=== PATIENT | female | born 1945 | race Caucasian/White ===

== ENCOUNTER 2020-08-08 01:09 | Inpatient (IN) | payer OTHER ==
--- OUTSIDE RECORDS SUMMARY | 2020-08-08 01:12 | XMS REPORT ---
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 Problem Chronic depressive person F34.1 Ac tive Problem Uncontrolled type 2 diabetes E11.65 Active mellitus with hyperglycemia Problem Anxiety F41.9 Active Problem Unsteady gait R26.81 Active Problem Primary insomnia F51.01 Active Problem 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 Active Problem Hyperlipidemia E78.5 Active Problem Allergic rhinitis J30.9 Active Problem Gastroesophageal reflux disease, K21.9 Active esophagitis presence not specified Problem Controlled type 2 diabetes mellitus E11.9 Active without complication, unspecified half-way insulin use status Problem Chronic fatigue R53.82 Active Problem Hallucinations, visual R44.1 Activ e Problem Macular degeneration, unspecified H35.30 Active laterality, unspecified type Problem Auditory hallucinations R44.0 Acti ve Problem Multiple joint pain M25.50 Active Problem Hyperglycemia R73.9 Active Problem HTN (hypertension) I10 Active Problem GERD (gastroesophageal reflux K21.9 Active disease) Problem History of tachycardia Z87.898 Activ e Problem Tremor R25.1 Active Problem Diarrhea, unspecified type R19.7 A ctive Problem Seasonal allergic rhinitis, J30.2 Active unspecified trigger Medications No Known Medications Results No Known Results Summary Purpose eClinicalWorks Submission
--- OUTSIDE RECORDS SUMMARY | 2020-08-08 01:12 | XMS REPORT ---
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 Active Assessment Hyperlipidemia E78.5 Active Assessment Anxiety F41.9 Active Assessment HTN (hypertension) I10 Active Assessment Uncontrolled type 2 diabetes E11.65 Active mellitus with hyperglycemia Problem Depression, unspecified depression F32.9 Active type [...] diabetes mellitus E11.9 Active without complication, unspecified intermediate project manager insulin use status Problem Chronic fatigue R53.82 [...] allergic rhinitis, J30.2 Active unspecified trigger Medications Medication Code Code Instructions Start End Status Dosage System Date Date Metformin HCl [facility] 20901203796 500 MG Orally Active 2 tablet twice a day Aspirin Adult [facility] 78620644222 325 MG Orally Active 1 tablet Once a day NovoFine Plus [facility] 39215796411 32G X 4 MM SC Active as directed once daily Metformin HCl [facility] 92327979361 500 Active TAKE 2 TABLETS BY MOUTH EVERY MORNING AND 2 TABLETS EVERY EVENING Fluticasone [facility] 22616206613 50 MCG/ACT Active USE 2 SPRAYS Propionate Externally IN EACH Once a day NOSTRIL EVERY DAY Zofran [facility] 48062618161 4 MG Orally May Active 1 tablet every 12 hrs 29, prn nausea 2019 Ciclopirox [facility] 07504529437 8 % Externally Active 1 application Once a day at to affecte d bedtime, and nail area clean nail once a week with alcohol x 3 months [facility] 91538233007 - up to 4 Active as dire cted Lancets Super times a day Thin Pantoprazole [facility] 73645055205 40 Active TAKE 1 TABLET Sodium BY MOUTH EVERY DAY Paroxetine HCl [facility] 33127790592 20 Active TAKE 1 TABLET BY MOUTH EVERY NIGHT AT BEDTIME Metformin HCl [facility] 73317830694 500 MG Active TAKE 2 TABLETS BY MOUTH EVERY MORNING AND 2 TABLETS EVERY EVENING Metoprolol [facility] 80404876014 25 Active TAKE 1 TA BLET Tartrate BY MOUTH TWICE DAILY [place] [facility] 97232533472 10-325 MG Active 1 tablet a s Orally every 6 needed hrs Pantoprazole [facility] 17509568499 40 MG Active TAKE 1 TABLET Sodium BY MOUTH EVERY DAY Tresiba [facility] 47052704252 100 UNIT/ML Active 14 units in FlexTouch Subcutaneous pm titrat e up daily 2 units every 3 days until fbg less 100 (max of 20 units daily) True Metrix [facility] 56994964311 - Active TEST FOU R Blood Glucose TIMES MARIE Y Test Lancets Super NDC 0 n/s finger April 07, Active one Thin stick twice 2017 NovoFine Plus [facility] 45104974917 32G X 4 MM SC Active as directed once daily Trazodone HCl [facility] 72478704110 50 MG Orally Inactive 1 tablet at Once a day bedtime as needed Paroxetine HCl [facility] 92668413614 30 MG Orally Active 1 tablet Once a day before bedtime Restasis [facility] 78165499040 0.05 % Active 1 drop into Ophthalmic affected eye Twice a day Results No Known Results Summary Purpose eClinicalWorks Submission
--- OUTSIDE RECORDS SUMMARY | 2020-08-08 01:12 | XMS REPORT | Continuity of Care Document ---
:1945 Author Organization [facility] t Address [address] [place] [address] Care Team Providers Name Role Phone Unavailable Unavailable Unavailable Problems Condition Condition Condition Status Onset Resolution Last Treating Co mments Source Name Details Category Date Date Treatment Clinician Date Allergic Allergic Problem [facility] GERD GERD Problem Active [facility] (gastroeso (gastroeso [facility] - phageal phageal [facility] reflux reflux l disease) disease) Outpat i ent Clinics Hyperlipid Hyperlipid Problem [facility] em[facility] Problem Active [facility] depressive depressive [facility] - person person [facility] Depression Depression Problem Active [facility] , , [facility] - unspecifie unspecifie Me moria d d l depression depression Ou tpati type type ent Clinics HTN HTN Problem Active [facility] (hypertens (hypertens [facility] - ion) ion) [facility] Controlled Controlled Problem Active [facility] type 2 type 2 [facility] - diabetes diabetes [facility] a mellitus mellitus l without without Outpati complicati complicati en t on, on, Clinics unspecifie unspecifie d long d longterm term insulin insulin use status use status Multiple Multiple Problem Active [facility] joint pain joint pain [facility] Diarrhea, Diarrhea, Problem Active [facility] unspecifie unspecifie [facility] - d type d type [facility] ent Clinics Hyperglyce Hyperglyce Problem Active [facility] nania annia [facility]ics Seasonal Seasonal Problem Active [facility] allergic allergic [facility] rhinitis, rhinitis, Jas laura unspecifie unspecifie l d trigger d trigger Outp ati ent Clinics History of History of Problem Active [facility] tachycardi tachycardi [facility] - a a [facility] Pinched Pinched Problem Active [facility] nerve nerve [facility] Sciatica Sciatica Problem Active [facility] associated associated [facility] - with with [facility]oria disorder disorder l of lumbar of lumbar Outp ati spine spine ent Clinics Tremor Tremor Problem Active [facility] Uncontroll Uncontroll Problem Active [facility] ed type 2 ed type 2 [facility] - diabetes diabetes Memori a mellitus mellitus l with with Outpati hyperglyce hyperglyce en t annia annia Clinics Unsteady Unsteady Problem Active [facility] gait gait [facility] Auditory Auditory Problem Active [facility] hallucinat hallucinat [facility] - ions ions [facility] Chronic Chronic Problem Active [facility] fatigue fatigue [facility] Anxiety Anxiety Problem Active [facility] Hallucinat Hallucinat Problem Active [facility] ions, ions, [facility] visual visual [facility] Macular Macular Problem Active [facility] degenerati degenerati [facility] - on, on, Memoria unspecifie unspecifie l d d [facility] laterality laterality en t , , Clinics unspecifie unspecifie d type d type Elevated Elevated Problem Active [facility] lymphocyte lymphocyte [facility] - s s [facility] Primary Primary Problem Active [facility] insomnia insomnia [facility] Allergies, Adverse Reactions, Alerts Allergy Allergy Status Severity Reaction(s) Onset Inactive Treating Comm ents Source Name Type Date Date Clinician PCN Adverse Active liver issues [facility] Reaction [facility] Benadryl Adverse Active heart race [facility] Reaction [facility] Zocor Adverse Active myalgia [facility] Reaction [facility] Lipitor Adverse Active myalgia [facility] Reaction [facility] Januvia Adverse Active joint pain [facility] Reaction [facility] Amoxicil Adverse Active Info Not [facility] luz maria Reaction Available [facility] Augmenti Adverse Active Info Not [facility] n Reaction Available [facility] Medications Ordered Filled Start Stop Current Ordering Indication Dosage Frequency Signature Comments Components Source Medication Medication Date Date Medication? Clinician (SIG) Name Name Refugio Huff Yes Na Zuñiga [address] [facility] Zofran Zofran Yes Na Zuñiga [address] [facility] Lancets Lancets Yes Na Zuñiga one [facility] Super Thin Super Thin 5-08 Ricardo es - 00:00: [facility] Fluticasone Fluticasone Yes Na Zuñiga USE [address] [facility] [facility] Propionate Propionate SPRAYS IN [facility] NOSTRIL l EVERY DAY [facility] NovoFine NovoFine Yes Na Zuñiga as [facility] Plus Plus directed [facility] Osceola Osceola Yes Na Zuñiga [address] [facility] as needed [facility] Metformin Metformin Yes Na Zuñiga TAKE [address] [facility] [facility] HCl HCl TABLETS BY [facility] - MOUTH Memoria EVERY l MORNING Outpati AND 2 ent TABLETS Clinics EVERY EVENING Ciclopirox Ciclopirox Yes Na Zuñiga [address] [facility] applicatio [facility] - n to [facility]oria affected l nail area [facility] True Metrix True Metrix Yes Na Zuñiga TEST FOUR [facility] Blood Blood TIMES [facility] - Glucose Glucose DAILY [facility] Test Test l [facility] Pantoprazol Pantoprazol Yes Na Zuñiga TAKE [address] e Sodium e Sodium TABLET BY L[facility]a kes - MOUTH Memoria EVERY DAY l [facility] Aspirin Aspirin Yes Na Zuñiga [address] Adult Adult [facility] Yes Na Zuñiga as [facility] Lancets Lancets directed [facility] - Super Thin Super Thin Mem oria l [facility] Paroxetine Paroxetine Yes Na Zuñiga TAKE [address] [facility] HCl HCl TABLET BY [facility] - MOUTH Memoria EVERY l NIGHT AT Outpati BEDTIME ent Clinics Metformin Metformin Yes Na Zuñiga [address] HCl HCl [facility] Tresiba Tresiba Yes Na Zuñiga [address] FlexTouch FlexTouch in pm [facility] s - titrate up Memoria 2 units l every 3 Outpati days until ent fbg less Clinics 100 (max of 20 units daily) Paroxetine Paroxetine Yes Na Zuñiga [address] HCl HCl before [facility] - bedtime [facility] ent Clinics Restasis Restasis Yes Na Zuñiga [address] [facility] - affected Memoria eye l Outpati ent Clinics Metformin Metformin Yes Na Zuñiga TAKE [address] [facility] [facility] HCl HCl TABLETS BY [facility] - MOUTH Memoria EVERY l MORNING Outpati AND 2 ent TABLETS Clinics EVERY EVENING Metoprolol Metoprolol Yes Na Zuñiga TAKE [address] [facility] Tartrate Tartrate TABLET BY [facility]a kes - MOUTH [facility] TWICE l DAILY Outpati ent Clinics Pantoprazol Pantoprazol Yes Na Zuñiga TAKE [address] [facility] e Sodium e Sodium TABLET BY Letha kes - MOUTH Memoria EVERY DAY l Outpati ent Clinics Trazodone Trazodone Yes Na Zuñiga [address] HCl HCl at bedtime [facility] - as needed [facility] ent Clinics Procedures This patient has no known procedures. Encounters Start End Encounter Admission Attending Care Care Encounter Source Date/Time Date/Time Type Type Clinicians Facility Department ID 2020-07-17 2020-07-17 [facility] [id number] [facility] 16:08[facility]00 16[facility]08:[address] [facility] Medicine l Medicine Outpati ent Clinics 2020-06-28 2020-06-28 [facility] [id number] [facility] 08[facility]20:00 08:20:[address] [facility] Medicine l Medicine Outpati ent Clinics 2020-05-29 2020-05-29 [facility] [id number] 08[facility]20:00 08:20:[address] [facility] Medicine l Medicine Outpati ent Clinics 2020-05-26 2020-05-26 [facility] [id number] [facility] 08[facility]19:00 08:19:[address] [facility] Medicine l Medicine Outpati ent Clinics 2020-03-29 2020-03-29 [facility] [id number] [facility] 09:20:00 09:20:[address] [facility] Medicine l Medicine Outpati ent Clinics 2020-03-15 2020-03-15 [facility] [id number] [facility] 09:20:00 09:20:[address] [facility] - [facility] Medicine l Medicine Outpati ent Clinics 2019-12-28 2019-12-28 [facility] [id number] [facility] 14[facility]40:00 14:40:[address] [facility] - [facility] Medicine l Medicine Outpati ent Clinics 2019-12-03 2019-12-03 [facility] [id number] 09:02:00 09:02:[address] [facility] - [facility] Medicine l Medicine Outpati ent Clinics 2019-11-05 2019-11-05 [facility] [id number] [facility] 10:40:00 10:40:[address] [facility] - Drive [facility] Medicine l Medicine Outpati ent Clinics 2019-09-22 2019-09-22 [facility] [id number] [facility] 09:45:00 09:45:[address] [facility] - [facility] Medicine l Medicine Outpati ent Clinics 2019-08-06 2019-08-06 [facility] [id number] 13:20:00 13:20:[address] [facility] - [facility] Medicine l Medicine Outpati ent Clinics 2019-07-28 2019-07-28 [facility] [id number] [facility] 09:12:00 09:12:[address] [facility] - Drive [facility] Medicine l Medicine Outpati ent Clinics 2019-07-05 2019-07-05 [facility] [id number] [facility] 09:57:00 09:57:[address] [facility] - Drive [facility] Medicine l Medicine Outpati ent Clinics 2019-05-31 2019-05-31 [facility] [id number] 16:25:00 16:25:[address] [facility] - Drive [facility] Medicine l Medicine Outpati ent Clinics 2019-01-12 2019-01-12 [facility] [id number] [facility] 09[facility]29:00 09:29:[address] [facility] - Drive [facility] Medicine l Medicine Outpati ent Clinics 2019-01-11 2019-01-11 [facility] [id number] [facility] 09[facility]30:00 09:30:[address] [facility] - Drive [facility] Medicine l Medicine Outpati ent Clinics 2018-12-04 2018-12-04 [facility] [id number] [facility] 11:01:00 11:01:[address] [facility] - Drive [facility] Medicine l Medicine Outpati ent Clinics 2018-12-03 2018-12-03 [facility] [id number] [facility] 16:11:00 16:11:[address] [facility] - Drive [facility] Medicine l Medicine Outpati ent Clinics 2018-11-23 2018-11-23 [facility] [id number] 09:06:00 09:06:[address] [facility] - Drive [facility] Medicine l Medicine Outpati ent Clinics 2018-11-10 2018-11-10 [facility] [id number] [facility] 10:15:00 10:15:[address] [facility] - Drive [facility] Medicine l Medicine Outpati ent Clinics 2018-08-25 2018-08-25 [facility] [id number] [facility] 10:26:00 10:26:[address] [facility] - Drive [facility] Medicine l Medicine Outpati ent Clinics 2018-08-04 2018-08-04 [facility] [id number] 10:15:00 10:15:[address] [facility] - Drive [facility] Medicine l Medicine Outpati ent Clinics 2018-06-24 2018-06-24 [facility] [id number] [facility] 10:15:00 10:15:[address] [facility] - Drive [facility] Medicine l Medicine Outpati ent Clinics 2018-05-04 2018-05-04 [facility] [id number] [facility] 10:00:00 10:00:[address] [facility] - Drive [facility] Medicine l Medicine Outpati ent Clinics 2018-04-22 2018-04-22 [facility] [id number] [facility] 17:08:00 17:08:[address] [facility] - Drive [facility] Medicine Outpati ent Clinics 2018-04-07 2018-04-07 [facility] [id number] 15:11:00 15:11:00 [place] [employer] - [employer] [facility] Medicine Outpati ent Clinics 2018-04-06 2018-04-06 [facility] [id number] 09:00:00 09:00:00 t ih[place] s - [employer] [facility] Medicine Outpati ent Clinics 2018-03-23 2018-03-23 [facility] [id number] [facility] 14:47:00 14:47:00 t [place] [employer] [facility] Medicine Outpati ent Clinics 2018-03-23 2018-03-23 [facility] [id number] 11:53:00 11:53:00 t [place] [employer] [facility] Medicine Outpati ent Clinics 2018-03-18 2018-03-18 [facility] [id number] 08:45:00 08:45:00 t [place] [employer] [facility] Medicine Outpati ent Clinics Results This patient has no known results.
--- OUTSIDE RECORDS SUMMARY | 2020-08-08 01:12 | XMS REPORT ---
:1945 Author Organization eClinicalWorks Care Team Providers Name Role Phone Zuñiga, Na Provider Role Unavailable Allergies, Adverse Reactions, Alerts Substance Reaction Event Type PCN liver issues Drug Allergy Zocor myalgia Drug Allergy Lipitor myalgia Drug Allergy Januvia joint pain Drug Allergy Benadryl heart race Drug Allergy Augmentin Info Not Available Drug Allergy Amoxicillin Info Not Available Drug Allergy Problems Problem Type Condition Code Onset Dates Condition Statu s Assessment Gastroesophageal reflux disease, K21.9 Active esophagitis presence not specified Assessment Shaking R25.1 Active Assessment Primary insomnia F51.01 Active Assessment Elevated [...] diabetes mellitus E11.9 Active without complication, unspecified penitentiary insulin use status Problem Chronic fatigue R53.82 [...] Start End Status Dosage System Date Date Juany [facility] 66526375896 4 MG Orally May Active 1 tablet every 12 hrs , prn nausea 2019 Ciclopirox [facility] 71555046286 8 % Externally Active 1 application Once a day at to affecte d bedtime, and nail area clean nail once a week with alcohol x 3 months Lancets Super NDC 0 n/s finger April 07, Active one Thin stick twice 2017 Paroxetine HCl [facility] 00453639073 20 Inactive TAKE 1 TABLET BY MOUTH EVERY NIGHT AT BEDTIME Tresiba [facility] 67582342894 100 UNIT/ML Active 14 units in FlexTouch Subcutaneous pm titrat e up daily 2 units every 3 days until fbg less 100 (max of 20 units daily) Fluticasone [facility] 16572684499 50 MCG/ACT Active USE 2 SPRAYS Propionate Externally IN EACH Once a day NOSTRIL EVERY DAY True Metrix [facility] 93603232153 - Active TEST FOU R Blood Glucose TIMES MARIE Y Test Paroxetine HCl [facility] 06832155950 30 MG Orally Active 1 tablet Once a day before bedtime Restasis [facility] 80756338756 0.05 % Active 1 drop into Ophthalmic affected eye Twice a day Pantoprazole [facility] 40999475845 40 MG Active TAKE 1 TABLET Sodium BY MOUTH EVERY DAY Trazodone HCl [facility] 24213466972 50 MG Orally Inactive 1 tablet at Once a day bedtime as needed Metformin HCl [facility] 39671864454 500 MG Active TAKE 2 TABLETS BY MOUTH EVERY MORNING AND 2 TABLETS EVERY EVENING NovoFine Plus [facility] 15116076580 32G X 4 MM SC Active as directed once daily [facility] 44077847520 - up to 4 Active as dire cted Lancets Super times a day Thin Metformin HCl [facility] 87756432149 500 Active TAKE 2 TABLETS BY MOUTH EVERY MORNING AND 2 TABLETS EVERY EVENING [place] [facility] 47502585606 10-325 MG Active 1 tablet a s Orally every 6 needed hrs Metformin HCl [facility] 13518525807 500 MG Orally Active 2 tablet twice a day Prozac [facility] 59158566701 20 MG Orally May Active 1 capsu le Once a day 2019 Metoprolol [facility] 23112809870 25 Active TAKE 1 TA BLET Tartrate BY MOUTH TWICE DAILY Pantoprazole [facility] 04840605052 40 Active TAKE 1 TABLET Sodium BY MOUTH EVERY DAY NovoFine Plus [facility] 62333170117 32G X 4 MM SC Active as directed once daily Aspirin Adult [facility] 89437718935 325 MG Orally Active 1 tablet Once a day Results No Known Results Summary Purpose eClinicalWorks Submission
--- OUTSIDE RECORDS SUMMARY | 2020-08-08 01:12 | XMS REPORT ---
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 Problem Unsteady gait R26.81 Active Problem Uncontrolled type 2 diabetes E11.65 Active mellitus with hyperglycemia Problem 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 Active Problem Allergic rhinitis J30.9 Active Problem Macular degeneration, unspecified H35.30 Active laterality, unspecified type Problem Controlled type 2 diabetes mellitus E11.9 Active without complication, unspecified nursing home insulin use status Problem Chronic depressive person F34.1 Ac tive Problem Primary insomnia F51.01 Active Problem Hallucinations, visual R44.1 Activ e Problem Anxiety F41.9 Active Problem Auditory hallucinations R44.0 Acti ve Problem Chronic fatigue R53.82 Active Problem GERD (gastroesophageal reflux K21.9 Active disease) Problem Multiple joint pain M25.50 Active Problem Hyperlipidemia E78.5 Active Problem HTN (hypertension) I10 Active Problem History of tachycardia Z87.898 Activ e Problem Seasonal allergic rhinitis, J30.2 Active unspecified trigger Problem Hyperglycemia R73.9 Active Problem Pinched nerve G58.9 Active Problem Depression, unspecified depression F32.9 Active type Problem Diarrhea, unspecified type R19.7 A ctive Problem Tremor R25.1 Active Medications No Known Medications Results No Known Results Summary Purpose eClinicalWorks Submission
[2020-08-08 01:48] LABS: Absolute Lymphocytes (CBC) 1.9 K/uL (0.7-4.9); Basophils % 0.6 % (0-1.3); Hematocrit 38.2 % (36.0-45.0); Lymphocytes % 28.6 % (15.3-44.8)
[2020-08-08 01:51] LABS: Protime INR 0.99
[2020-08-08 02:00] LABS: ALT/SGPT 21 U/L (12-78); AST/SGOT 15 U/L (15-37); Albumin 3.8 g/dL (3.4-5.0); Alkaline Phosphatase 45 U/L (45-117); BUN Blood Urea Nitrogen 20 mg/dL (7-18); Bicarbonate 29 mmol/L (21-32); Bilirubin Direct 0.1 mg/dL (0-0.2); Bilirubin Total 0.3 mg/dL (0.2-1.0); Creatine Phosphokinase 68 U/L (26-192); Glucose Level 244 mg/dL (74-106); Lipase 169 U/L (73-393); Magnesium 2.1 mg/dL (1.8-2.4); Potassium 3.5 mmol/L (3.5-5.1); Protein, Total 7.7 g/dL (6.4-8.2); Sodium Level 137 mmol/L (136-145); Troponin (Emerg Dept Use Only) < 0.02 ng/mL (0.0-0.045)
[2020-08-08 02:42] LABS: Urine Blood NEGATIVE (NEG); Urine Glucose 2+ (NEG); Urine Protein NEGATIVE (NEG); Urine Specific Gravity 1.025 (1.005-1.030); Urine pH 5.5 (5.0-7.0)
[2020-08-08 02:43] LABS: Urine Bacteria <20 /HPF (<20); Urine Culture Reflex Order NOT NEEDED; Urine RBC <5 /HPF (NONE SEEN)
--- NOTE | 2020-08-08 03:16 | EDPHYS ---
Physician Documentation [facility] Name: Cora Moon Age: 74 yrs Sex: Female : 1945 Arrival Date: 08/08/2020 Time: 01:09 Bed 6 Private MD: ED Physician Romie Noland HPI: 08/08 06:37 This 74 yrs old Female presents to ER via EMS with complaints of Altered tw4 Mental Status. 06:37 The patient presents with decreased mental status, disorientation. Onset: The tw4 symptoms/episode began/occurred today. Possible causes: unknown. Associated signs and symptoms: The patient has no apparent associated signs or symptoms. Current symptoms: In the emergency department the patient's symptoms are unchanged from the initial presentation. Patient's baseline: Neuro: alert but confused, Motor: no deficits, Ambulation: walks without assistance, Speech: normal. The patient has not experienced similar symptoms in the past. Historical: - Allergies: 01:12 PENICILLINS; ss - PMHx: 01:12 Diabetes - NIDDM; ss - PSHx: 01:12 None; ss - Immunization history:: Adult Immunizations unknown. - Social history:: Smoking status: unknown. ROS: 06:37 Constitutional: Negative for fever, chills, and weight loss, Eyes: Negative for injury, tw4 pain, redness, and discharge, Cardiovascular: Negative for chest pain, palpitations, and edema, Respiratory: Negative for shortness of breath, cough, wheezing, and pleuritic chest pain, Abdomen/GI: Negative for abdominal pain, nausea, vomiting, diarrhea, and constipation, Back: Negative for injury and pain, MS/Extremity: Negative for injury and deformity, Skin: Negative for injury, rash, and discoloration. 06:37 Neuro: Positive for altered mental status, Negative for dizziness, gait disturbance, headache, hearing loss, loss of consciousness, numbness, seizure activity, speech changes, syncope, near syncope, tingling, tinnitus, tremor, visual changes, weakness, acute changes. Exam: 06:37 Constitutional: This is a well developed, well nourished patient who is awake, alert, tw4 and in no acute distress. Head/Face: Normocephalic, atraumatic. Chest/axilla: Normal chest wall appearance and motion. Nontender with no deformity. No lesions are appreciated. Cardiovascular: Regular rate and rhythm with a normal S1 and S2. No gallops, murmurs, or rubs. Normal PMI, no JVD. No pulse deficits. Respiratory: Lungs have equal breath sounds bilaterally, clear to auscultation and percussion. No rales, rhonchi or wheezes noted. No increased work of breathing, no retractions or nasal flaring. Abdomen/GI: Soft, non-tender, with normal bowel sounds. No distension or tympany. No guarding or rebound. No evidence of tenderness throughout. Back: No spinal tenderness. No costovertebral tenderness. Full range of motion. Skin: Warm, dry with normal turgor. Normal color with no rashes, no lesions, and no evidence of cellulitis. MS/ Extremity: Pulses equal, no cyanosis. Neurovascular intact. Full, normal range of motion. 06:37 Neuro: Orientation: to person, place, Mentation: slow to respond, confused, Memory: is normal, Cranial nerves: CN II- XII are normal as tested, Motor: strength is normal, Sensation: is normal. Vital Signs: 01:15 BP 173 / 87; Pulse 93; Resp 18; Temp 98.2; Pulse Ox 99% on R/A; oe 02:06 BP 154 / 72; Pulse 91; Resp 16; Pulse Ox 99% ; rr5 03:07 BP 150 / 78; Pulse 89; Resp 19; Pulse Ox 98% ; rr5 04:15 BP 146 / 69; Pulse 88; Resp 20; Pulse Ox 99% ; rr5 04:57 BP 141 / 70; Pulse 80; Resp 16; Pulse Ox 98% ; rr5 MDM: 01:11 Patient medically screened. tw4 06:37 Differential Diagnosis: CVA, electrolyte abnormality, pneumonia, UTI, volume depletion. tw4 Data reviewed: vital signs, nurses notes. Data reviewed: lab test result(s), CBC, electrolytes, EKG, radiologic studies, CT scan. Data interpreted: Pulse oximetry: Interpretation: normal. Counseling: I had a detailed discussion with the patient and/or guardian regarding: the historical points, exam findings, and any diagnostic results supporting the discharge/admit diagnosis, lab results, radiology results. Physician consultation: Oniel STEELE regarding admission, to the medical/surgical unit. patient's condition, and will see patient in ED. 08/08 01:25 Order name: Basic Metabolic Panel; Complete Time: 02:44 tw4 08/08 03:07 Interpretation: Normal except: GLUC 244; BUN 20; GFR 83. tw4 08/08 01:25 Order name: CBC with Diff; Complete Time: 02:44 tw4 08/08 01:25 Order name: Ckmb; Complete Time: 02:44 tw4 08/08 01:25 Order name: CPK; Complete Time: 02:44 tw4 08/08 01:25 Order name: Hepatic Function; Complete Time: 02:44 tw4 08/08 03:07 Interpretation: Normal except: GLOB 3.9; A/G 1.0. tw4 08/08 01:25 Order name: Lipase; Complete Time: 02:44 tw4 08/08 01:25 Order name: CT Head Brain wo Cont 4 08/08 01:25 Order name: Magnesium; Complete Time: 02:44 tw4 08/08 01:25 Order name: Protime (+inr); Complete Time: 02:44 tw4 08/08 01:25 Order name: Ptt, Activated; Complete Time: 02:44 tw4 08/08 01:25 Order name: Troponin (emerg Dept Use Only); Complete Time: 02:44 tw4 08/08 01:39 Order name: Glucose, Ancillary Testing; Complete Time: 02:44 [facility] 08/08 03:07 Interpretation: Normal except: GLUC,ANCIL 251. tw4 08/08 01:56 Order name: Urine Microscopic Only; Complete Time: 02:44 08/08 01:57 Order name: Urine Dipstick--Ancillary (enter results); Complete Time: 02:44 08/08 01:25 Order name: EKG; Complete Time: 01:26 tw4 08/08 01:25 Order name: Cardiac monitoring; Complete Time: 01:35 tw4 08/08 01:25 Order name: EKG - Nurse/Tech; Complete Time: 01:35 4 08/08 01:25 Order name: IV Saline Lock; Complete Time: 01:35 4 08/08 01:25 Order name: Labs collected and sent; Complete Time: 01:35 tw4 08/08 01:25 Order name: NPO; Complete Time: 01:35 08/08 01:25 Order name: O2 Per Protocol; Complete Time: 01:38 4 08/08 01:25 Order name: O2 Sat Monitoring; Complete Time: 01:38 4 08/08 01:25 Order name: Urine Dipstick-Ancillary (obtain specimen); Complete Time: 01:57 [facility] 08/08 02:06 Order name: Straight Cath - Urine; Complete Time: 02:06 5 08/08 03:51 Order name: CONS Physician Consult EDMS Administered Medications: No medications were administered Disposition: 08/08/20 03:15 Hospitalization ordered by Sonali Franco for Observation. Preliminary diagnosis is Altered mental status, unspecified. - Bed requested for Telemetry/MedSurg (observation). - Status is Observation. ss - Condition is Stable. - Problem is new. - Symptoms are unchanged. Signatures: Dispatcher [employer] EDMS Viktoriya Lutz RN RN ss Keely Bishop RN RN cg Romie Noland MD MD tw4 Jesse Freitas RN RN rr5 Janette Nieves RN RN mt2 Corrections: (The following items were deleted from the chart) 04:10 03:15 Hospitalization Ordered by Sonali Franco MD for Observation. Preliminary cg diagnosis is Altered mental status, unspecified. Bed requested for Telemetry/MedSurg (observation). Status is Observation. Condition is Stable. Problem is new. Symptoms are unchanged. [facility] 04:56 04:10 08/08/2020 03:15 Hospitalization Ordered by Sonali Franco MD for Observation. ss Preliminary diagnosis is Altered mental status, unspecified. Bed requested for Telemetry/MedSurg (observation). Status is Observation. Condition is Stable. Problem is new. Symptoms are unchanged. cg
--- NOTE | 2020-08-08 03:16 | ER ---
Nurse's Notes [facility] Name: Cora Moon Age: 74 yrs Sex: Female : 1945 Arrival Date: 08/08/2020 Time: 01:09 Bed 6 Private MD: Diagnosis: Altered mental status, unspecified Presentation: 08/08 01:10 Chief complaint: EMS states: AMS that began at 1900 yesterday evening. Pt believes it's 2011 and was talking about things that didn't make sense at home. Coronavirus screen: Client denies travel out of the [place] in the last 14 days. Ebola Screen: Patient denies exposure to infectious person. Patient denies travel to an Ebola-affected area in the 21 days before illness onset. Initial Sepsis Screen: Does the patient meet any 2 criteria? No. Patient's initial sepsis screen is negative. Does the patient have a suspected source of infection? No. Patient's initial sepsis screen is negative. Risk Assessment: Do you want to hurt yourself or someone else? Patient reports no desire to harm self or others. Onset of symptoms was August 07, 2020. 01:10 Method Of Arrival: EMS: [facility] 01:10 Acuity: DERRICK 2 01:12 Care prior to arrival: Glucose check: 248. Triage Assessment: 01:36 General: Appears in no apparent distress. Behavior is calm. Pain: Denies pain. mt2 Historical: - Allergies: 01:12 PENICILLINS; ss - PMHx: 01:12 Diabetes - NIDDM; ss - PSHx: 01:12 None; ss - Immunization history:: Adult Immunizations unknown. - Social history:: Smoking status: unknown. Screenin:36 Abuse screen: Denies threats or abuse. Nutritional screening: No deficits noted. mt2 Tuberculosis screening: No symptoms or risk factors identified. Fall Risk Mental Status- Overestimates/Forgets Limitations (15 pts.). Assessment: 01:20 General: Appears in no apparent distress. comfortable, Behavior is calm, cooperative. rr5 Pain: Unable to use pain scale. Patient appears confused. Neuro: Level of Consciousness is awake, alert, obeys commands, confused, Oriented to person, Reports confused. Cardiovascular: Capillary refill < 3 seconds Patient's skin is warm and dry. Respiratory: Airway is patent Respiratory effort is even, unlabored, Respiratory pattern is regular, symmetrical. GI: No signs and/or symptoms were reported involving the gastrointestinal system. : No signs and/or symptoms were reported regarding the genitourinary system. EENT: No signs and/or symptoms were reported regarding the EENT system. Derm: Skin is intact, is healthy with good turgor, Skin temperature is warm. Musculoskeletal: Circulation, motion, and sensation intact. Capillary refill < 3 seconds. 01:35 Reassessment: Patient appears in no apparent distress at this time. send to CT scan. rr5 03:00 Reassessment: Patient appears in no apparent distress at this time. awaiting for rr5 results. family member at bedside. 03:30 Reassessment: hospitalist at bedside examining the patient. rr5 04:00 Reassessment: Patient appears in no apparent distress at this time. Patient and/or rr5 family updated on plan of care and expected duration. Pain level reassessed. 04:56 Reassessment: Patient appears in no apparent distress at this time. transferred to rr5 medical surgical floor, VS hemodynamically stable. Vital Signs: 01:15 BP 173 / 87; Pulse 93; Resp 18; Temp 98.2; Pulse Ox 99% on R/A; oe 02:06 BP 154 / 72; Pulse 91; Resp 16; Pulse Ox 99% ; rr5 03:07 BP 150 / 78; Pulse 89; Resp 19; Pulse Ox 98% ; rr5 04:15 BP 146 / 69; Pulse 88; Resp 20; Pulse Ox 99% ; rr5 04:57 BP 141 / 70; Pulse 80; Resp 16; Pulse Ox 98% ; rr5 ED Course: 01:09 Patient arrived in ED. ss 01:10 Janette Nieves, BARBARA is Primary Nurse. mt2 01:10 Romie Noland MD is Attending Physician. tw4 01:12 Triage completed. ss 01:12 Arm band placed on right wrist. ss 01:25 Patient has correct armband on for positive identification. Call light in reach. Side mt2 rails up X 1. Side rails up X2. 01:36 EKG done, by photographic equipment technician. reviewed by Romie Noland MD. oe 01:37 Inserted saline lock: 20 gauge in right antecubital area, using aseptic technique. mt2 ,using aseptic technique. STARTED BY LUIS Ponce RN Blood collected. 01:54 CT Head Brain wo Cont In Process Unspecified. EDMS 02:00 Urine collected: inserted aseptically by janette JIMENEZ. rr5 03:15 Sonali Franco MD is Hospitalizing Provider. tw4 04:19 No provider procedures requiring assistance completed. Patient admitted, IV remains in rr5 place. intact, No redness/swelling at site. Administered Medications: No medications were administered Outcome: 03:15 Decision to Hospitalize by Provider. tw4 04:19 Admitted to Med/surg accompanied by nurse, via stretcher, room 228, with chart, Report rr5 called to luana 04:19 Condition: stable 04:19 Instructed on the need for admit. 04:56 Patient left the ED. Signatures: Dispatcher [employer] EDViktoriya Heller, RN RN Jose Sweeney Terrence, MD MD tw4 Luis Freitas RN RN rr5 Janette Nieves RN RN mt2
--- NOTE | 2020-08-08 04:11 | P.HP ---
Certification for Inpatient With expected LOS: >2 Midnights Patient will require the following post-hospital care: None Practitioner: I am a practitioner with admitting privileges, knowledge of patient current condition, hospital course, and medical plan of care. Services: Services provided to patient in accordance with Admission requirements found in Title 42 Section 412.3 of the Code of Federal Regulations <Oniel Murray - Last Filed: 08/08/20 04:05> Patient History Date of Service: 08/08/20 Reason for admission: Altered mental status History of Present Illness: 74-year-old female with past medical history of type 2 diabetes mellitus presents to the emergency room brought by EMS with complaints of altered mental status. Per EMS-family noted patient to be confused and not acting herself and approximately 1900 yesterday evening. In the emergency room. I spoke with the son who is in the room with the patient. Patient is unable to answer questions. Son states that the patient had been doing just fine and from yesterday at 7:00 p.m. through today patient is noted to be confused, not answering questions appropriately and not making sense when she answers questions. She has no neurologic deficits. Strength is 5/5 on all 4 extremities. Patient has no other medical history other than diabetes. In the ER her blood glucose is slightly elevated to 244 on admission. Patient is alert and in no distress. CT of the head was negative for acute pathology. Tsh and ammonia pending. Son states that patient has no history of smoking, alcohol abuse or illegal drug use. Patient will be admitted and further evaluated. Home medications list reviewed: No - Past Medical/Surgical History -: Type 2 diabetes mellitus -: Unknown Psychosocial/ Personal History: Lives at home alone. - Family History Family History: Reviewed- Non-Contributory - Social History Smoking Status: Never smoker Alcohol use: No CD- Drugs: No Caffeine use: No Place of Residence: Home <Oniel Murray - Last Filed: 08/08/20 04:05> Date of Service: 08/08/20 <Sonali Franco - Last Filed: 08/10/20 13:37> Allergies Penicillins Allergy (Verified 08/08/20 07:35) Unknown Review of Systems is unable to be obtained <Oniel Murray - Last Filed: 08/08/20 04:05> Physical Examination - Vital Signs Temperature: 98.2 F Blood Pressure: 150/78 Pulse: 89 Respirations: 19 Pulse Ox (%): 98 (RA) - Physical Exam General: Alert, In no apparent distress, Cooperative HEENT: Atraumatic, Normocephalic, PERRLA Neck: Supple, No Thyromegaly, Other (Trachea midline) Respiratory: Clear to auscultation bilaterally, Normal air movement Cardiovascular: No edema, Normal pulses, Regular rate/rhythm Capillary refill: <2 Seconds Gastrointestinal: Normal bowel sounds, Soft and benign Musculoskeletal: No clubbing, No swelling, No contractures, No erythema Integumentary: No rashes, No breakdown, No significant lesion Neurological: Normal gait, Normal strength at 5/5 x4 extr, Normal tone - Studies Laboratory Data (last 24 hrs) 08/08/20 01:30: PT 11.7, INR 0.99, APTT 28.3 08/08/20 01:30: WBC 6.8, Hgb 12.7, Hct 38.2, Plt Count 347 08/08/20 01:30: Sodium 137, Potassium 3.5, BUN 20 H, Creatinine 0.69, Glucose 244 H, Magnesium 2.1, Total Bilirubin 0.3, AST 15, ALT 21, Alkaline Phosphatase 45, Lipase 169 <Oniel Murray - Last Filed: 08/08/20 04:05> Assessment and Plan - Plan Impression: Altered mental status: Type 2 diabetes mellitus: Plan: Altered mental status: Etiology unclear. CT of the head was negative for acute pathology. No intracranial bleed. Will order MRI of the brain. Consult Neurology-. Place on telemetry. Family member bedside. TSH and amm onia levels pending Type 2 diabetes mellitus: Will start Accu-Cheks a.c. HS. Will start mild sliding scale insulin. Patient's slightly elevated blood glucose at 244 on arri sandra to ED. Discharge Plan: Home Plan to discharge in: Greater than 2 days - Advance Directives Does patient have a Living Will: No Does patient have a Durable POA for Healthcare: No - Code Status/Comfort Care Code Status Assessed: Yes Time Spent Managing Pts Care (In Minutes): 55 <Oniel Murray - Last Filed: 08/08/20 04:05> - Problems (Diagnosis) (1) Altered mental status Current Visit: Yes Status: Acute (2) Drug intoxication Current Visit: Yes Status: Acute (3) Stroke Current Visit: Yes Status: Acute <Marino Francojessica Krystian - Last Filed: 08/10/20 13:37> Date of Service: 08/08/20 PATIENT SEEN AND EXAMINED. AGREE WITH ABOVE PLAN OF CARE. Subjective Date of Service: 08/08/20 PATIENT IS CONFUSED AND UNABLE TO ANSWER ANY OF MY QUESTIONS. SHE DOES NOD HER HEAD. SHE IS HAVING A HARD TIME FOLLOWING COMMANDS. SPOKE TO HER SON WHO STATES THAT SHE MAY HAVE ACCIDENTALLY TAKEN THE WRONG MEDICATION OR TAKEN AN EXTRA DOSE OF HER HOME MEDICATIONS. Review of Systems 10-point ROS is otherwise unremarkable Physical Examination - Vital Signs REVIEWED - Physical Exam General: Alert, In no apparent distress, Oriented x3 Respiratory: Clear to auscultation bilaterally, Normal air movement Cardiovascular: Regular rate/rhythm, Normal S1 S2, No murmurs Gastrointestinal: Normal bowel sounds, Soft and benign, Non-distended, No tenderness Musculoskeletal: No clubbing, No swelling, No tenderness Neurological: Normal tone, Cranial nerves 3-12 intact, Abnormal speech, Abnormal strength, Abnormal affect Assessment & Plan - Problems (Diagnosis) (1) Altered mental status Current Visit: Yes Status: Acute (2) Drug intoxication Current Visit: Yes Status: Acute (3) Stroke Current Visit: Yes Status: Acute - Plan 1. Physical therapy evaluation 2. Speech therapy evaluation 3. Anti-platelet therapy and statin therapy 4. Lipid profile in the morning 5. MRI of the brain/echocardiogram/carotid Doppler 6. Physically patient is doing well and may benefit more from outpatient physical therapy and inpatient rehab 7. Neurology consultation 8. Permissive hypertension and gradual blood pressure control 9. Neuro checks every 4 hr 10. GI and DVT prophylaxis <Sonali Franco - Last Filed: 08/10/20 13:37>
--- NOTE | 2020-08-08 05:20 | EKG ---
Test Date: 2020-08-08 Test Time: 01:25:13 Tangled Yarn Spool Straightener: LIDA MEASUREMENT RESULTS: Intervals: Rate: 87 IN: 116 QRSD: 82 QT: 388 QTc: 466 [place]: P: 61 IN: 116 QRS: 49 T: 18 INTERPRETIVE STATEMENTS: Normal sinus rhythm Nonspecific T wave abnormality Abnormal ECG Compared to ECG 01/06/2017 11:53:33 T-wave abnormality now present ST (T wave) deviation no longer present Possible ischemia no longer present Electronically Signed On 08-08-20 05:20:21 CDT by Lincoln De Guzman
[2020-08-08] MEDS: NA CHLORIDE 0.9% 1,000 ML IV SCH ×2 (05:42→16:53)
[2020-08-08] MEDS: INSULIN -REGULAR HUMAN 50 UNIT/0.5 ML ML SQ SCH ×4 (07:30→21:00)
[2020-08-08 07:50] VITALS: BMI 19.9
[2020-08-08] MEDS ORDERED: POTASSIUM CL SA 10 MEQ TAB PO ONE (09:00)
[2020-08-08] MEDS: ENOXAPARIN 40 MG/0.4 ML SQ SCH (09:32)
--- NOTE | 2020-08-08 11:17 | RAD REPORT ---
EXAM DESCRIPTION: CT Head Without Intravenous Contrast CLINICAL HISTORY: The patient is 74 years old and is Female; CONFUSED TECHNIQUE: Axial computed tomography images of the head/brain without intravenous contrast. Sagitt al and coronal reformatted images were created and reviewed. This CT exam was performed using one o r more of the following dose reduction techniques: automated exposure control, adjustment of the mA and/or kV according to patient size, and/or use of iterative reconstruction technique. COMPARISON: No relevant prior studies available. FINDINGS: BRAIN: No intracranial hemorrhage, mass effect, or midline shift is seen. There are no e xtra-axial fluid collections. There is diffuse cerebral atrophy present, consistent with this patie nt's age. There is patchy hypoattenuation of the deep white matter which is non-specific, but most likely owing to chronic small vessel ischemic change in a patient of this age group. VENTRICLES: Unremarkable. No ventriculomegaly. BONES/JOINTS: No acute fracture. SOFT TISSUES: Unremarkable. SINUSES: Unremarkable as visualized. No acute sinusitis. MASTOID AIR CELLS: Unremarkable as visualized. No mastoid effusion. ORBITS: Unremarkable as visualized. IMPRESSION: Age-related atrophy and chronic white matter ischemic changes, with no evidence of an ac qawalangin intracranial abnormality. Electronically signed by: Lin Nuñez MD 08/08/2020 2:01 AM CDT Due to temporary technical issues with the PACS/Fluency reporting system, reports are being signed by the in house radiologist without review as a courtesy to ensure prompt reporting. The interpreting r adiologist is fully responsible for the content of the report.
[2020-08-08] MEDS ORDERED: PNEUMOCOCCAL VACCINE 0.5 ML IMVAC ONE (14:00)
[2020-08-08] MEDS ORDERED: LORazepam 2 MG/ML VIAL IV SCH (15:00)
--- NOTE | 2020-08-08 15:59 | RAD REPORT ---
EXAM DESCRIPTION: MRI - Brain Wo Cont - 08/08/2020 3:39 pm CLINICAL HISTORY: Altered mental status COMPARISON: Head Brain Wo Cont dated 08/08/2020 TECHNIQUE: Sagittal T1-weighted images were obtained along with axial PD, heavily T2-weighted and T2 -FLAIR images. Axial DWI and ADC mapping sequences were also obtained along with coronal heavily T2-w eighted images. FINDINGS: No intracranial hemorrhage, mass or acute infarction. There is no edema or shift of midlin e structures. No extra-axial fluid collections. Borges-matter/white matter junction is preserved. Signa l voids are seen as a normal finding in the major intracranial vessels. Mild atrophy and mild chronic ischemic changes are noted. Ventricles are in proportion to volume loss . Mastoid air cells and paranasal sinuses are clear. No globe or orbital content abnormality. No sella or supra sella abnormality. IMPRESSION: No infarction or acute intracranial finding. Mild atrophy and chronic ischemic change.
--- NOTE | 2020-08-08 22:37 | CON ---
Reason For Consultation: Consultation called because of altered mental status. History Of Present Illness: Ms. Moon is a 74-year-old patient with history of type 2 diabetes collins samiaus, lives alone at home, and no other significant past medical history, but was determined to be m ore confused, disoriented by family, and was brought into [facility] on 08/08/2020. At the time of my evaluation, the patient was in the room. She is alert, but disoriented to the exact date, day of the week. She did know that she was in the hospital and had difficulty identifying her right from left and following instructions to cross the midline such as use a right index finger to touch the left earlobe. She did not have any asymmetries of the face, the arm, or the leg in terms of move ments or sensations. Her head CT scan and brain MRI showed no acute ischemic or hemorrhagic changes. Her blood work showed a completely normal complete blood count with differential. Coagulation pane l was normal. Blood sugars were elevated slightly to a max of 244. Her liver function studies were normal. Ammonia less than 10. Creatinine normal. Urinalysis showed 3+ ketones and 2+ glucose, othe rwise unremarkable. Past Medical History: As indicated. Family History: Noncontributory. Allergies: PENICILLIN. Social History: No alcohol, tobacco, or IV drug use. Review of Systems: Unable to get a reliable review of systems. Physical Examination: Vital Signs: Blood pressure 132/69, pulse from 99 to 107, respiratory rate 16 to 20, temperature 98, oxygen saturation 94% on room air. Weight 101 pounds, height 5 feet, BMI 19.9. General: Ms. Moon again is resting in bed comfortably. She is in no acute distress. HEENT: She is normocephalic, atraumatic. Sclerae anicteric. Oropharynx is pink and moist. Neck: Supple. Chest: Clear. Heart: Regular. Extremities: No edema, cyanosis, or clubbing. Neurological: She is alert and oriented to person, place, and she does know she is confused, but not oriented to day of the week, exact date and year. She does follow simple commands, but requires rep eated instructions. Her cranial nerve examination showed no focal deficits. On motor examination, n o focal weakness in the upper and lower extremities. Sensation intact in the upper and lower extremi ties. Reflexes symmetric and intact. Coordination intact. She will be ambulated with physical damage appraiser apy, which was done earlier and she did have some stiffness and rigidity in the bilateral lower extre mities. She was able to voluntarily relax foot and leg. She did ambulate without an assistive devic e at least 20 feet with minimum assistance to contact guard assistance required. Assessment: Ms. Moon is a 74-year-old patient with encephalopathy of unclear etiology. She has n o evidence of stroke clinically or by CT scan and brain MRI. She has no evidence of a central nervou s system infection. She does not have nuchal rigidity, but does report some pain in back or neck act ually when trying to move or head or chin to chest, but she can move [id number] and lift her arms u p and back without any significant difficulty. Plan: 1.She should have a routine electroencephalogram. 2.Suggest lumbar puncture under fluoroscopy to rule out cerebrospinal fluid abnormalities including latent infections, such as for VDRL, also Tom levels and acid-fast bacillus along with protein, gluco se, cell count differential, and cytology. Also CSF electrophoresis and look for Lyme disease as wel l. 3.Aggressive management of diabetes mellitus and DVT prophylaxis with Lovenox. 4.The patient will be followed once studies are done. VIC Voice ID: [id number] Report ID: [id number]
[2020-08-09] MEDS: NA CHLORIDE 0.9% 1,000 ML IV SCH ×2 (03:54→17:14)
[2020-08-09 06:46] LABS: Absolute Lymphocytes (CBC) 1.6 K/uL (0.7-4.9); Basophils % 1.1 % (0-1.3); Hematocrit 37.7 % (36.0-45.0); Lymphocytes % 30.8 % (15.3-44.8); MPV 7.7 fL (7.6-11.3); RBC Red Blood Cell Count 4.24 M/uL (3.86-4.86)
[2020-08-09 06:48] LABS: BUN Blood Urea Nitrogen 7 mg/dL (7-18); Bicarbonate 28 mmol/L (21-32); Glucose Level 143 mg/dL (74-106); Potassium 3.9 mmol/L (3.5-5.1); Sodium Level 136 mmol/L (136-145)
[2020-08-09] MEDS: INSULIN -REGULAR HUMAN 50 UNIT/0.5 ML ML SQ SCH ×4 (07:30→20:36)
[2020-08-09] MEDS ORDERED: POTASSIUM CL SA 10 MEQ TAB PO ONE (09:00)
[2020-08-09] MEDS: ENOXAPARIN 40 MG/0.4 ML SQ SCH (09:12)
[2020-08-09] MEDS: METOPROLOL TAR 25 MG TAB PO SCH ×2 (09:13→20:32)
[2020-08-09] MEDS: METFORMIN HCL 500 MG TAB PO SCH ×2 (09:13→17:14)
[2020-08-09] MEDS: FLUOXETINE 10 MG CAP PO SCH (09:14)
[2020-08-09] MEDS ORDERED: LOPERAMIDE HCL 2 MG CAPSULE PO ONE (12:11)
[2020-08-09] MEDS ORDERED: ZOLPIDEM TARTRATE 5 MG TABLET PO SCH (21:00)
[2020-08-09 23:51] VITALS: O2SAT 96
[2020-08-10 05:01] LABS: BUN Blood Urea Nitrogen 8 mg/dL (7-18); Bicarbonate 31 mmol/L (21-32); Glucose Level 116 mg/dL (74-106); Potassium 4.2 mmol/L (3.5-5.1); Sodium Level 141 mmol/L (136-145)
[2020-08-10] MEDS: NA CHLORIDE 0.9% 1,000 ML IV SCH (06:12)
[2020-08-10] MEDS: INSULIN -REGULAR HUMAN 50 UNIT/0.5 ML ML SQ SCH ×2 (07:30→11:54)
[2020-08-10] MEDS: ENOXAPARIN 40 MG/0.4 ML SQ SCH (08:26)
[2020-08-10] MEDS: FLUOXETINE 10 MG CAP PO SCH (08:26)
[2020-08-10] MEDS: METFORMIN HCL 500 MG TAB PO SCH (08:26)
[2020-08-10] MEDS: METOPROLOL TAR 25 MG TAB PO SCH (08:26)
[2020-08-10 12:20] VITALS: BP 140/69; TEMP 97.2
--- NOTE | 2020-08-10 13:34 | P.PN ---
Subjective Date of Service: 08/08/20 PATIENT IS CONFUSED AND UNABLE TO ANSWER ANY OF MY QUESTIONS. SHE DOES NOD HER HEAD. SHE IS HAVING A HARD TIME FOLLOWING COMMANDS. SPOKE TO HER SON WHO STATES THAT SHE MAY HAVE ACCIDENTALLY TAKEN THE WRONG MEDICATION OR TAKEN AN EXTRA DOSE OF HER HOME MEDICATIONS. Review of Systems 10-point ROS is otherwise unremarkable Physical Examination - Vital Signs Temperature: 97.2 F Blood Pressure: 140/69 Pulse: 63 Respirations: 18 Pulse Ox (%): 97 - Physical Exam General: Alert, In no apparent distress, Oriented x3 Respiratory: Clear to auscultation bilaterally, Normal air movement Cardiovascular: Regular rate/rhythm, Normal S1 S2, No murmurs Gastrointestinal: Normal bowel sounds, Soft and benign, Non-distended, No tenderness Musculoskeletal: No clubbing, No swelling, No tenderness Neurological: Normal tone, Cranial nerves 3-12 intact, Abnormal speech, Abnormal strength, Abnormal affect - Studies Medications List Reviewed: Yes Assessment & Plan - Problems (Diagnosis) (1) Altered mental status Current Visit: Yes Status: Acute (2) Drug intoxication Current Visit: Yes Status: Acute (3) Stroke Current Visit: Yes Status: Acute - Plan 1. Physical therapy evaluation 2. Speech therapy evaluation 3. Anti-platelet therapy and statin therapy 4. Lipid profile in the morning 5. MRI of the brain/echocardiogram/carotid Doppler 6. Physically patient is doing well and may benefit more from outpatient physical therapy and inpatient rehab 7. Neurology consultation 8. Permissive hypertension and gradual blood pressure control 9. Neuro checks every 4 hr 10. GI and DVT prophylaxis Discharge Plan: Home Plan to discharge in: Greater than 2 days - Advance Directives Does patient have a Living Will: No Does patient have a Durable POA for Healthcare: No - Code Status/Comfort Care Code Status Assessed: Yes Code Status: Full Code Critical Care: No Time Spent Managing PTS Care (In Minutes): 35
--- NOTE | 2020-08-10 13:42 | P.PN ---
Subjective Date of Service: 08/09/20 PATIENT IS DOING A LITTLE BIT BETTER TODAY. SHE WORKED A LITTLE BIT PHYSICAL THERAPY. SHE IS STILL A LITTLE FORGETFUL. SHE STATES SHE IS DOING MUCH BETTER. HER SON SPOKE TO HER ON THE PHONE AND ALSO FELT SHE WAS BETTER. ANTICIPATE DISCHARGE HOME IN THE MORNING IF SHE CONTINUES TO IMPROVE. THIS MAY HAVE BEEN A MEDICATION ERROR SHE MADE AND WE HAVE SPOKEN TO HER AND HER SON ABOUT THIS. Review of Systems 10-point ROS is otherwise unremarkable Physical Examination - Vital Signs Temperature: 97.2 F Blood Pressure: 140/69 Pulse: 63 Respirations: 18 Pulse Ox (%): 97 - Physical Exam General: Alert, In no apparent distress, Oriented x3 Respiratory: Clear to auscultation bilaterally, Normal air movement Cardiovascular: Regular rate/rhythm, Normal S1 S2, No murmurs Gastrointestinal: Normal bowel sounds, Soft and benign, Non-distended, No tenderness Musculoskeletal: No clubbing, No swelling, No tenderness Neurological: Normal strength at 5/5 x4 extr, Normal tone, Sensation intact Lymphatics: No axilla or inguinal lymphadenopathy - Studies Medications List Reviewed: Yes Assessment & Plan - Problems (Diagnosis) (1) Altered mental status Current Visit: Yes Status: Acute (2) Drug intoxication Current Visit: Yes Status: Acute (3) Stroke Current Visit: Yes Status: Acute - Plan PLAN: 1. CONTINUE WITH IV HYDRATION 2. CONTINUE WITH PHYSICAL THERAPY 3. MRI OF THE BRAIN WAS NEGATIVE. NEUROLOGICALLY IMPROVED. ANTICIPATE DISCHARGE HOME IN THE MORNING. Discharge Plan: Home Plan to discharge in: 24 Hours - Advance Directives Does patient have a Living Will: No Does patient have a Durable POA for Healthcare: No - Code Status/Comfort Care Code Status: Full Code Critical Care: No Time Spent Managing PTS Care (In Minutes): 30
--- NOTE | 2020-08-10 13:48 | P.DS ---
Discharge Date: 08/10/20 Disposition: ROUTINE DISCHARGE Discharge Condition: GOOD Reason for Admission: Altered mental status Consultations: NEUROLOGY - Problems (1) Altered mental status Current Visit: Yes Status: Acute (2) Drug intoxication Current Visit: Yes Status: Acute (3) Stroke Current Visit: Yes Status: Acute Brief History of Present Illness: Patient is a 74-year-old female with past medical history of type 2 diabetes mellitus presents to the emergency room brought by EMS with complaints of altered mental status. Per EMS-family noted patient to be confused and not acting herself and approximately 1900 yesterday evening. In the emergency room. I spoke with the son who is in the room with the patient. Patient is unable to answer questions. Son states that the patient had been doing just fine and from yesterday at 7:00 p.m. through today patient is noted to be confused, not answering questions appropriately and not making sense when she answers questions. She has no neurologic deficits. Strength is 5/5 on all 4 extremities. Patient has no other medical history other than diabetes. In the ER her blood glucose is slightly elevated to 244 on admission. Patient is alert and in no distress. CT of the head was negative for acute pathology. Tsh and ammonia pending. Son states that patient has no history of smoking, alcohol abuse or illegal drug use. Patient will be admitted and further evaluated. Hospital Course: Patient did well during hospital stay. Her mentation improved and strength improved as well. Spoke with son and felt like she may have taken extra Ambien. Along with her [place] that may have made her altered. Her MRI of the brain was negative stroke workup was completely unremarkable. Neurology saw the patient as well. They recommend outpatient follow-up at this time. Patient is clinically stable for discharge. Vital Signs/Physical Exam: Temp Pulse Resp BP Pulse Ox 97.2 F 63 18 140/69 97 08/10/20 13:42 08/10/20 13:42 08/10/20 13:42 08/10/20 13:42 08/10/20 13:42 General: Alert, In no apparent distress, Oriented x3 Respiratory: Clear to auscultation bilaterally, Normal air movement Cardiovascular: Regular rate/rhythm, Normal S1 S2, No murmurs Gastrointestinal: Normal bowel sounds, Soft and benign, Non-distended, No tenderness Musculoskeletal: No clubbing, No swelling Laboratory Data at Discharge: WBC 5.2 K/uL (4.3-10.9) D 08/09/20 06:13 Hgb 12.5 g/dL (12.0-15.0) 08/09/20 06:13 Hct 37.7 % (36.0-45.0) 08/09/20 06:13 Plt Count 317 K/uL (152-406) 08/09/20 06:13 PT 11.7 SECONDS (9.5-12.5) 08/08/20 01:30 INR 0.99 08/08/20 01:30 APTT 28.3 SECONDS (24.3-36.9) 08/08/20 01:30 Sodium 141 mmol/L (136-145) 08/10/20 03:52 Potassium 4.2 mmol/L (3.5-5.1) 08/10/20 03:52 BUN 8 mg/dL (7-18) 08/10/20 03:52 Creatinine 0.54 mg/dL (0.55-1.3) L 08/10/20 03:52 Glucose 116 mg/dL (74-106) H 08/10/20 03:52 Magnesium 2.0 mg/dL (1.8-2.4) 08/09/20 06:13 Total Bilirubin 0.3 mg/dL (0.2-1.0) 08/08/20 01:30 AST 15 U/L (15-37) 08/08/20 01:30 ALT 21 U/L (12-78) 08/08/20 01:30 Alkaline Phosphatase 45 U/L (45-117) 08/08/20 01:30 Lipase 169 U/L (73-393) 08/08/20 01:30 Home Medications: Cyclosporine [Restasis] 1 drop EACH EYE TID 08/08/20 Diclofenac Sodium 1 appl TP TID 08/08/20 Fluoxetine HCl [Prozac] 30 mg PO DAILY 08/08/20 Hydrocodone/Acetaminophen [[place] 7.5-325 Tablet] 1 each PO TID 08/08/20 Insulin Degludec [Tresiba Flextouch U-100] 0 unit SQ SEECOM 08/08/20 Metformin HCl [Glucophage*] 2 tab PO BID 08/08/20 Metoprolol Tartrate 25 mg PO BID 08/08/20 Zolpidem Tartrate [Ambien] 5 mg PO BEDTIME 08/08/20 Patient Discharge Instructions: OK TO DC IV AND DC HOME. FOLLOW-UP WITH PRIMARY CARE PROVIDER IN 1-2 WEEKS. MONITOR MEDICATIONS CAREFULLY; MAKE SURE THERE ARE ADEQUATELY . FOLLOW-UP WITH NEUROLOGY IN 1-2 WEEKS. RETURN TO THE ER IF SYMPTOMS WORSEN. CALL or TEXT DR. PORTILLO AT [phone] IF ANY QUESTIONS REGARDING HOSPITAL STAY. PLEASE CALL THE FLOOR AT [phone] IF ANY MEDICATION OR NURSING QUESTIONS. Diet: ADA Activity: Fall precautions Time spent managing pt's care (in minutes): 35
== END 2020-08-10 13:55 | disposition home or self-care (01) | DRG 917 ==
LOC: ER 01:09 → ERHOLD 03:53 → 2ND 04:22
PROVIDERS: ADMIT Hospitalist; ATTEND Hospitalist
DX: T50.901A Poisoning by unspecified drugs, medicaments and biological substances, accidental (unintentional), initial encounter (principal); G92 Toxic encephalopathy; M54.9 Dorsalgia, unspecified; E11.65 Type 2 diabetes mellitus with hyperglycemia; Z60.2 Problems related to living alone; Z88.0 Allergy status to penicillin; Z20.828 Contact with and (suspected) exposure to other viral communicable diseases
CPT/HCPCS: 36415; 70450; 70551; 80048; 80076; 81003; 81015; 82140; 82550; 82553; 82947; 83690; 83735; 84443; 84484; 85025; 85610; 85730; 87045; 87046; 92523; 92610; 93005; 97112; 97116; 97161; 97530; 99285; J1650; J7030; U0003

== ENCOUNTER 2022-08-20 10:50 | Observation (INO) | payer OTHER ==
--- OUTSIDE RECORDS SUMMARY | 2022-08-20 10:54 | XMS REPORT | Continuity of Care Document ---
:1945 Author Organization [facility] t Address [address] [place] [address] Care Team Providers Name Role Phone Clarisse Zuñiga Attending Clinician Unavailable Problems This patient has no known problems. Allergies, Adverse Reactions, Alerts Allergy Allergy Status Severity Reaction(s) Onset Inactive Treating Comm ents Source Name Type Date Date Clinician PCN Adverse Active liver issues Com mon Reaction [facility] Benadryl Adverse Active heart race Com mon Reaction [facility] Zocor Adverse Active myalgia Common Reaction [facility] Lipitor Adverse Active myalgia Common Reaction [facility] Januvia Adverse Active joint pain Comm on Reaction [facility] Amoxicil Adverse Active Info Not Commo n luz maria Reaction Available [facility] Augmenti Adverse Active Info Not Commo n n Reaction Available [facility] Medications Ordered Filled Start Stop Current Ordering Indication Dosage Frequency Signature Comments Components Source Medication Medication Date Date Medication? Clinician (SIG) Name Name Prozac Prozac 2020-0 Yes Na Zuñiga 1 capsule C ommon - [facility] 00:00: - [facility] Zofran Zofran 2020-0 Yes Na Zuñiga 1 tablet Co mmon 05-29 [facility] 00:00: - [facility] Lancets Lancets 2018-0 Yes Na Zuñiga one Comm on Super Thin Super Thin -08 Spi rit 00:00: - [facility] Fluticasone Fluticasone Yes Na Zuñiga USE 2 Common Propionate Propionate SPRAYS IN [facility] EACH - [facility]I NOSTRIL [facility] EVERY DAY [facility] NovoFine NovoFine Yes Na Zuñiga as Comm on Plus Plus directed [facility] Torrance Torrance Yes Na Zuñiga 1 tablet Common as needed [facility] Metformin Metformin Yes Na Zuñiga TAKE 2 Common HCl HCl TABLETS BY [facility] MOUTH - [facility] EVERY EVENING Ciclopirox Ciclopirox Yes Na Zuñiga 1 Common applicatio [facility] n to - [facility] affected [facility] area [facility] True Metrix True Metrix Yes Na Zuñiga TEST FOUR Common Blood Blood TIMES [facility] Glucose Glucose DAILY - [facility] Test Test [facility] Pantoprazol Pantoprazol Yes Na Zuñiga TAKE 1 Common e Sodium e Sodium TABLET BY Sp garett MOUTH - [facility]I EVERY DAY [facility] Aspirin Aspirin Yes Na Zuñiga 1 tablet Co mmon Adult Adult [facility] Yes Na Zuñiga as Co mmon Lancets Lancets directed Spiri t Super Thin Super Thin - C HI [facility] Paroxetine Paroxetine Yes Na Zuñiga TAKE 1 Common HCl HCl TABLET BY Spirit MOUTH - [facility]I EVERY St NIGHT AT [facility] Metformin Metformin Yes Na Zuñiga 2 tablet Common HCl HCl [facility] Tresiba [facility] Yes Na Zuñiga 15 units Co mmon FlexTouch FlexTouch in pm Spir it titrate up - [facility] [address] [facility] days until Medical fbg less Center 100 (max of 20 units daily) Paroxetine Paroxetine Yes Na Zuñiga 1 tablet Common HCl HCl before [facility] bedtime - CHI [facility] Restasis Restasis Yes Na Zuñiga 1 drop Co mmon into [facility] affected - [facility] eye [facility] Metformin Metformin Yes Na Zuñiga TAKE 2 Common HCl HCl TABLETS BY [facility] MOUTH - [facility] EVERY EVENING Metoprolol Metoprolol Yes Na Zuñiga TAKE 1 Common Tartrate Tartrate TABLET BY Sp garett MOUTH - [facility]I TWICE St DAILY [facility] Pantoprazol Pantoprazol Yes Na Zuñiga TAKE 1 Common e Sodium e Sodium TABLET BY Sp garett MOUTH - [facility]I EVERY DAY [facility] NovoFine NovoFine Yes Na Zuñiga USE ONCE Common Plus Plus DAILY [facility] Procedures This patient has no known procedures. Encounters Start End Encounter Admission Attending Care Care Encounter Source Date/Time Date/Time Type Type Clinicians Facility Department ID 2022-06-14 Outpatient Zuñiga, Na STLMLC STLMLC [id number] Common 08:09:00 [facility] 2021-12-26 Outpatient Zuñiga, Na STLMLC STLMLC [id number] 2 Common 14:36:36 [facility] 2021-12-26 Outpatient Zuñiga, Na STLMLC STLMLC [id number] 2 Common 14:23:12 [id number] [facility] 2021-12-26 Outpatient Zuñiga, Na STLMLC STLMLC [id number] 2 Common 14:15:12 [id number] [facility] 2021-12-26 Outpatient Zuñiga, Na STLMLC STLMLC [id number] 2 Common 14:01:49 [id number] [facility] 2021-12-26 Outpatient Zuñiga, Na STLMLC STLMLC [id number] 2 Common 12:28:35 [id number] [facility] 2021-12-26 Outpatient Zuñiga, Na STLMLC STLMLC [id number] 2 Common 12:03:17 [id number] [facility] 2021-12-26 Outpatient Zuñiga, Na STLMLC STLMLC [id number] 2 Common 12:02:44 [id number] [facility] 2021-12-26 Outpatient Zuñiga, Na STLMLC STLMLC [id number] 2 Common 11:56:03 [id number] [facility] 2021-12-26 Outpatient Zuñiga, Na STLMLC STLMLC [id number] 2 Common 11:55:38 [id number] [facility] 2021-12-26 Outpatient Zuñiga, Na STLMLC STLMLC [id number] 2 Common 11:54:00 [id number] [facility] 2021-12-26 Outpatient Zuñiga, Na STLMLC STLMLC [id number] 2 Common 11:44:59 [id number] [facility] 2021-12-26 Outpatient Zuñiga, Na STLMLC STLMLC [id number] 2 Common 11:33:06 [id number] [facility] 2021-12-26 Outpatient Zuñiga, Na STLMLC STLMLC [id number] 2 Common 11:28:40 [id number] [facility] 2021-12-26 Outpatient Zuñiga, Na STLMLC STLMLC [id number] 2 Common 11:28:21 [id number] [facility] 2021-12-26 Outpatient Zuñiga, Na STLMLC STLMLC [id number] 2 Common 11:19:46 [id number] [facility] 2021-12-26 Outpatient Zuñiga, Na STLMLC STLMLC [id number] 2 Common 11:19:36 [id number] [facility] 2021-12-26 Outpatient Zuñiga, Na STLMLC STLMLC [id number] 2 Common 11:19:24 [id number] [facility] 2021-12-26 Outpatient Zuñiga, Na STLMLC STLMLC [id number] 2 Common 11:18:10 [id number] [facility] 2021-12-26 Outpatient Zuñiga, Na STLMLC STLMLC [id number] 2 Common 11:07:41 [id number] [facility] 2022-07-29 2022-07-29 ambulatory STLMLC STLMLC [id number] Common 00:00:00 00:00:00 [facility] 2022-07-20 2022-07-20 ambulatory STLMLC STLMLC [id number] Common 00:00:00 00:00:00 [facility] 2022-07-04 2022-07-04 ambulatory STLMLC STLMLC [id number] Common 00:00:00 00:00:00 [facility] 2022-06-25 2022-06-25 ambulatory STLMLC STLMLC [id number] Common 00:00:00 00:00:00 [facility] 2022-06-25 2022-06-25 ambulatory STLMLC STLMLC [id number] Common 00:00:00 00:00:00 [facility] 2022-06-24 2022-06-24 ambulatory STLMLC STLMLC [id number] Common 00:00:00 00:00:00 [facility] 2022-06-18 2022-06-18 ambulatory STLMLC STLMLC [id number] Common 00:00:00 00:00:00 [facility] 2022-05-27 2022-05-27 ambulatory STLMLC STLMLC [id number] Common 00:00:00 00:00:00 [facility] 2022-03-11 2022-03-11 ambulatory STLMLC STLMLC [id number] Common 00:00:00 00:00:00 [facility] 2021-12-10 2021-12-10 ambulatory STLMLC STLMLC [id number] Common 00:00:00 00:00:00 [facility] 2021-12-05 2021-12-05 ambulatory STLMLC STLMLC [id number] Common 00:00:00 00:00:00 [facility] 2021-11-19 2021-11-19 ambulatory STLMLC STLMLC [id number] Common 00:00:00 00:00:00 [facility] 2021-11-13 2021-11-13 ambulatory STLMLC STLMLC [id number] Common 00:00:00 00:00:00 [facility] 2021-10-19 2021-10-19 ambulatory STLMLC STLMLC [id number] Common 00:00:00 00:00:00 [facility] 2021-10-19 2021-10-19 ambulatory STLMLC STLMLC [id number] Common 00:00:00 00:00:00 [facility] 2021-10-19 2021-10-19 ambulatory STLMLC STLMLC [id number] Common 00:00:00 00:00:00 [facility] 2021-10-09 2021-10-09 ambulatory STLMLC STLMLC [id number] Common 00:00:00 00:00:00 [facility] 2021-09-04 2021-09-04 Outpatient STLMLC STL[facility]C [id number] Common 00:00:00 00:00:00 [facility] 2021-07-19 2021-07-19 Outpatient STLMLC STLMLC [id number] Common 00:00:00 00:00:00 [facility] 2021-07-12 2021-07-12 Outpatient [facility]MLC STL[facility]C [id number] Common 00:00:00 00:00:00 [facility] 2021-05-22 2021-05-22 Outpatient [facility]C ST[facility]C [id number] Common 00:00:00 00:00:00 [facility] 2021-04-18 2021-04-18 Outpatient STLMLC STL[facility]C [id number] Common 00:00:00 00:00:00 [facility] 2021-04-03 2021-04-03 Outpatient STLMLC STLMLC [id number] Common 00:00:00 00:00:00 [facility] 2021-01-08 2021-01-08 Outpatient STLMLC STLMLC [id number] Common 00:00:00 00:00:00 [facility] 2020-11-17 2020-11-17 Outpatient [facility]C ST[facility]C [id number] Common 00:00:00 00:00:00 [facility] 2020-10-12 2020-10-12 Outpatient [facility]MLC STL[facility]C [id number] Common 00:00:00 00:00:00 [facility] 2020-10-10 2020-10-10 Outpatient STLMLC STLMLC [id number] Common 00:00:00 00:00:00 [facility] 2020-09-18 2020-09-18 Outpatient STLMLC STL[facility]C [id number] Common 00:00:00 00:00:00 [facility] 2020-08-28 2020-08-28 Outpatient STLMLC STLMLC [id number] Common 00:00:00 00:00:00 [facility] 2020-08-11 2020-08-11 [id number] Common 11:20:00 11:20:[address] [facility] 2020-07-17 2020-07-17 [facility] [id number] Common 16:08:00 16:08:[address] [facility] 2020-06-28 2020-06-28 [facility] [id number] Common 08:20:00 08:20:[address] [facility] 2020-05-29 2020-05-29 [facility] [id number] Common 08:20:00 08:20:[address] [facility] 2020-05-26 2020-05-26 [facility] [id number] Common 08:19:00 08:19:[address] [facility] 2020-03-29 2020-03-29 [facility] [id number] Common 09:20:00 09:20:[address] [facility] 2020-03-15 2020-03-15 [facility] [id number] Common 09:20:00 09:20:[address] [facility] 2019-12-28 2019-12-28 [facility] [id number] Common 14:40:00 14:40:[address] [facility] 2019-12-03 2019-12-03 [facility] [id number] Common 09:02:00 09:02:[address] [facility] 2019-11-05 2019-11-05 [facility] [id number] Common 10:40:00 10:40:[address] [facility] 2019-09-22 2019-09-22 [facility] [id number] Common 09:45:00 09:45:[address] [facility] 2019-08-06 2019-08-06 [facility] [id number] Common 13:20:00 13:20:[address] [facility] 2019-07-28 2019-07-28 [facility] [id number] Common 09:12:00 09:12:[address] [facility] 2019-07-05 2019-07-05 [facility] [id number] Common 09:57:00 09:57:[address] [facility] 2019-05-31 2019-05-31 [facility] [id number] Common 16:25:00 16:25:[address] [facility] 2019-01-12 2019-01-12 [facility] [id number] Common 09:29:00 09:29:[address] [facility] 2019-01-11 2019-01-11 [facility] [id number] Common 09:30:00 09:30:[address] [facility] 2018-12-04 2018-12-04 [facility] [id number] Common 11:01:00 11:01:[address] [facility] 2018-12-03 2018-12-03 [facility] [id number] Common 16:11:00 16:11:[address] [facility] 2018-11-23 2018-11-23 [facility] [id number] Common 09:06:00 09:06:[address] [facility] 2018-11-10 2018-11-10 [facility] [id number] Common 10:15:00 10:15:[address] [facility] 2018-08-25 2018-08-25 [facility] [id number] Common 10:26:00 10:26:[address] [facility] 2018-08-04 2018-08-04 [facility] [id number] Common 10:15:00 10:15:[address] [facility] 2018-06-24 2018-06-24 [facility] [id number] Common 10:15:00 10:15:[address] [facility] 2018-05-04 2018-05-04 [facility] [id number] Common 10:00:00 10:00:[address] [facility] 2018-04-22 2018-04-22 [facility] [id number] Common 17:08:00 17:08:[address] [facility] 2018-04-07 2018-04-07 [facility] [id number] Common 15:11:00 15:11:[address] [facility] 2018-04-06 2018-04-06 [facility] [id number] Common 09:00:00 09:00:[address] [facility] 2018-03-23 2018-03-23 [facility] [id number] Common 14:47:00 14:47:[address] [facility] 2018-03-23 2018-03-23 [facility] [id number] Common 11:53:00 11:53:[address] [facility] 2018-03-18 2018-03-18 [facility] [id number] Common 08:45:00 08:45:[address] [facility] Results This patient has no known results.
[2022-08-20 12:20] LABS: Hematocrit 34.8 % (36.0-45.0); Lymphocytes % 9.9 % (15.3-44.8); MPV 8.1 fL (7.6-11.3); RBC Red Blood Cell Count 3.87 M/uL (3.86-4.86)
--- NOTE | 2022-08-20 12:22 | RAD REPORT ---
EXAM DESCRIPTION: CT - [id number] - 08/20/2022 12:00 pm CLINICAL HISTORY: fall COMPARISON: <Comparisons> TECHNIQUE: Axial 5 mm thick images of the head were obtained. Axial 2 mm thick images of the cervic al spine were obtained with sagittal and coronal reconstruction images generated and reviewed. All CT scans are performed using dose optimization technique as appropriate and may include automated exposure control or mA/KV adjustment according to patient size. FINDINGS: No intracranial hemorrhage, mass, edema or acute intracranial finding. No suspicion for ac squaxin infarction. No extra-axial fluid collections. Mastoid air cells and paranasal sinuses are clear. No globe or orbit abnormality seen. Atrophy and chronic ischemic changes are minimal. Ventricles are in proportion to any volume loss. Cervical bodies are normal in height. There is very slight retrolisthesis of C6 on C7. The C6-7 disc space is narrowed with posterior endplate spurring seen. C4-5 disc space narrowing and endplate spurr ing changes are also present. Mild bony foraminal encroachment changes are present without significan t narrowing. No fracture or acute bony abnormality. Central canal detail is inherently limited. No paraspinal mass or hematoma. IMPRESSION: Negative CT head examination for acute or significant finding. Negative CT cervical spine examination for acute or significant finding.
--- NOTE | 2022-08-20 12:40 | RAD REPORT ---
EXAM DESCRIPTION: RAD - Chest Single View - 08/20/2022 12:09 pm CLINICAL HISTORY: RIB PAIN - RIGHT COMPARISON: Rib films same date TECHNIQUE: AP portable chest image was obtained 08/20/2022 12:09 pm . FINDINGS: Lungs are clear. Heart and vasculature are normal. No measurable pleural effusion and no p neumothorax. Multiple rib fractures are present on the right detailed on separate dedicated rib film exam. No acute aortic findings suspected. IMPRESSION: Multiple rib fractures further detailed on separate rib examination. No pneumothorax or pulmonary contusion.
[2022-08-20] MEDS ORDERED: HYDROMORPHONE HCL 1 MG/ML INJ ONE (12:42)
--- NOTE | 2022-08-20 12:44 | RAD REPORT ---
EXAM DESCRIPTION: Ribs Right - 08/20/2022 12:10 pm CLINICAL HISTORY: BLUNT CHEST TRAUMA COMPARISON: Chest Single View dated 08/20/2022 FINDINGS: The patient has 11 sets of paired ribs is a normal anatomic variant. Posterolateral right- sided rib fractures are present involving the 6th-10th ribs no significant displacement at the fractu re sites. No pathologic changes. Of these fractures are linear air deranged very typical for trauma e tiology. No aggressive rib lesion. No underlying pneumothorax, effusion, infiltrate or pulmonary contusion. IMPRESSION: Posterolateral right 6th-10th rib fractures with no significant displacement. No pneumothorax, pulmonary contusion or hemothorax.
[2022-08-20 13:14] LABS: Albumin 3.6 g/dL (3.4-5.0); Bilirubin Total 0.5 mg/dL (0.2-1.0); Ferritin 15.1 ng/mL (8-388); Potassium 4.3 mmol/L (3.5-5.1); Protein, Total 7.2 g/dL (6.4-8.2); Thyroid Stimulating Hormone 1.5 uIU/mL (0.360-3.740)
--- NOTE | 2022-08-20 13:37 | EDPHYS ---
Physician Documentation [facility] Name: Cora Moon Age: 76 yrs Sex: Female : 1945 Arrival Date: 08/20/2022 Time: 10:52 Bed 27 Private MD: Clarisse Zuñiga ED Physician Lesa Collier HPI: 08/20 11:36 This 76 yrs old Female presents to ER via Wheelchair with complaints of Fall Injury. snw 11:36 Details of fall: The patient fell from an upright position, while standing. Onset: The snw symptoms/episode began/occurred suddenly, this morning. Associated injuries: The patient sustained upper back injury, abrasion, decreased range of motion, pain, pain with movement. Severity of symptoms: At their worst the symptoms were mild, in the emergency department the symptoms are unchanged. It is unknown whether or not the patient has had similar symptoms in the past. The patient has not recently seen a physician, the patient's primary care provider is Dr. Dr. Zuñiga. Historical: - Allergies: 11:14 PENICILLINS; jh5 - PMHx: 11:14 Diabetes - NIDDM; [facility] 11:14 Hypertensive disorder; 5 - Immunization history:: Adult Immunizations up to date. - Social history:: Smoking status: Patient denies any tobacco usage or history of. - Immunization history: Last tetanus immunization: unknown. ROS: 11:32 Constitutional: Negative for fever, chills, and weight loss, Eyes: Negative for injury, snw pain, redness, and discharge, ENT: Negative for injury, pain, and discharge, Neck: Negative for injury, pain, and swelling, Cardiovascular: Negative for chest pain, palpitations, and edema, Respiratory: Negative for shortness of breath, cough, wheezing, and pleuritic chest pain, Abdomen/GI: Negative for abdominal pain, nausea, vomiting, diarrhea, and constipation, : Negative for injury, bleeding, discharge, and swelling, MS/Extremity: Negative for injury and deformity, Skin: Negative for injury, rash, and discoloration, Neuro: Negative for headache, weakness, numbness, tingling, and seizure, Psych: Negative for depression, anxiety, suicide ideation, homicidal ideation, and hallucinations. 11:32 Back: Positive for injury or acute deformity, pain with movement, of the right subscapular area and right mid back. Exam: 11:30 Head/Face: Normocephalic, atraumatic. Eyes: Pupils equal round and reactive to light, snw extra-ocular motions intact. Lids and lashes normal. Conjunctiva and sclera are non-icteric and not injected. Cornea within normal limits. Periorbital areas with no swelling, redness, or edema. ENT: Nares patent. No nasal discharge, no septal abnormalities noted. Tympanic membranes are normal and external auditory canals are clear. Oropharynx with no redness, swelling, or masses, exudates, or evidence of obstruction, uvula midline. Mucous membranes moist. Neck: Trachea midline, no thyromegaly or masses palpated, and no cervical lymphadenopathy. Supple, full range of motion without nuchal rigidity, or vertebral point tenderness. No Meningismus. Cardiovascular: Regular rate and rhythm with a normal S1 and S2. No gallops, murmurs, or rubs. Normal PMI, no JVD. No pulse deficits. Respiratory: Lungs have equal breath sounds bilaterally, clear to auscultation and percussion. No rales, rhonchi or wheezes noted. No increased work of breathing, no retractions or nasal flaring. Abdomen/GI: Soft, non-tender, with normal bowel sounds. No distension or tympany. No guarding or rebound. No evidence of tenderness throughout. MS/ Extremity: Pulses equal, no cyanosis. Neurovascular intact. Full, normal range of motion. Neuro: Awake and alert, GCS 15, oriented to person, place, time, and situation. Cranial nerves II-XII grossly intact. Motor strength 5/5 in all extremities. Sensory grossly intact. Cerebellar exam normal. Normal gait. 11:30 Constitutional: The patient appears alert, awake, frail, pale, tremorous 11:30 Chest/axilla: Inspection: abrasion, that is moderate, of the right lateral posterior chest Palpation: tenderness, that is moderate, of the right lateral posterior chest, Axilla: are normal. 11:30 Skin: injury, abrasion(s), moderate sized abrasion noted, of the right mid back. 11:30 Psych: Recent memory is impaired. Vital Signs: 11:25 BP 135 / 76; Pulse 80; Resp 16; Temp 97.6; Pulse Ox 99% ; Weight 48.99 kg; Height 5 ft. jh5 4 in. (162.56 cm); Pain 6/10; 12:20 BP 149 / 69; Pulse 81; Resp 15; Pulse Ox 100% ; jl7 13:04 BP 146 / 76; Pulse 82; Resp 15; Pulse Ox 93% on R/A; jl7 14:00 BP 153 / 82; Pulse 86; Resp 15; Pulse Ox 93% on R/A; jl7 14:45 BP 147 / 82; Pulse 85; Resp 19; Pulse Ox 93% ; jl7 15:30 BP 141 / 71; Pulse 81; Resp 17; Pulse Ox 94% ; jl7 20:00 BP 107 / 45; Pulse 83; Resp 16 S; Pulse Ox 92% on R/A; Pain 0/10; aa9 11:25 Body Mass Index 18.54 (48.99 kg, 162.56 cm) jh5 Ilana Coma Score: 12:20 Eye Response: spontaneous(4). Verbal Response: oriented(5). Motor Response: obeys jl7 commands(6). Total: 15. 13:04 Eye Response: spontaneous(4). Verbal Response: oriented(5). Motor Response: obeys jl7 commands(6). Total: 15. 14:00 Eye Response: spontaneous(4). Verbal Response: oriented(5). Motor Response: obeys jl7 commands(6). Total: 15. 14:45 Eye Response: spontaneous(4). Verbal Response: oriented(5). Motor Response: obeys jl7 commands(6). Total: 15. 15:30 Eye Response: spontaneous(4). Verbal Response: oriented(5). Motor Response: obeys jl7 commands(6). Total: 15. Trauma Score (Adult): 12:20 Eye Response: spontaneous(1); Verbal Response: oriented(1); Motor Response: obeys jl7 commands(2); Systolic BP: > 89 mm Hg(4); Respiratory Rate: 10 to 29 per min(4); Ilana Score: 15; Trauma Score: 12 MDM: 11:10 Patient medically screened. snw 13:00 Data reviewed: vital signs, nurses notes. Data interpreted: Pulse oximetry: on room air snw is 93 %. Interpretation: acceptable. Counseling: I had a detailed discussion with the patient and/or guardian regarding: the historical points, exam findings, and any diagnostic results supporting the discharge/admit diagnosis, the presence of at least one elevated blood pressure reading (>120/80) during this emergency department visit, lab results, radiology results, the need for further work-up and treatment in the hospital. Physician consultation: Hermilo Moss was called at 13:14, was contacted at 13:15, regarding consult. 13:00 Physician consultation: Jun Hernandez MD was called at 13:00, was contacted at 13:00, snw regarding admission, to the medical/surgical unit. would like consultation with Dr. Nelson. 08/20 11:35 Order name: CBC with Diff; Complete Time: 12:25 snw 08/20 11:35 Order name: TS; Complete Time: 14:12 snw 08/20 11:35 Order name: TSH; Complete Time: 13:15 snw 08/20 11:35 Order name: Ferritin; Complete Time: 13:15 snw 08/20 11:35 Order name: CMP; Complete Time: 13:15 snw 08/20 13:44 Order name: Basic Metabolic Panel EDAZ 08/20 13:44 Order name: Basic Metabolic Panel; Complete Time: 12:22 EDMS 08/20 13:44 Order name: CBC with Automated Diff EDAZ 08/20 13:44 Order name: CBC with Automated Diff; Complete Time: 12:22 EDMS 08/20 13:52 Order name: SARS-COV-2 Antigen Rapid; Complete Time: 14:24 bd 08/20 16:29 Order name: Glucose, Ancillary Testing; Complete Time: 16:30 EDMS 08/20 22:30 Order name: Glucose, Ancillary Testing; Complete Time: 12:22 EDMS 08/21 01:25 Order name: Glucose, Ancillary Testing; Complete Time: 12:22 EDMS 08/21 08:27 Order name: Glucose, Ancillary Testing; Complete Time: 12:22 EDMS 08/20 11:35 Order name: CT Head C Spine; Complete Time: 12:25 snw 08/20 11:35 Order name: Chest Single View XRAY; Complete Time: 12:56 snw 08/20 11:35 Order name: Ribs Right XRAY; Complete Time: 12:56 snw 08/20 11:35 Order name: SL; Complete Time: 12:01 snw 08/20 12:14 Order name: Labs - recollect needed; Complete Time: 12:28 ss 08/20 13:44 Order name: CONS Physician Consult EDMS 08/20 13:44 Order name: Regular EDMS 08/20 13:44 Order name: EKG Electrocardiogram EDMS 08/20 13:44 Order name: EKG Electrocardiogram EDMS 08/20 13:44 Order name: EKG Electrocardiogram EDMS 08/20 13:44 Order name: EKG Electrocardiogram EDMS 08/21 12:00 Order name: Glucose, Ancillary Testing; Complete Time: 12:22 EDMS 08/21 16:33 Order name: Glucose, Ancillary Testing; Complete Time: 12:22 EDMS Administered Medications: 12:33 Drug: Dilaudid (HYDROmorphone) 1 mg Route: IM; Site: left deltoid; 6 13:00 Follow up: Response: No adverse reaction; Pain is decreased jl7 Disposition Summary: 08/20/22 13:37 Hospitalization Ordered Hospitalization Status: Observation snw Provider: Jun Hernandez snw Condition: Stable snw Problem: new snw Symptoms: are unchanged snw Bed/Room Type: Standard snw Location: Telemetry/MedSurg (observation)(08/21/22 17:08) Room Assignment: [facility](08/21/22 17:08) Diagnosis - Fall on same level from slipping, tripping and stumbling with subsequent striking snw against object - Multiple fractures of ribs, right side snw Forms: - Medication Reconciliation Form snw - SBAR form snw Addendum: 08/24/2022 19:32 STAFF ATTESTATION: The patient's history, exam findings, diagnostics and a summary of s d2 any interventions or procedures was reviewed in detail with the ED CHAD. I confirm the diagnosis as documented by the CHAD and I agree with the care plan articulated in the disposition section with regards to our discussion of the patient's case. Lesa Collier MD. Signatures: Dispatcher [employer] [facility] Rima Gonzalez RN Charito Gaviria, ELIZABETH-C BILLBOARD ERECTOR-Kenw Viktoriya Lutz RN RN ss Leal, Jahala, RN RN jl7 Mechelle Cope RN RN 5 Karely Vanessa RN RN jh6 Lesa Collier MD MD sd2 Corrections: (The following items were deleted from the chart) 08/20 13:36 13:00 Physician consultation: Hermilo Moss was called at 13:14, was contacted at [facility] 13:15, regarding admission, to the medical/surgical unit. consult, would like consultation with Dr. Nelson, [facility] 17: 13:37 Telemetry/MedSurg (observation) [place] [id number] 17: 13:37 [place] [id number] 08/21 17:08 08/20 17:01 [facility] ER HOLD jl7 dw 08/21 17:08 08/20 [facility]
--- NOTE | 2022-08-20 13:37 | ER ---
Nurse's Notes [facility] Name: Cora Moon Age: 76 yrs Sex: Female : 1945 Arrival Date: 08/20/2022 Time: 10:52 Bed 27 Private MD: Clarisse Zuñiga Diagnosis: Fall on same level from slipping, tripping and stumbling with subsequent striking against object;Multiple fractures of ribs, right side Presentation: 08/20 11:12 Chief complaint: Patient states: yesterday pt stood up from up chair, turned and fell jh5 back into tv stand. Pt did not hit head at all, did not lose consciousness, has no vomited. Coronavirus screen: Vaccine status: Patient reports receiving the 2nd dose of the covid vaccine. Client denies travel out of the [place] in the last 14 days. Ebola Screen: Patient negative for fever greater than or equal to 101.5 degrees Fahrenheit, and additional compatible Ebola Virus Disease symptoms Patient denies exposure to infectious person. Patient denies travel to an Ebola-affected area in the 21 days before illness onset. Initial Sepsis Screen: Does the patient meet any 2 criteria? No. Patient's initial sepsis screen is negative. Does the patient have a suspected source of infection? No. Patient's initial sepsis screen is negative. Risk Assessment: Do you want to hurt yourself or someone else? Patient reports no desire to harm self or others. Onset of symptoms was August 20, 2022. 11:12 Method Of Arrival: Wheelchair jh5 11:12 Acuity: DERRICK 2 jh5 12:00 Care prior to arrival: None. Mechanism of Injury: Fall from standing position. Trauma jl7 event details: Injury occurred in the [facility], Injury occurred: at home. Injury occurred: August 20, 2022 Injury occurred at: 07:30. Triage Assessment: 11:14 General: Appears in no apparent distress. slender, well groomed, well developed, jh5 Behavior is calm, cooperative, appropriate for age. Trauma Activation: Not Applicable Physician: ED Physician; Name: ; Notified At: ; Arrived At: Physician: General Surgeon; Name: ; Notified At: ; Arrived At: Physician: Radiology; Name: ; Notified At: ; Arrived At: Physician: Respiratory; Name: ; Notified At: ; Arrived At: Physician: Lab; Name: ; Notified At: ; Arrived At: Historical: - Allergies: 11:14 PENICILLINS; 5 - PMHx: 11:14 Diabetes - NIDDM; [facility] 11:14 Hypertensive disorder; 5 - Immunization history:: Adult Immunizations up to date. - Social history:: Smoking status: Patient denies any tobacco usage or history of. - Immunization history: Last tetanus immunization: unknown. Screenin:15 Abuse screen: Denies threats or abuse. Nutritional screening: No deficits noted. [facility] Tuberculosis screening: No symptoms or risk factors identified. Fall Risk Fall in past 12 months (25 points). IV access (20 points). Primary Survey: 12:20 NO uncontrolled hemorrhage observed. A: The client is awake and alert. The airway is jl7 patent. The client is alert. Breathing/Chest: Spontaneous respiratory effort, equal unlabored respirations, breath sounds clear bilaterally, regular pattern, symmetrical chest rise and fall. Circulation: No external hemorrhage present. Regular and strong central pulse, skin warm/dry/normal color. Skin color: pink, Skin temperature: warm. Disability Client is alert. Exposure/Environment: All clothing and personal items were removed. Forensic evidence collection is not deemed to be indicated at this time. Items placed in patient belonging bag. There is no evidence of uncontrolled external bleeding. No obvious injuries are noted at this time. A warming method has been applied: A warm blanket has been provided to the patient. 13:00 Reassessment Breathing: Spontaneous respiratory effort, equal unlabored respirations, jl7 breath sounds clear bilaterally, regular pattern with symmetrical chest rise and fall. Assessment: 12:16 General: pt placed in room 8 at this time from [facility]. . [facility] 12:20 General: Appears in no apparent distress. uncomfortable, Behavior is calm, cooperative, jl7 appropriate for age. Pain: Complains of pain in right subscapular area and right lateral posterior chest. Neuro: Level of Consciousness is awake, alert, obeys commands, Oriented to person, place. Cardiovascular: Patient's skin is warm and dry. Respiratory: Airway is patent Respiratory effort is even, unlabored, Respiratory pattern is regular, symmetrical. Derm: Skin is pink, warm \T\ dry. Musculoskeletal: Reports pain in right subscapular area and right lateral posterior chest and back and right mid back. 19:25 Pain: Denies pain. Respiratory: Airway is patent Respiratory effort is even, unlabored. aa9 20:05 General: Appears in no apparent distress. uncomfortable, Behavior is cooperative, aa9 appropriate for age. Vital Signs: 11:25 BP 135 / 76; Pulse 80; Resp 16; Temp 97.6; Pulse Ox 99% ; Weight 48.99 kg; Height 5 ft. jh5 4 in. (162.56 cm); Pain 6/10; 12:20 BP 149 / 69; Pulse 81; Resp 15; Pulse Ox 100% ; jl7 13:04 BP 146 / 76; Pulse 82; Resp 15; Pulse Ox 93% on R/A; jl7 14:00 BP 153 / 82; Pulse 86; Resp 15; Pulse Ox 93% on R/A; jl7 14:45 BP 147 / 82; Pulse 85; Resp 19; Pulse Ox 93% ; jl7 15:30 BP 141 / 71; Pulse 81; Resp 17; Pulse Ox 94% ; jl7 20:00 BP 107 / 45; Pulse 83; Resp 16 S; Pulse Ox 92% on R/A; Pain 0/10; aa9 11:25 Body Mass Index 18.54 (48.99 kg, 162.56 cm) jh5 Ilana Coma Score: 12:20 Eye Response: spontaneous(4). Verbal Response: oriented(5). Motor Response: obeys jl7 commands(6). Total: 15. 13:04 Eye Response: spontaneous(4). Verbal Response: oriented(5). Motor Response: obeys jl7 commands(6). Total: 15. 14:00 Eye Response: spontaneous(4). Verbal Response: oriented(5). Motor Response: obeys jl7 commands(6). Total: 15. 14:45 Eye Response: spontaneous(4). Verbal Response: oriented(5). Motor Response: obeys jl7 commands(6). Total: 15. 15:30 Eye Response: spontaneous(4). Verbal Response: oriented(5). Motor Response: obeys jl7 commands(6). Total: 15. Trauma Score (Adult): 12:20 Eye Response: spontaneous(1); Verbal Response: oriented(1); Motor Response: obeys jl7 commands(2); Systolic BP: > 89 mm Hg(4); Respiratory Rate: 10 to 29 per min(4); Spalding Score: 15; Trauma Score: 12 ED Course: 10:52 Patient arrived in ED. rg4 10:52 Clarisse Zuñiga MD is Private Physician. rg4 11:06 Charito Cerda FNP-C is PHCP. snw 11:06 Lesa Collier MD is Attending Physician. snw 11:08 Charito Cerda FNP-C is PHCP. snw 11:14 Triage completed. jh5 11:14 Arm band placed on right wrist. jh5 12:01 Ferritin Sent. jh5 12:01 CMP Sent. jh5 12:01 TSH Sent. jh5 12:01 TS Sent. jh5 12:01 CBC with Diff Sent. jh5 12:02 CT Head C Spine In Process Unspecified. EDMS 12:12 Chest Single View XRAY In Process Unspecified. EDMS 12:12 Ribs Right XRAY In Process Unspecified. EDMS 12:15 Karlos Dean RN is Primary Nurse. jl7 12:15 Patient moved back from CT. Patient moved back from radiology. jh6 12:20 Patient has correct armband on for positive identification. Placed in gown. Bed in low jl7 position. Call light in reach. Side rails up X2. 12:20 Patient maintains SpO2 saturation greater than 95% on room air. Thermoregulation: warm jl7 blanket given to patient. 12:20 Lab(s) recollected, by me, sent to lab. jl7 13:06 Karlos Dean RN is Primary Nurse. jl7 13:36 Jun Hernandez MD is Hospitalizing Provider. snw 16:00 No provider procedures requiring assistance completed. Patient admitted, IV remains in jl7 place. intact, No redness/swelling at site. 21:49 Primary Nurse role handed off by Karlos Dean RN wm Administered Medications: 12:33 Drug: Dilaudid (HYDROmorphone) 1 mg Route: IM; Site: left deltoid; jh6 13:00 Follow up: Response: No adverse reaction; Pain is decreased jl7 Medication: 18:30 VIS not applicable for this client. jl7 Intake: 15:00 PO: 0ml; IV: 0ml; Tubes: 0ml (); Total: 0ml. jl7 Output: 15:00 Urine: 0ml; Gastric: 0ml; Stool: 0; EBL: 0ml; Drainage: 0ml; Other: 0; Total: 0ml. [facility] Outcome: 13:37 Decision to Hospitalize by Provider. snw 16:00 Admitted to ER Hold. Please see [facility] for further documentation. 7 16:00 Condition: stable 16:00 Discharge instructions given to patient, family, Instructed on the need for admit, Demonstrated understanding of instructions. 16:00 Patient's length of stay was not longer than 2 hours. [facility] 08/21 18:34 Patient left the ED. aa5 Signatures: Dispatcher [employer] EDMS Charito Cerda, WRAPPER SHEETER-C WRAPPER SHEETER-Csnw Felipa Pérez, RN RN aa5 Sandhya Bishop4 Karlos Dean RN RN jl7 Lidia Anguiano Jessica RN RN jh5 Karely Vanessa RN RN jh6 Lindsay Fitzpatrick, RN RN aa9 Corrections: (The following items were deleted from the chart) 09 12:31 11:12 Chief complaint: Patient states: stood up from up chair, turned and fell back [facility] into tv stand. Pt did not hit head at all, did not lose consciousness, has no vomited. [facility] 18:28 12:20 Neuro: Level of Consciousness is awake, alert, obeys commands, Oriented to [facility] person, place, time, situation, [facility] 20:51 19:25 BP 141 / 73; Pulse 80bpm; Resp 16bpm; Spontaneous; Pulse Ox 93% RA; Pain 0/10; [id number]
[2022-08-20] MEDS ORDERED: GLUCAGON 1 MG/VIAL IM PRN (13:39)
[2022-08-20] MEDS ORDERED: DEXTROSE 10%-WATER 500 ML IV BAG IV PRN (13:56)
[2022-08-20 14:22] LABS: SARS-CoV-2 Antigen Rapid Res Negative (Negative)
[2022-08-20] MEDS: INSULIN -REGULAR HUMAN 50 UNIT/0.5 ML ML SQ SCH ×2 (16:21→21:00)
[2022-08-20] MEDS: HYDROCODONE/APAP 5/325 MG TAB PO PRN ×2 (16:49→23:16)
[2022-08-20] MEDS ORDERED: HYDROCODONE/APAP 5/325 MG TAB ONE ×2 (16:56→23:29)
--- NOTE | 2022-08-20 18:50 | P.CNS ---
Date of Consult: 08/20/22 Requesting Physician: Jun Hernandez Chief Complaint: Fall History of Present Illness: 76-year-old man with a history of hypertension and diabetes was brought to the emergency department due to fall at home. Reportedly losing her balance and falling after she got up from a couch. Her son called ambulance and patient was brought to the emergency department. Imaging done in the emergency department demonstrated posterolateral right 6th-10th rib fractures with no significant displacement. No pneumothorax or hemothorax. Patient admitted to surgery service. Hospitalist service is consulted to assist with management of her medical problems. Allergies Penicillins Allergy (Verified 08/08/20 07:35) Unknown Home Medications: Cyclosporine [Restasis] 1 drop EACH EYE TID 08/08/20 Diclofenac Sodium 1 appl TP TID 08/08/20 Fluoxetine HCl [Prozac] 30 mg PO DAILY 08/08/20 Hydrocodone/Acetaminophen [[place] 7.5-325 Tablet] 1 each PO TID 08/08/20 Insulin Degludec [Tresiba Flextouch U-100] 0 unit SQ SEECOM 08/08/20 Metformin HCl [Glucophage*] 2 tab PO BID 08/08/20 Metoprolol Tartrate 25 mg PO BID 08/08/20 Zolpidem Tartrate [Ambien] 5 mg PO BEDTIME 08/08/20 - Past Medical/Surgical History Diabetic: Yes -: Type 2 diabetes mellitus -: HTN -: herniated disc -: right foot surgery Psychosocial/ Personal History: Lives at home alone. - Social History Smoking Status: Unknown if ever smoked Alcohol use: No CD- Drugs: Yes Caffeine use: No Review of Systems Other: Patient denied any shortness of breath or fever or diarrhea or nausea or vomiting. Except as documented, all other systems reviewed and negative. Physical Examination Temp Pulse Resp BP Pulse Ox 97.7 F 80 17 141/73 H 98 08/20/22 16:00 08/20/22 16:00 08/20/22 16:49 08/20/22 16:00 08/20/22 16:49 General: Alert, In no apparent distress, Oriented x2 HEENT: Atraumatic, PERRLA, Mucous membr. moist/pink, EOMI, Sclerae nonicteric Neck: Supple, JVD not distended Respiratory: Clear to auscultation bilaterally, Normal air movement Cardiovascular: No edema, Regular rate/rhythm, Normal S1 S2 Capillary refill: <2 Seconds Gastrointestinal: Normal bowel sounds, Soft and benign, Non-distended, No tenderness Musculoskeletal: No swelling, No tenderness Integumentary: No rashes, No erythema Neurological: Normal strength at 5/5 x4 extr, Cranial nerves 3-12 intact Lymphatics: No axilla or inguinal lymphadenopathy Laboratory Data (last 24 hrs) 08/20/22 12:24: Sodium 132 L, Potassium 4.3, BUN 19 H, Creatinine 0.71, Glucose 191 H, Total Bilirubin 0.5, AST 19, ALT 23, Alkaline Phosphatase 57 08/20/22 11:40: WBC 10.00, Hgb 11.7 L, Hct 34.8 L, Plt Count 261 - Problems (1) Fall Current Visit: Yes Status: Acute (2) Multiple rib fractures Current Visit: Yes Status: Acute (3) Diabetes mellitus type 2 in nonobese Current Visit: Yes Status: Acute (4) Hypertension Current Visit: Yes Status: Acute Conclusions/Impression: Pain management with [place] and IV morphine. Insulin sliding scale for glucose management. Monitor respiratory status and vitals. Oxygen therapy as needed. Incentive spirometry. Continue home antihypertensives. PT consult. ADA diet
[2022-08-20] MEDS ORDERED: INSULIN -REGULAR HUMAN 50 UNIT/0.5 ML ML ONE (22:47)
[2022-08-21 02:24] LABS: Absolute Lymphocytes (CBC) 1.2 K/uL (0.7-4.9); Lymphocytes % 20.9 % (15.3-44.8); MCV 90.2 fL (80-100); MPV 7.3 fL (7.6-11.3); RBC Red Blood Cell Count 3.77 M/uL (3.86-4.86)
[2022-08-21] MEDS: MORPHINE 2 MG/ML SYR IV PRN ×3 (06:14→17:34)
[2022-08-21] MEDS ORDERED: MORPHINE 2 MG/ML SYR ONE ×3 (06:15→17:36)
--- NOTE | 2022-08-21 06:32 | EKG ---
Test Date: 2022-08-20 Test Time: 17:17:50 Program Analyst: HEATHER MEASUREMENT RESULTS: Intervals: Rate: 80 NC: 116 QRSD: 80 QT: 382 QTc: 440 [place]: P: 55 NC: 116 QRS: 52 T: 251 INTERPRETIVE STATEMENTS: Normal sinus rhythm ST & T wave abnormality, consider anterior ischemia Abnormal ECG Compared to ECG 08/08/2020 01:25:13 ST (T wave) deviation now present Possible ischemia now present T-wave abnormality no longer present Electronically Signed On 08-21-22 06:31:12 CDT by Lincoln De Guzman
[2022-08-21] MEDS: INSULIN -REGULAR HUMAN 50 UNIT/0.5 ML ML SQ SCH ×4 (07:30→21:00)
[2022-08-21] MEDS: HYDROCODONE/APAP 5/325 MG TAB PO PRN ×2 (09:33→20:05)
[2022-08-21] MEDS ORDERED: HYDROCODONE/APAP 5/325 MG TAB ONE (09:34)
[2022-08-21] MEDS ORDERED: INSULIN -REGULAR HUMAN 50 UNIT/0.5 ML ML ONE ×2 (12:06→16:39)
--- NOTE | 2022-08-21 13:45 | P.HP ---
Date of Service: 08/21/22 PC: This 76-year-old female presented to the emergency room for evaluation after sustaining a fall at home. HPC: The patient was at home, sitting on the couch. Got up to move. Lost her footing and went down. Not sure if she struck anything but noted she had pain on the right side of her chest. Describes it as severe. Hurts every time she takes to take a deep breath. She did not have loss of consciousness PMHx: Hypertension Social Hx: Allergic to penicillin, lives at home by herself. Has a son lives in [facility]. Some other relatives close by. Sys R: No cough, wheeze or shortness of breath. Denies any chest pain or palpitations. Did not really feel weak, does not think it was loss of balance, but just that she fell. O/E: Awake alert vital signs are stable HEENT: PERRL, vital signs are stable Chest: Marked amount of tenderness on the right side of the chest. Chest percussion equal both sides. Abd: Soft nontender Grethel: No other acute injuries noted peripherally Data: CT scan shows considerable rib fractures probably 5 through 10 right side Impression: Fall at home, right-sided rib fractures, no evidence of pneumothorax or intra-abdominal injury. Plan: This patient, will be admitted to the hospital for observation and respiratory toilet. We will also asked the social problems specialist to visit with the patient, as she will most likely require some halfway or rehab as she is an independent liver. She is agreeable to this.
--- NOTE | 2022-08-21 13:47 | P.PN ---
Date of Service: 08/21/22 S: Patient states that her ribs are sore, but receiving pain medicine for that. Has not noticed any other injuries to her arms legs hips etc. Right side is just very sore. Oh: Awake alert vital signs are stable, 600 cc inspiratory effort on incentive spirometry. A: Surgically stable P: Patient is surgically stable, does not require any thoracostomy catheters etc. director learning services to see regarding placement. I will discuss with my hospitalist colleague.
--- NOTE | 2022-08-21 15:55 | P.PN ---
Subjective Date of Service: 08/21/22 Chief Complaint: Fall Patient complaining of uncontrolled pain. Also noted to have tremors in both arms and legs. Physical Examination - Vital Signs Temperature: 97.8 F Blood Pressure: 138/72 Pulse: 93 Respirations: 20 Pulse Ox (%): 98 Assessment And Plan - Current Problems (Diagnosis) (1) Fall Current Visit: Yes Status: Acute (2) Multiple rib fractures Current Visit: Yes Status: Acute (3) Diabetes mellitus type 2 in nonobese Current Visit: Yes Status: Acute (4) Hypertension Current Visit: Yes Status: Acute - Plan Physical examination General: In no apparent distress, Oriented x2 HEENT: Atraumatic, Mucous membr. moist/pink, Sclerae nonicteric Neck: Supple Respiratory: Clear to auscultation bilaterally, Normal air movement Cardiovascular: No edema, Regular rate/rhythm, Normal S1 S2 Gastrointestinal: Normal bowel sounds, Soft and benign, Non-distended, No tenderness Musculoskeletal: No swelling, No tenderness Integumentary: No rashes, No erythema Neurological: Normal strength at 5/5 x4 extr, Cranial nerves 3-12 intact, memory impairment Plan: Continue supportive measures. Incentive spirometer Pain management with IV morphine and [place]. PT to evaluate. Insulin sliding scale for glucose management. Reconcile and continue other home medications. Patient may need placement.
[2022-08-21] MEDS: FLUOXETINE 10 MG CAP PO SCH (17:24)
[2022-08-21] MEDS: FLUOXETINE 20 MG CAP PO SCH (17:24)
[2022-08-21 18:04] VITALS: BMI 18.5
[2022-08-22] MEDS: HYDRALAZINE HCL 20 MG/ML VIAL IV PRN (04:12)
[2022-08-22] MEDS: INSULIN -REGULAR HUMAN 50 UNIT/0.5 ML ML SQ SCH ×4 (08:58→21:58)
[2022-08-22] MEDS ORDERED: FLUOXETINE 20 MG CAP PO SCH (09:00)
[2022-08-22] MEDS ORDERED: FLUOXETINE 10 MG CAP PO SCH (09:00)
[2022-08-22] MEDS: FLUOXETINE 10 MG CAP PO SCH (09:02)
[2022-08-22] MEDS: FLUOXETINE 20 MG CAP PO SCH (09:02)
[2022-08-22] MEDS: MORPHINE 2 MG/ML SYR IV PRN ×2 (09:07→22:02)
--- NOTE | 2022-08-22 16:12 | P.PN ---
Subjective Date of Service: 08/22/22 Chief Complaint: Fall Patient is complaining of persistent pain and tremors. I met her family-son and her brother who stated the tremor is old but getting worse. Physical Examination - Vital Signs Temperature: 97.7 F Blood Pressure: 152/72 Pulse: 121 Respirations: 16 Pulse Ox (%): 94 Assessment And Plan - Current Problems (Diagnosis) (1) Fall Current Visit: Yes Status: Acute (2) Multiple rib fractures Current Visit: Yes Status: Acute (3) Diabetes mellitus type 2 in nonobese Current Visit: Yes Status: Acute (4) Hypertension Current Visit: Yes Status: Acute - Plan Physical examination General: In no apparent distress, Oriented x2 HEENT: Atraumatic, Mucous membr. moist/pink, Sclerae nonicteric Respiratory: Clear to auscultation bilaterally, Normal air movement Cardiovascular: No edema, Regular rate/rhythm, Normal S1 S2 Gastrointestinal: Normal bowel sounds, Soft and benign, Non-distended, No tenderness Integumentary: No rashes, No erythema Neurological: Normal strength at 5/5 x4 extr, memory impairment, tremors both upper and lower limbs. Plan: Continue supportive measures. Incentive spirometer Pain management with IV morphine and [place]. Seen by Occupational Therapy and PT. she did not participate much in physical therapy due to pain. Insulin sliding scale for glucose management. Continue other home medications. Patient may need placement. Disposition: Skilled rehab and transition to long-term care.
[2022-08-22] MEDS: METFORMIN HCL 500 MG TAB PO SCH (16:50)
[2022-08-22] MEDS: HYDROCODONE/APAP 5/325 MG TAB PO PRN (16:51)
[2022-08-22] MEDS ORDERED: PANTOPRAZOLE 40MG TABLET PO SCH (17:00)
[2022-08-22] MEDS: HOME MED 1 EA UNK (Cyclosporine [Restasis] Droperette) OPTH SCH (21:00)
[2022-08-22] MEDS: ARIPiprazole 5 MG TAB PO SCH (21:56)
[2022-08-22] MEDS: METOPROLOL TAR 25 MG TAB PO SCH (21:56)
[2022-08-23 06:01] LABS: Absolute Lymphocytes (CBC) 1.2 K/uL (0.7-4.9); Hematocrit 36.5 % (36.0-45.0); Lymphocytes % 13.9 % (15.3-44.8); MCV 89.8 fL (80-100); MPV 7.6 fL (7.6-11.3); RBC Red Blood Cell Count 4.06 M/uL (3.86-4.86)
[2022-08-23] MEDS: HYDRALAZINE HCL 20 MG/ML VIAL IV PRN (06:12)
[2022-08-23 06:15] LABS: Potassium 3.9 mmol/L (3.5-5.1)
[2022-08-23] MEDS: METFORMIN HCL 500 MG TAB PO SCH ×2 (08:44→16:15)
[2022-08-23] MEDS: INSULIN -REGULAR HUMAN 50 UNIT/0.5 ML ML SQ SCH ×4 (08:44→20:55)
[2022-08-23] MEDS: FLUOXETINE 20 MG CAP PO SCH (08:46)
[2022-08-23] MEDS: METOPROLOL TAR 25 MG TAB PO SCH ×2 (08:47→20:14)
[2022-08-23] MEDS: HOME MED 1 EA UNK (Cyclosporine [Restasis] Droperette) OPTH SCH ×3 (08:47→20:55)
[2022-08-23] MEDS: FLUOXETINE 10 MG CAP PO SCH (08:47)
[2022-08-23] MEDS: HYDROCODONE/APAP 5/325 MG TAB PO PRN ×2 (08:51→20:14)
[2022-08-23] MEDS ORDERED: TRAZODONE 50 MG TABLET PO SCH (09:00)
[2022-08-23] MEDS ORDERED: SOD CHLORIDE 0.65% NASAL SPRAY NAS PRN (09:17)
--- NOTE | 2022-08-23 13:59 | P.PN ---
Subjective Date of Service: 08/23/22 Chief Complaint: Fall Patient states she feels better today. She stated her right flank pain is better. Physical Examination - Vital Signs Temperature: 98.5 F Blood Pressure: 109/59 Pulse: 78 Respirations: 14 Pulse Ox (%): 98 Assessment And Plan - Current Problems (Diagnosis) (1) Fall Current Visit: Yes Status: Acute (2) Multiple rib fractures Current Visit: Yes Status: Acute (3) Diabetes mellitus type 2 in nonobese Current Visit: Yes Status: Acute (4) Hypertension Current Visit: Yes Status: Acute (5) Alzheimer's dementia Current Visit: Yes Status: Acute - Plan Physical examination General: In no apparent distress, Oriented x2 HEENT: Atraumatic, Mucous membr. moist/pink, Sclerae nonicteric Respiratory: Clear to auscultation bilaterally, Normal air movement Cardiovascular: No edema, Regular rate/rhythm, Normal S1 S2 Gastrointestinal: Normal bowel sounds, Soft and benign, Non-distended, No tenderness Integumentary: No rashes, No erythema Neurological: Normal strength at 5/5 x4 extr, memory impairment, tremors both upper and lower limbs. Plan: Incentive spirometer Pain management with IV morphine and [place]. Patient seen by neurology-Dr. Barcenas and diagnosed with dementia. We will start patient on Aricept per neurology recommendation Insulin sliding scale for glucose management. Continue other home medications. Continue PT Disposition: Skilled rehab and transition to long-term care.
--- NOTE | 2022-08-23 16:44 | P.DS ---
Admission Date: 08/20/22 Discharge Date: 08/23/22 Disposition: TRANSFER TO ASSISTED Discharge Condition: FAIR Reason for Admission: Fall - Problems (1) Fall Current Visit: Yes Status: Acute (2) Multiple rib fractures Current Visit: Yes Status: Acute (3) Diabetes mellitus type 2 in nonobese Current Visit: Yes Status: Acute (4) Hypertension Current Visit: Yes Status: Acute (5) Alzheimer's dementia Current Visit: Yes Status: Acute Brief History of Present Illness: 76-year-old man with a history of hypertension and diabetes was brought to the emergency department due to fall at home. She reportedly lost her balance and fell after she got up from a couch. Her son called ambulance and patient was brought to the emergency department. Imaging done in the emergency department demonstrated posterolateral right 6th-10th rib fractures with no significant displacement. No pneumothorax or hemothorax. Patient admitted to surgery service. Hospitalist service was consulted to assist with management of her medical problems. Hospital Course: Patient admitted to the medical floor and treated supportively with IV morphine and oral [place] for pain, incentive spirometry and monitoring. She had no difficulty breathing and did not require oxygen. Patient noted to have tremors and memory impairment. She was seen by neurology-Dr. Barcenas who diagnosed her with dementia with memory impairment and recommended to start her on low-dose Aricept. Patient started on Aricept 5 mg daily. She was seen by physical therapy and Occupational Therapy and she was needing assistance with ambulation. Patient has been accepted to skilled rehab to continue therapy. Vitals are stable and she is clinically stable for discharge. Vital Signs/Physical Exam: Temp Pulse Resp BP Pulse Ox 98.9 F 84 16 121/64 97 08/23/22 16:00 08/23/22 16:00 08/23/22 16:00 08/23/22 16:00 08/23/22 16:00 General: In no apparent distress, Oriented x2, Confused HEENT: Mucous membr. moist/pink Neck: JVD not distended Respiratory: Clear to auscultation bilaterally, Normal air movement Cardiovascular: No edema, Regular rate/rhythm, Normal S1 S2 Gastrointestinal: Normal bowel sounds, Soft and benign, Non-distended Musculoskeletal: No swelling Integumentary: No cyanosis Neurological: Other (Tremors in both upper and lower limbs, no focal weakness.) Laboratory Data at Discharge: WBC 8.60 K/uL (4.3-10.9) 08/23/22 05:28 Hgb 12.3 g/dL (12.0-15.0) 08/23/22 05:28 Hct 36.5 % (36.0-45.0) 08/23/22 05:28 Plt Count 236 K/uL (152-406) 08/23/22 05:28 Sodium 132 mmol/L (136-145) L 08/23/22 05:28 Potassium 3.9 mmol/L (3.5-5.1) 08/23/22 05:28 BUN 13 mg/dL (7-18) 08/23/22 05:28 Creatinine 0.53 mg/dL (0.55-1.3) L 08/23/22 05:28 Glucose 239 mg/dL (74-106) H 08/23/22 05:28 Total Bilirubin 0.5 mg/dL (0.2-1.0) 08/20/22 12:24 AST 19 U/L (15-37) 08/20/22 12:24 ALT 23 U/L (12-78) 08/20/22 12:24 Alkaline Phosphatase 57 U/L (45-117) 08/20/22 12:24 Home Medications: Cyclosporine [Restasis] 1 drop EACH EYE TID 08/08/20 Fluoxetine HCl [Prozac] 40 mg PO DAILY 08/08/20 Metformin HCl [Glucophage*] 2 tab PO BID 08/08/20 Metoprolol Tartrate 25 mg PO BID 08/08/20 ARIPiprazole [Aripiprazole] 5 mg PO DAILY 08/21/22 Pantoprazole [Protonix Tab*] 40 mg PO 1X 08/21/22 Trazodone [Desyrel*] 25 mg PO DAILY 08/21/22 Donepezil [Aricept] 5 mg PO BEDTIME #30 tab 08/23/22 Hydrocodone 5/APAP 325 [Aurora 5/325*] 1 tab PO Q6H PRN #20 tab 08/23/22 Insulin -Regular Human [Novolin -R*] See Protocol SQ ACHS ml 08/23/22 Insulin Degludec [Tresiba Flextouch U-100] 5 unit SQ DAILY #10 ml 08/23/22 New Medications: Donepezil [Aricept] 5 mg PO BEDTIME #30 tab Hydrocodone 5/APAP 325 [Aurora 5/325*] 1 tab PO Q6H PRN #20 tab PRN Reason: Pain Scale 5-7 (Moderate) Insulin Degludec [Tresiba Flextouch U-100] 5 unit SQ DAILY #10 ml Diet: ADA Activity: Fall precautions Followup: Clarisse Zuñiga, [Primary Care Provider] - (within 2 weeks.)
[2022-08-23] MEDS: ARIPiprazole 5 MG TAB PO SCH (20:14)
[2022-08-23 20:59] VITALS: O2SAT 97
[2022-08-23 22:14] VITALS: BP 137/64; TEMP 98.7
--- NOTE | 2022-08-23 22:39 | CON ---
Reason For Consultation: Consultation called because of dementia. History Of Present Illness: Ms. Moon is a 76-year-old patient whom I have seen in clinic last abo ar 2 years ago for moderate cognitive impairment. Her Aly cognitive assessment test total was 1 04/29 back in August 2020. She also has comorbid hypertension and diabetes. Her daughter was in the room. The daughter said she got up, and this was on 08/20/2022, and she was home alone and walked o n carpet and apparently tripped, fell on the nearby furniture, hitting the right chest and suffering severe pain. She was home alone, but eventually was able to be brought into the hospital because of the severe pain. Imaging identified 5 fractured ribs on the right. Head CT scan did not show any ac [place] ischemic or hemorrhagic changes. Her cervical spine did not show any fractures, but as noted david st x-ray revealed posterolateral right 6th to 10th rib fractures without significant displacement. T here was no pneumothorax, contusion, or hemothorax. Laboratory studies essentially showed unremarkab le complete blood count with differential. Basic metabolic panel showed elevated glucose around 292 and sodium slightly low at 132. Liver function studies were unremarkable. COVID-19 testing was nega tive. The patient is followed by the Surgery Service and there is healing by secondary intention and no surgical intervention is to be done. The patient's daughter said that memory loss has progressed somewhat since the last 2 years, when she was last seen in clinic. She was not taking medications for cognitive deficits, but just supplement s including coconut oil 1000 mg twice daily, vitamin B12, and vitamin D3. She continued her medicati ons for blood pressure and diabetes mellitus. Since hospitalization, she has received [place] for pain and her daughter notes that she can tell when that is wearing off because she requires more [place] an d she gets it every 6 hours. The patient still lives alone, but has more problems with verbal recall, difficulty finding words, co mpleting of thoughts and keeping up with medications, plans, directions and her daughter assists with those activities. Past Medical History: As noted. Family History: Diabetes in the patient's mother and multiple children. Social History: Smokes and used alcohol in the past. Allergies: PENICILLIN. Review of Systems: Aside from mentioned, she denies any recent fevers, chills, nausea, vomiting, myalgias, arthralgias, rash, headache, weight change, or psychiatric issues. Physical Examination: Vital Signs: Blood pressure 107/45, pulse 83, respiratory rate 16, temperature 97.6, oxygen saturati on 99%-100% on room air. Current pain level around 6. General: Ms. Moon is resting comfortably in bed although she has pain in the right chest from rib fractures. HEENT: She is otherwise normocephalic and atraumatic. Sclerae anicteric. Oropharynx is moist. Chest: Clear. Abdomen: Soft. Extremities: No clubbing, cyanosis, or edema. Neurological: She is alert and oriented to person and situation. She follows simple commands with m ild difficulty. However, given her use of [place], it is not appropriate at this point to do a full ne urocognitive evaluation to determine her state of cognitive functioning. However, once she is away f rom narcotic medications, evaluation including the MoCA test will be done. She did have a 15/30 when the test was done 2 years ago. She did miss 5 for delayed verbal recall, 2 for language, 1 for orie ntation, 3 for attention, 4 for visual spatial executive functioning. In terms of her motor examinat ion, she has no focal deficits. In the extremities, she does have pain limiting her range of motion in the right upper extremity. Sensory exam intact and coordination is intact. She was assisted to t he bathroom and her gait shows good stance. Assessment: Ms. Moon is a 76-year-old patient with moderate dementia for at least 2 years ago and progressive. Last Mini-Mental State Examination was 15/30 two years ago. She currently has 5 fract ured ribs on the right after a fall and is on [place]. She has no evidence of a systemic infection and no evidence of intracerebral hemorrhage or subarachnoid hemorrhage, and she is not on medications fo r cognitive function dysfunction. At this point, once the patient is able to be discharged, she shou ld be in a facility where there is 24-hour supervision for safety awareness and to help manage the pa tient's ability to transfer and take care of herself and recover with therapy and that should be done in a facility with a memory care unit. She may continue with aggressive management of diabetes ravinder itus and hypertension. Once the patient is off narcotic medications, may re-evaluate cognitive functioning and may institute either Namenda or Aricept or galantamine or the Exelon patch depending on which is more appropriate at the time, the patient is re-evaluated. She may be discharged perhaps to shelter once available. VIC Voice ID: [id number] Report ID: [id number]
== END 2022-08-23 23:14 ==
LOC: ER 10:50 → ERHOLD 13:38 → 4TH 08-21 18:26
PROVIDERS: ADMIT Surgery; ATTEND Internal Medicine
DX: S22.41XA Multiple fractures of ribs, right side, initial encounter for closed fracture (principal); W01.10XA Fall on same level from slipping, tripping and stumbling with subsequent striking against unspecified object, initial encounter; Y93.9 Activity, unspecified; Y92.019 Unspecified place in single-family (private) house as the place of occurrence of the external cause; E11.9 Type 2 diabetes mellitus without complications; I10 Essential (primary) hypertension; G30.9 Alzheimer's disease, unspecified; F02.80 Dementia in other diseases classified elsewhere, unspecified severity, without behavioral disturbance, psychotic disturbance, mood disturbance, and anxiety; Z88.0 Allergy status to penicillin; Z20.822 Contact with and (suspected) exposure to COVID-19
CPT/HCPCS: 93005; 85025 ×3; 80048 ×2; 36415 ×2; 86900; 86850; 86901; 82947 ×15; 84443; 82728; 80053; 70450; 72125; 71045; 71100; 97535 ×2; 97110 ×4; 97112; 97165; 97530; 94010 ×3; 96372; 99285; 87811; U0003; J0360 ×2; J1815 ×8; J2270 ×5; J1170; G0378 ×6

== ENCOUNTER → 2023-12-31 | Emergency (ER) | payer OTHER ==
[~2023-12-31] MED LIST: DIAZEPAM 10 MG/2 ML INJ SYRINGE ONE; LIDOCAINE 1% 20 ML MDV ONE; MORPHINE 2 MG/ML SYR ONE; TDAP (DIPHTH,PERTUSS(ACELL),TET VAC) 0.5 ML VIAL IMVAC ONE
--- NOTE | 2023-12-31 02:09 | ER ---
Nurse's Notes [facility] Name: Cora Moon Age: 78 yrs Sex: Female : 1945 Arrival Date: 12/31/2023 Time: 00:04 Bed 15 Private MD: Diagnosis: Due to fall in a senior living, left lateral eyebrow laceration, closed head injury, left facial contusion Presentation: 12/31 00:12 Chief complaint: EMS states: Called to [facility] due to patient being cm10 found on the ground. Unknown how long pt was on ground. Pt has laceration to back of head. EMS reports giving patient oral glucose due to blood sugar being 65. Coronavirus screen: Vaccine status: Patient reports receiving the 2nd dose of the covid vaccine. Client denies travel out of the [place] in the last 14 days. Ebola Screen: Patient denies travel to an Ebola-affected area in the 21 days before illness onset. No symptoms or risks identified at this time. Initial Sepsis Screen: Does the patient meet any 2 criteria? No. Patient's initial sepsis screen is negative. Does the patient have a suspected source of infection? No. Patient's initial sepsis screen is negative. Risk Assessment: Do you want to hurt yourself or someone else? Patient reports no desire to harm self or others. Onset of symptoms was December 31, 2023. 00:12 Method Of Arrival: EMS: [facility] cm10 00:12 Acuity: DERRICK 3 cm10 Triage Assessment: 00:27 General: Appears in no apparent distress. uncomfortable, well groomed, emaciated, jw7 Behavior is calm, cooperative, anxious. Pain: Denies pain. Historical: - Allergies: 00:15 PENICILLINS; cm10 - Home Meds: 00:15 Novolin R Sub-Q [Active]; Paxil 40 mg Oral tablet 1 tab daily [Active]; buspirone 5 mg cm10 Oral tablet 1 tab 3 times per day [Active]; ascorbic acid (vitamin C) 500 mg tablet 2 times per day [Active]; zinc sulfate 50 mg zinc (220 mg) Oral capsule 1 cap daily [Active]; Restasis 0.05 % ophthalmic (eye) Dropperette 1 drop 2 times per day [Active]; Lantus U-100 Insulin 100 unit/mL Sub-Q solution 25 units daily [Active]; Lantus U-100 Insulin 100 unit/mL Sub-Q solution 10 units every evening [Active]; aripiprazole 10 mg oral tablet 1 tab every day at bedtime [Active]; metformin 1,000 mg Oral tablet 1 tab 2 times per day [Active]; famotidine 20 mg Oral tablet daily [Active]; donepezil 5 mg oral tablet every day at bedtime [Active]; metoprolol tartrate 25 mg Oral tablet 2 times per day [Active]; - PMHx: 00:15 Anxiety; Dementia; Diabetes - NIDDM; DYSPHAGIA; Hypertensive disorder; MUSCLE WEAKNESS; cm10 - Immunization history:: Adult Immunizations up to date. - Social history:: Smoking status: Patient denies any tobacco usage or history of. - Family history:: not pertinent. Screenin:25 [facility] ED Fall Risk Assessment (Adult) History of falling in the last 3 months, jw7 including since admission Yes- fall prone (multiple falls) (3 pts) Confusion or Disorientation Yes (5 pts) Intoxicated or Sedated No (0 pts) Impaired Gait Yes (1 pt) Mobility Assist Device Used Yes (1 pt) Altered Elimination Yes (1 pt) Score/Fall Risk Level 3 or more points = High Risk Oriented to surroundings, Maintained a safe environment, Educated pt \T\ family on fall prevention, incl call for assistance when getting out of bed, Assessed \T\ reinforced patient's understanding of fall precautions, Provided non-skid footwear, Hourly rounding (assess needs \T\ fall precautionary measures) done. Abuse screen: Denies threats or abuse. Denies injuries from another. Nutritional screening: Difficulty chewing/swallowing? Yes. Tuberculosis screening: No symptoms or risk factors identified. Assessment: 02:00 Reassessment: Patient and/or family updated on plan of care and expected duration. Pain vc1 level reassessed. Patient states feeling better. Patient states symptoms have improved. 03:00 Reassessment: Patient appears in no apparent distress at this time. No changes from vc1 previously documented assessment. Patient and/or family updated on plan of care and expected duration. Pain level reassessed. 03:30 General: Called to get an ETA on transportation of patient back to [facility]. Nurse is vc1 new and did not realize they needed to call an ambulance to come sheepskin pickler their resident.. 04:00 Reassessment: No changes from previously documented assessment. Patient and/or family vc1 updated on plan of care and expected duration. Pain level reassessed. Vital Signs: 00:12 BP 113 / 63; Pulse 70; Resp 16 S; Temp 98.1(TE); Pulse Ox 95% on R/A; Weight 45.27 kg; jw7 Pain 0/10; 01:00 BP 115 / 62; Pulse 70; Resp 16; Pulse Ox 96% ; vc1 02:00 BP 120 / 68; Pulse 68; Resp 48; Pulse Ox 96% ; vc1 03:00 BP 142 / 67; Pulse 72; Resp 17; Pulse Ox 96% ; vc1 03:30 BP 148 / 59; Pulse 74; Resp 17; Pulse Ox 95% ; vc1 00:12 Pain Scale: Adult jw7 ED Course: 00:07 Patient arrived in ED. cm10 00:08 Cayla Martínez RN is Primary Nurse. jw7 00:09 Miguel Li MD is Attending Physician. sp4 00:15 Triage completed. cm10 00:24 Arm band placed on Patient placed in an exam room, on a stretcher, on pulse oximetry. cm10 00:25 Patient has correct armband on for positive identification. Bed in low position. Call [facility] light in reach. Side rails up X2. 00:33 Chest Single View XRAY In Process Unspecified. EDMS 00:33 Pelvis XRAY In Process Unspecified. EDMS 01:06 CT Head C Spine In Process Unspecified. EDMS 04:03 No provider procedures requiring assistance completed. vc1 04:03 Patient did not have IV access during this emergency room visit. vc1 Administered Medications: 00:43 Not Given (Physician Discretion): hydrocodone-acetaminophen5 mg-325 mg 1 tabs PO once sp4 01:12 Drug: morphine IM 2 mg IM once Route: IM; Site: right vastus lateralis; jw7 04:05 Follow up: Response: No adverse reaction; Marked relief of symptoms; Pain is decreased vc1 01:13 Drug: Diazepam IM 5 mg IM once Route: IM; Site: left vastus lateralis; jw7 04:05 Follow up: Response: No adverse reaction; Marked relief of symptoms; Anxiety decreased vc1 01:13 Not Given (Product Out of Stock): tetanus-diphtheria toxoidadult 0.5 ml IM once; jw7 Provide Vaccine Information Statement (VIS). 01:13 Drug: Boostrix Tdap IM 0.5 ml IM once; as a single dose Route: IM; Site: right deltoid; jw7 04:05 Follow up: Response: No adverse reaction vc1 02:10 Drug: Lidocaine Infiltration (1 %) 20 ml 20 ml Infiltration once; to bedside Volume: 20 jw7 ml; Route: Infiltration; Medication: 04:04 VIS not applicable for this client. vc1 Outcome: 02:08 Discharge ordered by MD. lopez 04:03 Discharged to senior living. Report called to [facility] Transfer form completed. Picked vc1 up by [facility] ambulance 04:03 Condition: good 04:03 Discharge instructions given to senior living, Instructed on discharge instructions, follow up and referral plans. 04:05 Patient left the ED. vc1 Signatures: Dispatcher [employer] EDMS Ria Hay RN RN vc1 Cayla Martínez RN RN jw7 Miguel Li MD MD sp4 Annie Sherwood RN RN cm10
--- NOTE | 2023-12-31 02:09 | EDPHYS ---
Physician Documentation [facility] Name: Cora Moon Age: 78 yrs Sex: Female : 1945 Arrival Date: 12/31/2023 Time: 00:04 Bed 15 Private MD: ED Physician Miguel Li HPI: 12/31 00:09 This 78 yrs old Female presents to ER via Unassigned with complaints of fall .sp4 01:43 78-year-old female presents from correction with acute fall from the bed. Patient was sp4 found on the floor facedown. Patient has left lateral eyebrow laceration. . Historical: - Allergies: 00:15 PENICILLINS; cm10 - Home Meds: 00:15 Novolin R Sub-Q [Active]; Paxil 40 mg Oral tablet 1 tab daily [Active]; buspirone 5 mg cm10 Oral tablet 1 tab 3 times per day [Active]; ascorbic acid (vitamin C) 500 mg tablet 2 times per day [Active]; zinc sulfate 50 mg zinc (220 mg) Oral capsule 1 cap daily [Active]; Restasis 0.05 % ophthalmic (eye) Dropperette 1 drop 2 times per day [Active]; Lantus U-100 Insulin 100 unit/mL Sub-Q solution 25 units daily [Active]; Lantus U-100 Insulin 100 unit/mL Sub-Q solution 10 units every evening [Active]; aripiprazole 10 mg oral tablet 1 tab every day at bedtime [Active]; metformin 1,000 mg Oral tablet 1 tab 2 times per day [Active]; famotidine 20 mg Oral tablet daily [Active]; donepezil 5 mg oral tablet every day at bedtime [Active]; metoprolol tartrate 25 mg Oral tablet 2 times per day [Active]; - PMHx: 00:15 Anxiety; Dementia; Diabetes - NIDDM; DYSPHAGIA; Hypertensive disorder; MUSCLE WEAKNESS; cm10 - Immunization history:: Adult Immunizations up to date. - Social history:: Smoking status: Patient denies any tobacco usage or history of. - Family history:: not pertinent. ROS: 01:46 Constitutional: Negative for fever, chills, and weight loss, sp4 01:46 All other systems are negative, 01:46 Constitutional: Negative for fever, chills, and weight loss, positive full positive sp4 left eyebrow laceration Exam: 01:46 Constitutional: This is a well developed, well nourished patient who is awake, alert, sp4 and in no acute distress. Patient is frail elderly female, moderate to severe physical deconditioning, cachexia, resting tremor, nonambulatory, moderate to severe dementia, able to follow basic commands. Able to communicate her name, alert and oriented to self and others Head/Face: Normocephalic, left lateral eyebrow 1 cm laceration Eyes: Pupils equal round and reactive to light, extra-ocular motions intact. Lids and lashes normal. Conjunctiva and sclera are not injected. Cornea within normal limits. Periorbital areas with no swelling, redness, or edema. ENT: Nares patent. No nasal discharge, no septal abnormalities noted. Tympanic membranes are normal and external auditory canals are clear. Oropharynx with no redness, swelling, or masses, exudates, or evidence of obstruction, uvula midline. Mucous membranes moist. Neck: Trachea midline, no thyromegaly or masses palpated, and no cervical lymphadenopathy. Supple, full range of motion without nuchal rigidity, or vertebral point tenderness. Chest/axilla: Normal chest wall appearance and motion. Nontender with no deformity. No lesions are appreciated. Cardiovascular: Regular rate and rhythm with a normal S1 and S2. No gallops, murmurs, or rubs. Normal PMI, no JVD. No pulse deficits. Respiratory: Lungs have equal breath sounds bilaterally, clear to auscultation and percussion. No rales, rhonchi or wheezes noted. No increased work of breathing, no retractions or nasal flaring. Abdomen/GI: Soft, non-tender, with normal bowel sounds. No distension or tympany. No guarding or rebound. No evidence of tenderness throughout. Back: No spinal tenderness. No costovertebral tenderness. Female : Normal external genitalia. Bladder incontinence Skin: Warm, dry with normal turgor. Normal color with no rashes, no lesions, and no evidence of cellulitis. MS/ Extremity: Pulses equal, no cyanosis. Neurovascular intact. Moderate bilateral muscular atrophy from immobility. No deformities Neuro: Awake and alert, GCS 15, oriented to person, able to follow basic commands, exam difficult secondary to prolonged immobility, nonambulatory patient, multiple contractures from immobility, no new neurologic deficits reported Vital Signs: 00:12 BP 113 / 63; Pulse 70; Resp 16 S; Temp 98.1(TE); Pulse Ox 95% on R/A; Weight 45.27 kg; jw7 Pain 0/10; 01:00 BP 115 / 62; Pulse 70; Resp 16; Pulse Ox 96% ; vc1 02:00 BP 120 / 68; Pulse 68; Resp 48; Pulse Ox 96% ; vc1 03:00 BP 142 / 67; Pulse 72; Resp 17; Pulse Ox 96% ; vc1 03:30 BP 148 / 59; Pulse 74; Resp 17; Pulse Ox 95% ; vc1 00:12 Pain Scale: Adult jw7 Laceration: 02:06 Wound Repair of 1cm ( 0.4in ) subcutaneous laceration to outer aspect of left eyebrow sp4 and left eye. Irregularly shaped.. Distal neuro/vascular/tendon intact. Anesthesia: Wound infiltrated with 3 mls of 1% lidocaine. Wound prep: Moderate cleansing by me, Copious irrigation. Skin closed with 5 4-0 Vicryl using interrupted sutures and sterile technique. Dressed with left to air . Patient tolerated well. MDM: 00:14 Patient medically screened. sp4 01:41 ED course: Head C Spine Mpr Wo Con CLINICAL HISTORY: 78 years Female head injury sp4 COMPARISON: None TECHNIQUE: Images were obtained in axial, sagittal, and coronal planes. This exam was performed according to our departmental dose-optimization program which includes use of Automated Exposure Control, adjustment of the mA and/or kV according to patient size and/or use of iterative reconstruction technique. FINDINGS: CT brain: Ventricular system is mildly enlarged. Moderate prominence of the cortical sulci. Moderate periventricular decreased attenuation consistent with more remote microvascular ischemic change. No abnormal areas of increased attenuation seen. No extra-axial fluid collections noted. No evidence for skull fracture. Sclerotic changes mastoid air cells bilaterally. Unremarkable paranasal sinuses. CT cervical spine: Height of the vertebral bodies is intact. All satisfactory alignment and articular facets. Mild anterior osteophyte formation multiple levels. Intervertebral disc space narrowing C4-5 and C6-7 levels. Intact odontoid and predental space. Prevertebral soft tissues appear normal. Marginal spur formation with neural foraminal narrowing C4-5 on the left, C5-6 on the right, and C6-7 bilaterally. Intact occipital condyles. Intact C1. Posterior elements intact on all levels. No abnormality in lung apices bilaterally. No focal disc protrusion. IMPRESSION: 1. No acute intracranial abnormality. No evidence for hemorrhage, mass lesion, or large acute infarction. Age-appropriate changes. 2. No acute fracture or subluxation involving the cervical spine. Moderate multilevel osteoarthritic change. . ED course: CLINICAL HISTORY: fall COMPARISON: None. TECHNIQUE: XR PELVIS 1-2 VIEWS 12/31/2023 12:14 AM DEVELOPMENT SPEC FINDINGS: There is suggestion of an impacted right femoral neck fracture. There is moderate narrowing of both hip joints. Soft tissues are unremarkable. IMPRESSION: Suggestion of right femoral neck fracture. Limited study. ED course: CLINICAL HISTORY: fall, injury COMPARISON: 08/30/2023. TECHNIQUE: XR CHEST 1 VIEW 12/31/2023 12:14 AM DEVELOPMENT SPEC FINDINGS: Cardiac silhouette is normal in size. Lungs are clear without consolidation, atelectasis, mass or edema. There is no pleural effusion. There is no pneumothorax. There are multiple old posterior right rib fractures. IMPRESSION: Clear lungs.. 20:28 Differential Diagnosis altered mental status, sepsis, flu, Fall at home, closed head sp4 injury, concussion, left eyebrow laceration. Data reviewed: vital signs, nurses notes, old medical records, radiologic studies, CT scan, plain films. Consideration of Admission/Observation Escalation of care including admission/observation considered. ED course: Patient has old right femoral neck fracture. As compared to 08/30/2023 right femoral neck fracture was first noted. This fracture was never fixed. Patient is nonambulatory and the right femoral neck fracture is old. . 20:33 ED course: Comparison CT - : Mildly impacted subcapital right femoral neck fracture. sp4 Diffuse bony osteopenia. Degenerative changes lumbar spine at L4/L5. Electronically signed by: Tonny Schwarz MD 08/30/2023 . 20:33 ED course: Since right femoral neck fracture is old patient is stable for release back sp4 to the correction. She remains nonambulatory.. . 12/31 00:09 Order name: CT Head C Spine sp4 12/31 00:14 Order name: Chest Single View XRAY sp4 12/31 00:14 Order name: Pelvis XRAY sp4 12/31 00:10 Order name: Dressing - Wound; Complete Time: 01: sp4 12/31 00:10 Order name: Gloves, Sterile; Complete Time: sp4 12/31 00:10 Order name: Setup Suture Tray; Complete Time: : sp4 Administered Medications: 00:43 Not Given (Physician Discretion): hydrocodone-acetaminophen5 mg-325 mg 1 tabs PO once sp4 01:12 Drug: morphine IM 2 mg IM once Route: IM; Site: right vastus lateralis; jw7 04:05 Follow up: Response: No adverse reaction; Marked relief of symptoms; Pain is decreased vc1 01:13 Drug: Diazepam IM 5 mg IM once Route: IM; Site: left vastus lateralis; jw7 04:05 Follow up: Response: No adverse reaction; Marked relief of symptoms; Anxiety decreased vc1 01:13 Not Given (Product Out of Stock): tetanus-diphtheria toxoidadult 0.5 ml IM once; jw7 Provide Vaccine Information Statement (VIS). 01:13 Drug: Boostrix Tdap IM 0.5 ml IM once; as a single dose Route: IM; Site: right deltoid; jw7 04:05 Follow up: Response: No adverse reaction vc1 02:10 Drug: Lidocaine Infiltration (1 %) 20 ml 20 ml Infiltration once; to bedside Volume: 20 jw7 ml; Route: Infiltration; Disposition Summary: 12/31/23 02:08 Discharge Ordered Problem: new sp4 Symptoms: have improved sp4 Condition: Stable sp4 Diagnosis - Due to fall in a correction, left lateral eyebrow laceration, closed head injury, sp4 left facial contusion Followup: sp4 - With: Private Physician - When: 7 - 10 days - Reason: Recheck today's complaints Discharge Instructions: - Discharge Summary Sheet sp4 - Facial Laceration, Tzcy-we-Hnci sp4 Forms: - Patient Portal Instructions sp4 Signatures: Dispatcher [employer] Cayla Gonzales RN RN jw7 Miguel Li MD MD sp4 Annie Sherwood RN RN cm10 Ria Hay RN vc1
[2023-12-31 12:33] VITALS: BP 148/59; TEMP 98.1; O2SAT 95
--- NOTE | 2023-12-31 13:06 | RAD REPORT ---
EXAM DESCRIPTION: CT - Head C Spine Mpr Wo Con - 12/31/2023 7:20 am CLINICAL HISTORY: 78 years Female head injury COMPARISON: None TECHNIQUE: Images were obtained in axial, sagittal, and coronal planes. This exam was performed according to our departmental dose-optimization program which includes use of Automated Exposure Control, adjustment of the mA and/or kV according to patient size and/or use of iterative reconstruction technique. FINDINGS: CT brain: Ventricular system is mildly enlarged. Moderate prominence of the cortical sulci . Moderate periventricular decreased attenuation consistent with more remote microvascular ischemic c hange. No abnormal areas of increased attenuation seen. No extra-axial fluid collections noted. No ev idence for skull fracture. Sclerotic changes mastoid air cells bilaterally. Unremarkable paranasal si nuses. CT cervical spine: Height of the vertebral bodies is intact. All satisfactory alignment and articular facets. Mild anterior osteophyte formation multiple levels. Intervertebral disc space narrowing C4-5 and C6-7 levels. Intact odontoid and predental space. Prevertebral soft tissues appear normal. Carisa nal spur formation with neural foraminal narrowing C4-5 on the left, C5-6 on the right, and C6-7 bila [address]ally. Intact occipital condyles. Intact C1. Posterior elements intact on all levels. No abnormalit y in lung apices bilaterally. No focal disc protrusion. IMPRESSION: 1. No acute intracranial abnormality. No evidence for hemorrhage, mass lesion, or larg e acute infarction. Age-appropriate changes. 2. No acute fracture or subluxation involving the cervical spine. Moderate multilevel osteoarthriti c change. Electronically signed by: Kimberly Rogers MD 12/31/2023 01:17 AM [employer] PLACING SUPERVISOR Due to temporary technical issues with the PACS/Fluency reporting system, reports are being signed by the in house radiologist without review as a courtesy to ensure prompt reporting. The interpreting r adiologist is fully responsible for the content of the report.
--- NOTE | 2023-12-31 13:46 | RAD REPORT ---
EXAM DESCRIPTION: RAD - Chest Single View - 12/31/2023 12:31 am CLINICAL HISTORY: Fall, injury COMPARISON: 08/30/2023. TECHNIQUE: XR CHEST 1 VIEW 12/31/2023 12:14 AM PHYSICIST SOLID STATE FINDINGS: Cardiac silhouette is normal in size. Lungs are clear without consolidation, atelectasis, mass or edema. There is no pleural effusion. There is no pneumothorax. There are multiple old posteri or right rib fractures. IMPRESSION: Clear lungs. Electronically signed by: Apolinar Anton MD 12/31/2023 12:45 AM PHYSICIST SOLID STATE Due to temporary technical issues with the PACS/Fluency reporting system, reports are being signed by the in house radiologist without review as a courtesy to ensure prompt reporting. The interpreting r adiologist is fully responsible for the content of the report.
--- NOTE | 2023-12-31 13:49 | RAD REPORT ---
EXAM DESCRIPTION: RAD - Pelvis - 12/31/2023 12:31 am CLINICAL HISTORY: Fall COMPARISON: None. TECHNIQUE: XR PELVIS 1-2 VIEWS 12/31/2023 12:14 AM SERVICE REPRESENTATIVE FINDINGS: There is suggestion of an impacted right femoral neck fracture. There is moderate narrowin g of both hip joints. Soft tissues are unremarkable. IMPRESSION: Suggestion of right femoral neck fracture. Limited study. Electronically signed by: Apolinar Anton MD 12/31/2023 12:47 AM SERVICE REPRESENTATIVE Due to temporary technical issues with the PACS/Fluency reporting system, reports are being signed by the in house radiologist without review as a courtesy to ensure prompt reporting. The interpreting r adiologist is fully responsible for the content of the report.
== END ==
LOC: ER 00:04
PROC: 0HQ1XZZ Repair Face Skin, External Approach (ICD-10-PCS; principal; 2023-12-31)
DX: S01.112A Laceration without foreign body of left eyelid and periocular area, initial encounter (principal); W06.XXXA Fall from bed, initial encounter; Y92.122 Bedroom in nursing home as the place of occurrence of the external cause; E11.9 Type 2 diabetes mellitus without complications; I10 Essential (primary) hypertension; F03.90 Unspecified dementia, unspecified severity, without behavioral disturbance, psychotic disturbance, mood disturbance, and anxiety; Z79.4 Long term (current) use of insulin; Z88.0 Allergy status to penicillin
CPT/HCPCS: 70450; 71045; 72125; 72170; J2001; J2270; J3360

== ENCOUNTER 2024-03-30 09:36 | Inpatient (IN) | payer OTHER ==
[2024-03-30] MEDS ORDERED: NA CHLORIDE 0.9% 1,000 ML ONE ×2 (09:57→16:04)
[2024-03-30 10:17] LABS: Absolute Basophils 0.1 K/uL (0-0.5); Absolute Eosinophils 0.1 K/uL (0-0.5); Absolute Lymphocytes (CBC) 1.3 K/uL (0.7-4.9); Absolute Monocytes 0.5 K/uL (0.1-1.3); Absolute Neutrophil 4.4 K/uL (1.8-8.0); Basophils % 0.9 % (0-1.3); Hematocrit 33.8 % (36.0-45.0); Hemoglobin 10.8 g/dL (12.0-15.0); Lymphocytes % 20.6 % (15.3-44.8); MCH 28.6 pg (27.0-35.0); MCV 89.4 fL (80-100); MPV 8.1 fL (7.6-11.3); Monocytes % 7.4 % (3.3-12.3); Neutrophils % 70.1 % (41.7-73.7); Platelets 290 thou/uL (152-406); RBC Red Blood Cell Count 3.78 M/uL (3.86-4.86); Red Cell Distribution Width 16.5 % (12.1-15.2)
[2024-03-30 10:23] LABS: PT Prothrombin Time 11.7 SECONDS (9.5-12.5); Protime INR 1.07
--- NOTE | 2024-03-30 10:26 | RAD REPORT ---
EXAM DESCRIPTION: CT - Head C Spine Cap Wo Con - 03/30/2024 9:56 am CLINICAL HISTORY: Head and neck injury with chest and abdominal pain status post fall TECHNIQUE: Computed axial tomography of head, neck, chest, abdomen and pelvis obtained. IV and oral contrast not requested. Coronal and sagittal reconstruction performed. All CT scans are performed using dose optimization technique as appropriate and may include automated exposure control or mA/KV adjustment according to patient size. COMPARISON: CT head and cervical spine December 2023 Pelvis 2022 FINDINGS: An intracranial bleed is not seen. The ventricles are normal in caliber. An extra-axial fluid collection is not noted. Fluid within the sinuses/mastoids is not seen. A cervical fracture is not seen. No dislocation is noted. The evaluation of mediastinum, castillo, vessels, solid organs and bowel are limited secondary to the lac k of contrast administration. A mediastinal hematoma is not noted. A pleural effusion is not seen. A lung contusion is not present. Old rib fractures The liver,spleen, pancreas, adrenals,kidneys and bladder do not demonstrate an acute traumatic injury Chronic subcapital fracture right femur IMPRESSION: No acute intracranial abnormality is seen. A cervical fracture is not visualized. If the patient continues to have symptoms to suggest intracran ial/spinal cord pathology MRI be recommended No acute traumatic abnormality involving the chest, abdomen or pelvis Chronic subcapital fracture right femur
[2024-03-30] MEDS ORDERED: INSULIN REGULAR (HUMAN) 100 UNIT/ML ONE ×2 (10:30→15:07)
--- NOTE | 2024-03-30 10:30 | RAD REPORT ---
EXAM DESCRIPTION: [facility] Single View03/30/2024 10:04 am CLINICAL HISTORY: Chest pain COMPARISON: December 2023 FINDINGS: The lungs appear clear of acute infiltrate. The heart is normal size IMPRESSION: No acute abnormalities displayed
[2024-03-30 10:36] LABS: Specific Gravity 1.028 (1.005-1.030); Sqamous Epithelial None Seen /HPF (None Seen); Urine Bacteria 20-50 /HPF (<20); Urine Bilirubin NEGATIVE (Negative); Urine Blood Negative (Negative); Urine Clarity Extremely Turbid (Clear); Urine Color Light-Yellow (Yellow); Urine Culture Reflex Order REFLEXED; Urine Glucose 4+ (Over) (Negative); Urine Ketones TRACE (Negative); Urine Microscopic Reflex YN ORDER UMIC; Urine Mucus Slight /HPF (None Seen); Urine Nitrite 2+ (Negative); Urine Protein NEGATIVE (Negative); Urine RBC <5 /HPF (None Seen); Urine Urobilinogen Normal (Normal); Urine WBC >50 /HPF (<5); Urine WBC Clump Rare /HPF (None Seen); Urine Yeast (Budding) Trace /HPF (None Seen); Urine pH 5.5 (5.0-7.0)
[2024-03-30 10:48] LABS: ALT/SGPT 15 U/L (13-56); Albumin 2.7 g/dL (3.4-5.0); Albumin/Globulin Ratio 0.6 (1.1-1.8); Alkaline Phosphatase 53 U/L (45-117); Anion Gap 7.6 mEq/L (5.0-15.0); BUN Blood Urea Nitrogen 29 mg/dL (7-18); Bicarbonate 30 mEq/L (21-32); Bilirubin Total 0.3 mg/dL (0.2-1.0); Globulin 4.4 g/dL (2.3-3.5); Glomerular Filtration Rate 71 ml/min (=/>90); Lipase 43 U/L (13-75); NT PRO-BNP 232 pg/mL (<450); Protein, Total 7.1 g/dL (6.4-8.2); Sodium Level 133 mEq/L (136-145); Troponin High Sensitivity 4.2 pg/mL (<58.9); Valproic Acid (Depakene) Level 26.1 mcg/mL (50.0-100.0)
[2024-03-30 10:49] LABS: AST/SGOT 19 U/L (15-37); Bilirubin Direct < 0.1 mg/dL (0-0.2); Bilirubin Indirect, Calculated ND mg/dL (0.2-0.8); Potassium 4.6 mEq/L (3.5-5.1)
[2024-03-30 10:50] LABS: Glucose Level 427 mg/dL (74-106)
[2024-03-30] MEDS ORDERED: INSULIN GLARGINE 100 UNIT/ML SQ ONE (11:07)
[2024-03-30] MEDS ORDERED: NA CHLORIDE 0.9% 50 ML ONE (12:50)
[2024-03-30] MEDS ORDERED: CEFTRIAXONE 1000 MG/VIAL ONE (12:50)
--- NOTE | 2024-03-30 12:58 | EDPHYS ---
Physician Documentation [facility] Name: Cora Moon Age: 78 yrs Sex: Female : 1945 Arrival Date: 03/30/2024 Time: 09:36 Bed 18 Private MD: ED Physician Tamir Ferris HPI: 03/30 12:46 This 78 yrs old Female presents to ER via EMS with complaints of High Blood edda Sugar. 12:46 The patient or guardian reports hyperglycemia. Onset: The symptoms/episode edda began/occurred 3 day(s) ago. 12:47 Associated signs and symptoms: Pertinent positives: urinary incontinence. Details of edda fall: The patient fell from an upright position, while standing. Associated injuries: The patient sustained injury to the chest, contusion. The patient presents with confusion, trouble concentrating, hx of dementia. Possible causes: CVA or TIA, head injury, seizure. Associated signs and symptoms: The patient has no apparent associated signs or symptoms. Current symptoms: In the emergency department the patient's symptoms are unchanged from the initial presentation. Patient's baseline: Neuro: alert but confused, Motor: no deficits, Ambulation: unable to walk, Speech: the patient can speak but doesn't make sense. Severity of symptoms: At their worst the symptoms were mild, in the emergency department the symptoms are unchanged. The patient has experienced similar episodes in the past, a few times. Historical: - Allergies: 09:44 PENICILLINS; rs5 - PMHx: 09:44 Anxiety; DYSPHAGIA; Diabetes - NIDDM; Dementia; Hypertensive disorder; MUSCLE WEAKNESS; rs5 - PSHx: 09:44 None; rs5 - Immunization history:: Adult Immunizations up to date. - Infectious Disease History:: Denies. - Social history:: Smoking status: unknown. - Family history:: not pertinent. ROS: 12:47 Constitutional: Negative for fever, chills, and weight loss, Eyes: Negative for injury, edda pain, redness, and discharge, ENT: Negative for injury, pain, and discharge, Neck: Negative for injury, pain, and swelling, Cardiovascular: Negative for chest pain, palpitations, and edema, Respiratory: Negative for shortness of breath, cough, wheezing, and pleuritic chest pain, Abdomen/GI: Negative for abdominal pain, nausea, vomiting, diarrhea, and constipation, : Negative for injury, bleeding, discharge, and swelling, MS/Extremity: Negative for injury and deformity, Skin: Negative for injury, rash, and discoloration, Psych: Negative for depression, anxiety, suicide ideation, homicidal ideation, and hallucinations, Allergy/Immunology: Negative for hives, rash, and allergies, Endocrine: Negative for neck swelling, polydipsia, polyuria, polyphagia, and marked weight changes, Hematologic/Lymphatic: Negative for swollen nodes, abnormal bleeding, and unusual bruising, 12:47 Back: Positive for pain at rest, of the left mid back, 12:47 Neuro: Positive for altered mental status, weakness, advanced dementia, Exam: 12:47 Constitutional: This is a well developed, well nourished patient who is awake, alert, edda and in no acute distress. Head/Face: Normocephalic, atraumatic. Eyes: Pupils equal round and reactive to light, extra-ocular motions intact. Lids and lashes normal. Conjunctiva and sclera are non-icteric and not injected. Cornea within normal limits. Periorbital areas with no swelling, redness, or edema. ENT: Nares patent. No nasal discharge, no septal abnormalities noted. Tympanic membranes are normal and external auditory canals are clear. Oropharynx with no redness, swelling, or masses, exudates, or evidence of obstruction, uvula midline. Mucous membranes moist. Neck: Trachea midline, no thyromegaly or masses palpated, and no cervical lymphadenopathy. Supple, full range of motion without nuchal rigidity, or vertebral point tenderness. No Meningismus. Chest/axilla: Normal chest wall appearance and motion. Nontender with no deformity. No lesions are appreciated. Cardiovascular: Regular rate and rhythm with a normal S1 and S2. No gallops, murmurs, or rubs. Normal PMI, no JVD. No pulse deficits. Respiratory: Lungs have equal breath sounds bilaterally, clear to auscultation and percussion. No rales, rhonchi or wheezes noted. No increased work of breathing, no retractions or nasal flaring. Abdomen/GI: Soft, non-tender, with normal bowel sounds. No distension or tympany. No guarding or rebound. No evidence of tenderness throughout. Female : Normal external genitalia. Skin: Warm, dry with normal turgor. Normal color with no rashes, no lesions, and no evidence of cellulitis. MS/ Extremity: Pulses equal, no cyanosis. Neurovascular intact. Full, normal range of motion. Psych: Awake, alert, with orientation to person, place and time. Behavior, mood, and affect are within normal limits. 12:47 Back: pain, that is very mild, ROM is normal, normal spinal alignment noted, CVA tenderness, is absent, muscle spasm, is not present, 12:47 Neuro: Orientation: Not oriented to person, place, time, situation, Mentation: confused, Memory: unable to test, Cranial nerves: is grossly normal based on the patient's age, Cerebellar function: is grossly normal based on the patient's age, Motor: moves all fours, Sensation: unable to test, Gait: not tested. seizure activity, is not displayed by the patient, 12:57 ECG was reviewed by the Attending Physician. edda Vital Signs: 09:45 BP 111 / 60; Pulse 73; Resp 18; Temp 97.8(O); Pulse Ox 99% on R/A; rs5 11:05 BP 117 / 65; Pulse 74; Resp 18; Pulse Ox 98% on R/A; rs5 13:05 BP 115 / 66; Pulse 76; Resp 17; Pulse Ox 99% on R/A; rs5 Canon Coma Score: 12:47 Eye Response: spontaneous(4). Motor Response: localizes pain(5). Verbal Response: edda confused(4). Total: 13. MDM: 09:41 Patient medically screened. edda 09:41 Patient medically screened. edda 12:52 Differential diagnosis: DKA, hyperglycemia. Differential diagnosis: abrasion, closed edda head injury, contusion, fracture, multiple trauma, sprain, strain, CVA, intracranial bleed, seizure, sepsis, TIA, UTI, volume depletion. Data reviewed: vital signs, nurses notes, EMS record, lab test result(s), EKG, radiologic studies, CT scan, plain films. Consideration of Admission/Observation Patient was admitted/placed on observation. Escalation of care including admission/observation considered. I considered the following discharge prescriptions or medication management in the emergency department Medications were administered in the Emergency Department. See MAR. Independent interpretation of the following test(s) in the Emergency Department EKG: See my EKG interpretation above. Test considered but Not performed: Ultrasound no abd usg. Care significantly affected by the following chronic conditions: Diabetes, Hypertension, anxiety. dysphagia, type 2, advanced dementia. 03/30 09:43 Order name: Basic Metabolic Panel; Complete Time: 12:42 [facility] 03/30 09:43 Order name: CBC with Diff; Complete Time: 10:22 edda 03/30 09:43 Order name: LFT's; Complete Time: 12:42 [facility] 03/30 09:43 Order name: Magnesium; Complete Time: 12:42 edda 03/30 09:43 Order name: NT PRO-BNP; Complete Time: 12:42 03/30 09:43 Order name: PT-INR; Complete Time: 12:42 edda 03/30 09:43 Order name: Troponin HS; Complete Time: 12:42 [facility] 03/30 09:43 Order name: Lipase; Complete Time: 12:42 [facility] 03/30 09:43 Order name: Urinalysis w/ reflexes; Complete Time: 12:42 [facility] 03/30 09:43 Order name: Valproic Acid (depakote); Complete Time: 12:42 [facility] 03/30 10:39 Order name: Urine Culture EDFL 03/30 11:30 Order name: Glucose, Ancillary Testing; Complete Time: 12:42 EDMS 03/30 14:08 Order name: Basic Metabolic Panel EDMS 03/30 14:08 Order name: Basic Metabolic Panel EDMS 03/30 14:08 Order name: Basic Metabolic Panel EDMS 03/30 14:08 Order name: CBC with Automated Diff EDMS 03/30 14:08 Order name: CBC with Automated Diff EDMS 03/30 14:08 Order name: CBC with Automated Diff EDMS 03/30 15:15 Order name: Glucose, Ancillary Testing EDFL 03/30 09:43 Order name: XRAY Chest (1 view); Complete Time: 12:42 edda 03/30 09:43 Order name: CT Traumagram (Head C Spine CAP wo con); Complete Time: 12:42 [facility] 03/30 09:43 Order name: EKG; Complete Time: 09:43 [facility] 03/30 09:43 Order name: Cardiac monitoring; Complete Time: 10:10 [facility] 03/30 09:43 Order name: EKG - Nurse/Tech; Complete Time: 10:10 [facility] 03/30 09:43 Order name: IV Saline Lock; Complete Time: 10:10 03/30 09:43 Order name: Labs collected and sent; Complete Time: 10: [facility] 03/30 09:43 Order name: O2 Per Protocol; Complete Time: [facility] 03/30 09:43 Order name: O2 Sat Monitoring; Complete Time: 10: [facility] EC:57 Rate is 76 beats/min. Rhythm is regular. QRS Veblen is Normal. CO interval is normal. QRS edda interval is normal. QT interval is normal. No Q waves. T waves are Normal. No ST changes noted. Clinical impression: NSR w/ Non-specific ST/T Changes and No evidence of ischemia. Interpreted by me. Reviewed by me. Administered Medications: 10:07 Drug: NS 0.9% IV 1000 ml IV at 1 bolus Per protocol; 1000 mL bolus Route: IV; Rate: 1 rs5 bolus; Site: right antecubital; 10:30 Follow up: Response: No adverse reaction rs5 11:05 Follow up: Response: No adverse reaction; IV Status: Completed infusion rs5 10:25 Drug: Insulin Regular Human IVP 8 units IVP once Route: IVP; Site: right forearm; rs5 10:52 Follow up: Response: No adverse reaction rs5 10:25 Drug: Insulin Glargine Sub-Q 25 units Sub-Q once Route: Sub-Q; Site: abdomen; rs5 10:51 Follow up: Response: No adverse reaction rs5 12:55 Drug: Rocephin IV 1 grams IV at per protocol once; Given slow IV push per pharmacy ap3 instructions Route: IV; Rate: per protocol; Site: right forearm; 13:05 Follow up: Response: No adverse reaction rs5 Disposition Summary: 03/30/24 12:57 Hospitalization Ordered Notes: Hospitalization Status: Observation edda Provider: Hermilo Moss cha Condition: Stable edda Problem: new edda Symptoms: have improved edda Bed/Room Type: Standard edda Location: Telemetry/MedSurg (observation)(03/30/24 15:40) bd Room Assignment: 203(03/30/24 16:25) as6 Diagnosis - Type 2 diabetes mellitus with hyperglycemia edda - Weakness edda - Dementia in other diseases classified elsewhere without behavioral disturbance edda - History of falling edda - Fall on same level, unspecified edda - UTI/ Urinary tract infection, site not specified edda Forms: - Medication Reconciliation Form edda - SBAR form edda - Leadership Thank You Letter [facility] Signatures: Dispatcher [employer] EDMS LamontFrancheska Tamir Romo MD MD cha Prokisch, Amanda RN RN ap3 Abran Perez, BARBARA RN as6 Chris Coelho, RN RN rs5 Corrections: (The following items were deleted from the chart) 09:43 09:43 BASIC METABOLIC PANEL+C.LAB.BRZ ordered. EDMS EDMS 09:43 09:43 CBC+H.LAB.BRZ ordered. EDMS EDMS 09:43 09:43 HEPATIC FUNCTION+C.LAB.BRZ ordered. EDMS EDMS 09:43 09:43 MAGNESIUM+C.LAB.BRZ ordered. EDMS EDMS 09:43 09:43 PROBNP+C.LAB.BRZ ordered. EDMS EDMS 09:43 09:43 PROTIME (+INR)+COAG.LAB.BRZ ordered. EDMS EDMS 09:43 09:43 Troponin High Sensitivity+C.LAB.BRZ ordered. EDMS EDMS 09:43 09:43 LIPASE+C.LAB.BRZ ordered. EDMS EDMS 09:43 09:43 Urinalysis+U.LAB.BRZ ordered. EDMS EDMS 09:43 09:43 VALPROIC ACID (DEPAKOTE)+C.LAB.BRZ ordered. EDMS EDMS 09:43 09:43 Head C Spine Cap Wo Con+CT.RAD.BRZ ordered. EDMS EDMS 13:51 12:57 Telemetry/MedSurg (observation) [facility] bd 13:51 12:57 [facility] bd 15:40 13:51 [facility] ER HOLD bd bd 15:40 13:51 ERHOLD- bd bd 16:25 15:40 231 bd as6
--- NOTE | 2024-03-30 12:58 | ER ---
Nurse's Notes [facility] Name: Cora Moon Age: 78 yrs Sex: Female : 1945 Arrival Date: 03/30/2024 Time: 09:36 Bed 18 Private MD: Diagnosis: Type 2 diabetes mellitus with hyperglycemia;Weakness;Dementia in other diseases classified elsewhere without behavioral disturbance;History of falling;Fall on same level, unspecified;UTI/ Urinary tract infection, site not specified Presentation: 03/30 09:41 Chief complaint: EMS states: "Fell at longterm on her left side, blood sugars read rs5 "high"". Coronavirus screen: At this time, the client does not indicate any symptoms associated with coronavirus-19. Ebola Screen: No symptoms or risks identified at this time. Initial Sepsis Screen: Does the patient meet any 2 criteria? No. Patient's initial sepsis screen is negative. Does the patient have a suspected source of infection? No. Patient's initial sepsis screen is negative. Risk Assessment: Do you want to hurt yourself or someone else? Patient reports no desire to harm self or others. Onset of symptoms was March 30, 2024. 09:41 Method Of Arrival: EMS: [facility] rs5 09:41 Acuity: DERRICK 3 rs5 Triage Assessment: 09:44 General: Appears in no apparent distress. uncomfortable, Behavior is calm, cooperative. rs5 Pain: Complains of pain in left side. Historical: - Allergies: 09:44 PENICILLINS; rs5 - PMHx: 09:44 Anxiety; DYSPHAGIA; Diabetes - NIDDM; Dementia; Hypertensive disorder; MUSCLE WEAKNESS; rs5 - PSHx: 09:44 None; rs5 - Immunization history:: Adult Immunizations up to date. - Infectious Disease History:: Denies. - Social history:: Smoking status: unknown. - Family history:: not pertinent. Screenin:44 [facility] ED Fall Risk Assessment (Adult) History of falling in the last 3 months, rs5 including since admission Yes- single mechanical fall (1 pt) Confusion or Disorientation Yes (5 pts) Intoxicated or Sedated No (0 pts) Impaired Gait Yes (1 pt) Mobility Assist Device Used Yes (1 pt) Altered Elimination No (0 pt) Score/Fall Risk Level 0 - 2 = Low Risk Oriented to surroundings, Maintained a safe environment, Educated pt \\T\\ family on fall prevention, incl call for assistance when getting out of bed, Hourly rounding (assess needs \\T\\ fall precautionary measures) done. Abuse screen: Denies threats or abuse. Nutritional screening: No deficits noted. Tuberculosis screening: No symptoms or risk factors identified. Assessment: 09:45 General: Appears in no apparent distress. uncomfortable, Behavior is calm, cooperative. rs5 Pain: Complains of pain in left mid back Noted to be no facial grimacing noted. pt states "my lower back hurts only a little". pt oriented to person and place, unable to use pain scale. 09:45 Neuro: Level of Consciousness is awake, alert, obeys commands, Oriented to person, rs5 place. Cardiovascular: Patient's skin is warm and dry. Rhythm is regular. Respiratory: Airway is patent Respiratory effort is even, unlabored, Respiratory pattern is regular, symmetrical. GI: Abdomen is round non-distended, Abd is soft and non tender X 4 quads. : No signs and/or symptoms were reported regarding the genitourinary system. EENT: No signs and/or symptoms were reported regarding the EENT system. Derm: Skin is intact, Skin is pink, warm \\T\\ dry. redness noted to left mid back. Musculoskeletal: Range of motion: intact in all extremities. 10:55 Reassessment: No changes from previously documented assessment. rs5 12:05 Reassessment: Patient and/or family updated on plan of care and expected duration. Pain rs5 level reassessed. Patient is alert, oriented x 3, equal unlabored respirations, skin warm/dry/pink. Patient denies pain at this time. 13:10 Reassessment: No changes from previously documented assessment. rs5 Vital Signs: 09:45 BP 111 / 60; Pulse 73; Resp 18; Temp 97.8(O); Pulse Ox 99% on R/A; rs5 11:05 BP 117 / 65; Pulse 74; Resp 18; Pulse Ox 98% on R/A; rs5 13:05 BP 115 / 66; Pulse 76; Resp 17; Pulse Ox 99% on R/A; rs5 Ilana Coma Score: 12:47 Eye Response: spontaneous(4). Motor Response: localizes pain(5). Verbal Response: edda confused(4). Total: 13. ED Course: 09:41 Patient arrived in ED. edda 09:41 Chris Coelho, BARBARA is Primary Nurse. rs5 09:41 Tamir Ferris MD is Attending Physician. edda 09:44 Triage completed. rs5 09:44 Patient has correct armband on for positive identification. Placed in gown. Bed in low rs5 position. Call light in reach. Side rails up X2. 09:58 CT Traumagram (Head C Spine CAP wo con) In Process Unspecified. EDMS 10:06 XRAY Chest (1 view) In Process Unspecified. EDMS 10:10 Troponin HS Sent. bp 10:10 PT-INR Sent. bp 10:10 NT PRO-BNP Sent. bp 10:10 Magnesium Sent. bp 10:10 LFT's Sent. bp 10:10 CBC with Diff Sent. bp 10:10 Basic Metabolic Panel Sent. bp 10:10 Maintain EMS IV. Dressing intact. Good blood return noted. Site clean \\T\\ dry. Gauge \\T\\ bp site: R FA 18. 10:15 No provider procedures requiring assistance completed. rs5 12:56 Hermilo Moss is Hospitalizing Provider. edda 13:30 Patient admitted, IV remains in place. rs5 Administered Medications: 10:07 Drug: NS 0.9% IV 1000 ml IV at 1 bolus Per protocol; 1000 mL bolus Route: IV; Rate: 1 rs5 bolus; Site: right antecubital; 10:30 Follow up: Response: No adverse reaction rs5 11:05 Follow up: Response: No adverse reaction; IV Status: Completed infusion rs5 10:25 Drug: Insulin Regular Human IVP 8 units IVP once Route: IVP; Site: right forearm; rs5 10:52 Follow up: Response: No adverse reaction rs5 10:25 Drug: Insulin Glargine Sub-Q 25 units Sub-Q once Route: Sub-Q; Site: abdomen; rs5 10:51 Follow up: Response: No adverse reaction rs5 12:55 Drug: Rocephin IV 1 grams IV at per protocol once; Given slow IV push per pharmacy ap3 instructions Route: IV; Rate: per protocol; Site: right forearm; 13:05 Follow up: Response: No adverse reaction rs5 Medication: 12:05 VIS not applicable for this client. rs5 Outcome: 12:57 Decision to Hospitalize by Provider. edda 13:30 Admitted to ER Hold. Please see [facility] for further documentation. rs5 13:30 Condition: stable 13:30 Discharge instructions given to patient, family, Instructed on the need for admit, Demonstrated understanding of instructions, 16:38 Patient left the ED. rs5 Signatures: Dispatcher [employer] EDTamir Orellana MD MD cha Peltier, Brian, RN RN bp Carlotta Miranda RN RN ap3 Chris Coelho RN RN rs5 Corrections: (The following items were deleted from the chart) 10:11 10:10 Maintain EMS IV. Dressing intact. Good blood return noted. Site clean \\T\\ dry. bp Gauge \\T\\ site: L FA 18. bp 11:23 11:22 Insulin Regular Human IVP 8 units IVP in right forearm rs5 rs5 11:23 11:22 Insulin Glargine Sub-Q 25 units Sub-Q in abdomen rs5 rs5
[2024-03-30] MEDS ORDERED: ONDANSETRON 4 MG (ODT) TAB PO PRN (14:15)
[2024-03-30] MEDS: MORPHINE 2 MG/ML SYR IV ONE ×2 (14:21→15:15)
--- NOTE | 2024-03-30 14:37 | P.HP ---
Certification for Inpatient Patient admitted to: Inpatient With expected LOS: >2 Midnights Practitioner: I am a practitioner with admitting privileges, knowledge of patient current condition, hospital course, and medical plan of care. Services: Services provided to patient in accordance with Admission requirements found in Title 42 Section 412.3 of the Code of Federal Regulations Patient History Date of Service: 03/30/24 Reason for admission: UTI, hyperglycemia History of Present Illness: Patient is a 78-year-old female with a medical history of Parkinson's, diabetes mellitus type 2 ofe-ovrupap-ohrcmmvwy, hypertension, depression, dementia, anxiety who presented to the ED from alf with complaints of high blood sugar, fall from wheelchair, urinary incontinence. Patient had sustained an injury to the left chest during fall. Patient does not walk she is wheelchair/bedbound. CT head spine chest abdomen pelvis obtained in ED with No acute intracranial abnormality, No acute traumatic abnormality involving the chest, abdomen or pelvis; chronic subcapital fracture of right femur; A cervical fracture is not visualized. Initial ED labs significant for hyperglycemia, she was given 8 units insulin IVP and insulin glargine subcu 25 units. Urinalysis suggestive of UTI, given Rocephin in ED. urine sent for culture. Plan to admit for acute cystitis, hyperglycemia status post fall for further monitoring and management. Allergies No Known Drug Allergies Allergy (Verified 03/30/24 15:23) Home medications list reviewed: Yes Home Medications: Cyclosporine [Restasis] 1 drop EACH EYE TID 08/08/20 Fluoxetine HCl [Prozac] 40 mg PO DAILY 08/08/20 Metformin HCl [Glucophage*] 1 tab PO BID 08/08/20 Metoprolol Tartrate 25 mg PO BID 08/08/20 ARIPiprazole [Aripiprazole] 20 mg PO BEDTIME 08/21/22 Pantoprazole [Protonix Tab*] 40 mg PO 1X 08/21/22 Trazodone [Desyrel*] 25 mg PO DAILY 08/21/22 Donepezil [Aricept] 5 mg PO BEDTIME #30 tab 08/23/22 Hydrocodone 5/APAP 325 [[place] 5/325*] 1 tab PO Q6H PRN #20 tab 08/23/22 Insulin -Regular Human [Novolin -R*] See Protocol SQ ACHS ml 08/23/22 Insulin Degludec [Tresiba Flextouch U-100] 5 unit SQ DAILY #10 ml 08/23/22 Benztropine Mesylate [Cogentin] 0.5 mg PO BEDTIME 03/30/24 Carbidopa/Levodopa [Sinemet 25-100 mg Tablet] 0.5 tab PO TID 03/30/24 Divalproex [Depakote Sprinkle] 125 mg PO BID 03/30/24 Famotidine 20 mg PO DAILY 03/30/24 Insulin Glargine,Hum.rec.anlog [Lantus Solostar] 25 units SQ DAILY 03/30/24 Insulin Regular, Human [Novolin R Flexpen] See Protocol SQ ACHS 03/30/24 Paroxetine HCl [Paxil] 50 mg PO BEDTIME 03/30/24 - Past Medical/Surgical History Diabetic: Yes -: Type 2 diabetes mellitus -: HTN -: herniated disc -: parkinsons diease -: depression -: dementia -: right foot surgery - Social History Smoking Status: Never smoker Alcohol use: No CD- Drugs: Yes Caffeine use: No Place of Residence: Longterm Review of Systems General: Weakness Musculoskeletal: Back Pain (left lower back), Other (left trunk pain) Neurological: Other (parkinson's tremors/spasms) Physical Examination - Physical Exam General: Alert, Oriented x3, Mild distress HEENT: Atraumatic, Normocephalic Respiratory: Clear to auscultation bilaterally, Normal air movement Cardiovascular: No edema, Normal pulses, Regular rate/rhythm Gastrointestinal: Normal bowel sounds, Soft and benign Musculoskeletal: Other (pain left torso) Integumentary: Other (bruising left torso s/p fall) Neurological: Other (parkinsons tremors), Abnormal speech, Dementia - Studies Laboratory Data (last 24 hrs) 03/30/24 03/30/24 03/30/24 10:07 10:07 10:07 WBC 6.30 Hgb 10.8 L Hct 33.8 L Plt Count 290 PT 11.7 INR 1.07 Sodium 133 L Potassium 4.6 BUN 29 H Creatinine 0.85 Glucose 427 H* Magnesium 2.0 Total Bilirubin 0.3 AST 19 ALT 15 Alkaline Phosphatase 53 Lipase 43 Assessment and Plan - Plan Problem list Type 2 diabetes mellitus with hyperglycemia Acute cystitis Fall on same level History of falling Weakness Parkinson's disease Hypertension Depression Anxiety Dementia GERD Type 2 diabetes mellitus with hyperglycemia -Hold home oral antidiabetic agent while inpatient -Glucose 427 on arrival. Given 8 units insulin IVP and 25 units glargine subQ in ED -Accu-Cheks ACHS -Insulin per sliding scale -Diabetic diet Acute cystitis -Patient reporting increased urinary incontinence -Urinalysis suggestive of UTI -Urine culture pending, follow-up with results -On empiric Rocephin IV Fall on same level History of falling Weakness -CT/spine/chest/abdomen/pelvis 03/30: "No acute intracranial abnormality is seen. A cervical fracture is not visualized. If the patient continues to have symptoms to suggest intracranial/spinal cord pathology MRI be recommended. No acute traumatic abnormality involving the chest, abdomen or pelvis. Chronic subcapital fracture right femur" -As needed pain management - Fall precautions Hypertension -Continue home med -EKG normal sinus rhythm with nonspecific ST/T changes and no evidence of ischemia Parkinson's disease Depression/anxiety Dementia - home medications reviewed and verified via alf medication list and confirmation with patient. - continue home meds GERD - resume home pepcid Full code Dispo: halfway in 24 to 48 hours - Advance Directives Does patient have a Living Will: No Does patient have a Durable POA for Healthcare: No
[2024-03-30] MEDS ORDERED: MORPHINE 2 MG/ML SYR ONE (14:55)
[2024-03-30] MEDS: NA CHLORIDE 0.9% 1,000 ML IV SCH (15:00)
[2024-03-30] MEDS: INSULIN REGULAR (HUMAN) 100 UNIT/ML SQ SCH (15:12)
[2024-03-30 15:43] VITALS: BMI 22.1
[2024-03-30] MEDS ORDERED: BENZTROPINE MESYLATE 0.5 MG PO SCH (21:00)
[2024-03-30] MEDS ORDERED: HOME MED 1 EA UNK (Paroxetine Hcl [Paxil] 40 MG Tablet) PO SCH (21:00)
[2024-03-30] MEDS: BENZTROPINE 1 MG TAB PO SCH (21:27)
[2024-03-30] MEDS: ARIPiprazole 5 MG TAB PO SCH (21:27)
[2024-03-30] MEDS: CARBIDOPA/LEVODOPA 25/100 TAB PO SCH (21:28)
[2024-03-30] MEDS: DIVALPROEX NA 125 MG CAP PO SCH (21:28)
[2024-03-30] MEDS: DONEPEZIL HCL 5 MG TAB PO SCH (21:28)
[2024-03-30] MEDS: PARoxetine HCL 10 MG TAB PO SCH (21:29)
[2024-03-30] MEDS: METOPROLOL TAR 25 MG TAB PO SCH (21:29)
[2024-03-30] MEDS ORDERED: D50W 25 GM/50 ML SYRINGE IV PRN (23:21)
[2024-03-30] MEDS: D10W 125 ML IV PRN (23:42)
[2024-03-31 08:10] LABS: Absolute Lymphocytes (CBC) 1.3 K/uL (0.7-4.9); Absolute Monocytes 0.7 K/uL (0.1-1.3); Absolute Neutrophil 4.6 K/uL (1.8-8.0); Basophils % 0.4 % (0-1.3); Eosinophils % 0.4 % (0-4.4); Hematocrit 31.5 % (36.0-45.0); Hemoglobin 10.4 g/dL (12.0-15.0); Lymphocytes % 19.9 % (15.3-44.8); MCH 29.2 pg (27.0-35.0); MCV 88.5 fL (80-100); MPV 7.6 fL (7.6-11.3); Neutrophils % 68.3 % (41.7-73.7); Platelets 279 thou/uL (152-406); RBC Red Blood Cell Count 3.56 M/uL (3.86-4.86); Red Cell Distribution Width 16.2 % (12.1-15.2)
[2024-03-31 08:18] LABS: Anion Gap 4.6 mEq/L (5.0-15.0); Potassium 3.6 mEq/L (3.5-5.1)
[2024-03-31] MEDS ORDERED: HOME MED 1 EA UNK (Famotidine [Famotidine] 10 MG Tablet) PO SCH (09:00)
--- NOTE | 2024-03-31 09:17 | P.PN ---
Date of Service: 03/31/24 Subjective: In no apparent distress. + left torso tenderness + tremors Reports improvement in dysuria No acute events overnight ROS 10 point ROS reviewed and negative except as listed above Physical Exam Temp Pulse Resp BP Pulse Ox 98 F 80 18 135/75 94 03/31/24 04:00 03/31/24 04:00 03/31/24 04:00 03/31/24 04:00 03/31/24 04:00 General: Alert, Oriented x1-2. Hallucinations/intermittent confusion. Thin, frail. HEENT: Atraumatic, Normocephalic Respiratory: Clear to auscultation bilaterally, Normal air movement. Nonlabored respirations on room air. Cardiovascular: No edema, Normal pulses, Regular rate/rhythm Gastrointestinal: Normal bowel sounds, Soft and benign Musculoskeletal: Pain left torso Integumentary: Bruising left torso s/p fall Neurological: Severe tremors, Parkinson's. Dementia Assessment and Plan Problem list Type 2 diabetes mellitus with hyperglycemia Acute cystitis Fall on same level History of falling Weakness Parkinson's disease Hypertension Depression Anxiety Dementia GERD Type 2 diabetes mellitus with hyperglycemia -Hold home oral antidiabetic agent while inpatient -Glucose 427 on arrival. Given 8 units insulin IVP and 25 units glargine subQ in ED -Accu-Cheks ACHS -Insulin per sliding scale -Diabetic diet Acute cystitis -Patient reporting increased urinary incontinence -Urine culture: 4+ gram-negative rods -Follow-up with culture results -On empiric Rocephin IV Fall on same level History of falling Weakness -CT/spine/chest/abdomen/pelvis 03/30: "No acute intracranial abnormality is seen. A cervical fracture is not visualized. If the patient continues to have symptoms to suggest intracranial/spinal cord pathology MRI be recommended. No acute traumatic abnormality involving the chest, abdomen or pelvis. Chronic subcapital fracture right femur" -As needed pain management - Fall precautions Hypertension -Continue home meds Parkinson's disease Depression/anxiety Dementia - home medications reviewed and verified via [facility] medication list and confirmation with patient. - continue home meds -Aspiration precautions GERD - resume home pepcid Full code Dispo: [facility] in 24 to 48 hours
[2024-03-31] MEDS: CEFTRIAXONE 1,000 MG in NA CHLORIDE 0.9% 50 ML IVPB SCH (10:01)
[2024-03-31] MEDS: FAMOTIDINE 20 MG TAB PO SCH (10:03)
--- NOTE | 2024-03-31 13:11 | EKG ---
Test Date: 2024-03-30 Test Time: 10:10:49 Tow Feeder: HALI MEASUREMENT RESULTS: Intervals: Rate: 76 LA: 134 QRSD: 76 QT: 396 QTc: 445 [place]: P: 82 LA: 134 QRS: 72 T: 74 INTERPRETIVE STATEMENTS: Sinus rhythm with premature atrial complexes Nonspecific T wave abnormality Abnormal ECG Compared to ECG 09/13/2023 11:33:34 Atrial premature complex(es) now present T-wave abnormality now present Atrial flutter no longer present Ventricular premature complex(es) no longer present Electronically Signed On 03-31-24 13:06:29 CDT by Neftali Vu
[2024-03-31] MEDS: ACETAMINOPHEN 325 MG TABLET PO PRN (14:31)
[2024-04-01 04:38] LABS: Absolute Eosinophils 0.1 K/uL (0-0.5); Absolute Lymphocytes (CBC) 1.4 K/uL (0.7-4.9); Absolute Monocytes 0.8 K/uL (0.1-1.3); Absolute Neutrophil 4.7 K/uL (1.8-8.0); Basophils % 0.6 % (0-1.3); Hematocrit 30.7 % (36.0-45.0); Hemoglobin 10.2 g/dL (12.0-15.0); Lymphocytes % 19.6 % (15.3-44.8); MCH 29.4 pg (27.0-35.0); MCHC 33.3 g/dL (32.0-36.0); MCV 88.3 fL (80-100); MPV 8.3 fL (7.6-11.3); Monocytes % 11.5 % (3.3-12.3); Neutrophils % 67.3 % (41.7-73.7); Platelets 271 thou/uL (152-406); RBC Red Blood Cell Count 3.48 M/uL (3.86-4.86); Red Cell Distribution Width 16.4 % (12.1-15.2)
[2024-04-01 04:44] LABS: Anion Gap 7.9 mEq/L (5.0-15.0); Potassium 3.9 mEq/L (3.5-5.1)
--- NOTE | 2024-04-01 07:35 | P.PN ---
Date of Service: 04/01/24 Subjective: No acute events reported overnight. Improving In no apparent distress. + left torso pain. otherwise no new/worsening complaints ROS: 10 point ROS reviewed and negative except as listed above Urine growing E.coli ESBL, started on Meropenem. Physical Exam Temp Pulse Resp BP Pulse Ox 97.8 F 78 18 158/79 H 91 04/01/24 04:00 04/01/24 04:00 04/01/24 04:00 04/01/24 04:00 04/01/24 04:00 General: Alert, Oriented x1-2. Hallucinations/intermittent confusion. Thin, frail. HEENT: Atraumatic, Normocephalic Respiratory: Clear to auscultation bilaterally, Normal air movement. Nonlabored respirations on room air. Cardiovascular: No edema, Normal pulses, Regular rate/rhythm Gastrointestinal: Normal bowel sounds, Soft and benign Musculoskeletal: Pain left torso Integumentary: Bruising left torso s/p fall Neurological: Severe tremors, Parkinson's. Dementia Assessment and Plan Problem list Type 2 diabetes mellitus with hyperglycemia Acute cystitis Fall on same level History of falling Weakness Parkinson's disease Hypertension Depression Anxiety Dementia GERD Moderate protein-calorie malnutrition Type 2 diabetes mellitus with hyperglycemia -Hold home oral antidiabetic agent while inpatient -Glucose 427 on arrival. Given 8 units insulin IVP and 25 units glargine subQ in ED -Accu-Cheks ACHS -Insulin per sliding scale -Diabetic diet Acute cystitis, E.coli ESBL -Patient reporting increased urinary incontinence -Urine culture: Escherichia coli ESBL -Previously on Rocephin --> started on meropenem following culture results 04/01 - Continue for 7 days (04/01-04/06). - Midline ordered. Plan for Ertapenem 1g IV Q24H at halfway Fall on same level History of falling - Bedbound /wheelchair bound -CT/spine/chest/abdomen/pelvis 03/30: "No acute intracranial abnormality is seen. A cervical fracture is not visualized. If the patient continues to have symptoms to suggest intracranial/spinal cord pathology MRI be recommended. No acute traumatic abnormality involving the chest, abdomen or pelvis. Chronic subcapital fracture right femur" -As needed pain management - Fall precautions Hypertension -Continue home meds Parkinson's disease Depression/anxiety Dementia - home medications reviewed and verified via halfway medication list and confirmation with patient. - continue home meds protein-calorie malnutrition cachectic -Aspiration precautions -Speech therapy evaluation-mechanical soft diet, thin liquids - nutritional supplementation GERD - resume home pepcid Full code SCDs Dispo: alf in 24
[2024-04-01] MEDS ORDERED: Meropenem 1,000 MG in NA CHLORIDE 0.9% 100 ML IV SCH (09:00)
[2024-04-01] MEDS: Meropenem 1,000 MG in NA CHLORIDE 0.9% 100 ML IV SCH (09:20)
[2024-04-01] MEDS ORDERED: INSULIN GLARGINE 100 UNIT/ML SQ SCH (18:13)
[2024-04-01] MEDS: INSULIN REGULAR (HUMAN) 100 UNIT/ML SQ SCH (21:34)
[2024-04-01] MEDS: FAMOTIDINE 20 MG TAB PO SCH (21:36)
[2024-04-01 23:01] VITALS: O2SAT 91
[2024-04-02] MEDS: INSULIN GLARGINE 100 UNIT/ML SQ SCH (08:46)
[2024-04-02 10:03] LABS: Anion Gap 13.1 mEq/L (5.0-15.0); Potassium 4.1 mEq/L (3.5-5.1)
[2024-04-02] MEDS ORDERED: ERTAPENEM SODIUM 1 GM VIAL IVPB SCH (15:00)
[2024-04-02] MEDS: ERTAPENEM NA 1 GM in NA CHLORIDE 0.9% 100 ML IVPB ONE (17:18)
--- NOTE | 2024-04-02 19:19 | P.DS ---
Admission Date: 03/30/24 Discharge Date: 04/02/24 Disposition: TRANSFER TO JAIL Discharge Condition: GOOD Reason for Admission: UTI, hyperglycemia Brief History of Present Illness: Patient is a 78-year-old female with a medical history of Parkinson's, diabetes mellitus type 2 [id number], hypertension, depression, dementia, anxiety who presented to the ED from long-term with complaints of high blood sugar, fall from wheelchair, urinary incontinence. Patient had sustained an injury to the left chest during fall. Patient does not walk she is wheelchair/bedbound. CT head spine chest abdomen pelvis obtained in ED with No acute intracranial abnormality, No acute traumatic abnormality involving the chest, abdomen or pelvis; chronic subcapital fracture of right femur; A cervical fracture is not visualized. Initial ED labs significant for hyperglycemia, she was given 8 units insulin IVP and insulin glargine subcu 25 units. Urinalysis suggestive of UTI, given Rocephin in ED. urine sent for culture. Plan to admit for acute cystitis, hyperglycemia status post fall for further monitoring and management. Hospital Course: Problem list Type 2 diabetes mellitus with hyperglycemia Acute cystitis-ESBL E. coli Fall on same level History of falling Weakness Parkinson's disease Hypertension Depression Anxiety Dementia GERD Moderate protein-calorie malnutrition Patient was admitted to the hospital for UTI, AMS. She was initially started on empiric Rocephin, on 04/01 urine culture returned with E. coli ESBL and she was started on meropenem. Midline catheter was inserted and patient to be switched to ertapenem 1 g IV every 24 hours through 04/06 for total of 7 days. Patient also tolerated mechanical soft diet with thin liquids. Recommend continuation of home medications, safe to discharge back to long-term. Vital Signs/Physical Exam: Temp Pulse Resp BP Pulse Ox 98.2 F 77 18 125/59 L 92 04/02/24 12:00 04/02/24 12:00 04/02/24 12:00 04/02/24 12:04/02/24 12:00 General: Alert, In no apparent distress, Oriented x2, Other (frail) HEENT: Atraumatic, PERRLA Neck: Supple, JVD not distended Respiratory: Clear to auscultation bilaterally, Normal air movement Cardiovascular: Regular rate/rhythm, Normal S1 S2 Gastrointestinal: Normal bowel sounds, No tenderness Musculoskeletal: No tenderness Integumentary: No rashes Neurological: Normal speech, Normal tone, Normal affect Laboratory Data at Discharge: WBC 7.00 thou/uL (4.3-10.9) 04/01/24 04:04 Hgb 10.2 g/dL (12.0-15.0) L 04/01/24 04:04 Hct 30.7 % (36.0-45.0) L 04/01/24 04:04 Plt Count 271 thou/uL (152-406) 04/01/24 04:04 PT 11.7 SECONDS (9.5-12.5) 03/30/24 10:07 INR 1.07 03/30/24 10:07 Sodium 140 mEq/L (136-145) 04/02/24 06:53 Potassium 4.1 mEq/L (3.5-5.1) 04/02/24 06:53 BUN 20 mg/dL (7-18) H 04/02/24 06:53 Creatinine 0.63 mg/dL (0.55-1.02) 04/02/24 06:53 Glucose 276 mg/dL (74-106) H 04/02/24 06:53 Magnesium 2.0 mg/dL (1.6-2.4) 03/30/24 10:07 Total Bilirubin 0.3 mg/dL (0.2-1.0) 03/30/24 10:07 AST 19 U/L (15-37) 03/30/24 10:07 ALT 15 U/L (13-56) 03/30/24 10:07 Alkaline Phosphatase 53 U/L (45-117) 03/30/24 10:07 Lipase 43 U/L (13-75) 03/30/24 10:07 Home Medications: Cyclosporine [Restasis] 1 drop EACH EYE TID 08/08/20 Fluoxetine HCl [Prozac] 40 mg PO DAILY 08/08/20 Metformin HCl [Glucophage*] 1 tab PO BID 08/08/20 Metoprolol Tartrate 25 mg PO BID 08/08/20 ARIPiprazole [Aripiprazole] 20 mg PO BEDTIME 08/21/22 Pantoprazole [Protonix Tab*] 40 mg PO 1X 08/21/22 Trazodone [Desyrel*] 25 mg PO DAILY 08/21/22 Donepezil [Aricept*] 5 mg PO BEDTIME #30 tab 08/23/22 Hydrocodone 5/APAP 325 [[place] 5/325*] 1 tab PO Q6H PRN #20 tab 08/23/22 Insulin -Regular Human [Novolin -R*] See Protocol SQ ACHS ml 08/23/22 Insulin Degludec [Tresiba Flextouch U-100] 5 unit SQ DAILY #10 ml 08/23/22 Benztropine Mesylate [Cogentin] 0.5 mg PO BEDTIME 03/30/24 Carbidopa/Levodopa [Sinemet 25-100 mg Tablet] 0.5 tab PO TID 03/30/24 Divalproex [Depakote Sprinkle*] 125 mg PO BID 03/30/24 Famotidine 20 mg PO DAILY 03/30/24 Insulin Glargine,Hum.rec.anlog [Lantus Solostar] 25 units SQ DAILY 03/30/24 Insulin Regular, Human [Novolin R Flexpen] See Protocol SQ ACHS 03/30/24 Paroxetine HCl [Paxil] 50 mg PO BEDTIME 03/30/24 Physician Discharge Instructions: Patient was admitted to the hospital for UTI, AMS. She was initially started on empiric Rocephin, on 04/01 urine culture returned with E. coli ESBL and she was started on meropenem. Midline catheter was inserted and patient to be switched to ertapenem 1 g IV every 24 hours through 04/06 for total of 7 days. Patient also tolerated mechanical soft diet with thin liquids. Recommend continuation of home medications, safe to discharge back to long-term. Diet: ADA Activity: Fall precautions Followup: Ladi Townsend MD [Primary Care Provider] - 1-2 Weeks Time spent managing pt's care (in minutes): 30
[2024-04-02] MEDS ORDERED: INSULIN REGULAR (HUMAN) 100 UNIT/ML SQ SCH (21:00)
[2024-04-03 14:34] VITALS: BP 157/70; TEMP 97.9
== END 2024-04-02 20:45 | DRG 638 ==
LOC: ER 09:36 → ERHOLD 13:58 → 2ND 16:29
PROVIDERS: ADMIT Internal Medicine; ATTEND Internal Medicine
PROC: 02HV33Z Insertion of Infusion Device into Superior Vena Cava, Percutaneous Approach (ICD-10-PCS; principal; 2024-04-01)
DX: E11.65 Type 2 diabetes mellitus with hyperglycemia (principal); E44.0 Moderate protein-calorie malnutrition; F02.83 Dementia in other diseases classified elsewhere, unspecified severity, with mood disturbance; F02.84 Dementia in other diseases classified elsewhere, unspecified severity, with anxiety; N30.00 Acute cystitis without hematuria; Z16.12 Extended spectrum beta lactamase (ESBL) resistance; R64 Cachexia; I10 Essential (primary) hypertension; K21.9 Gastro-esophageal reflux disease without esophagitis; F41.9 Anxiety disorder, unspecified; B96.20 Unspecified Escherichia coli [E. coli] as the cause of diseases classified elsewhere; S72.011D Unspecified intracapsular fracture of right femur, subsequent encounter for closed fracture with routine healing; R29.6 Repeated falls; R13.10 Dysphagia, unspecified; R32 Unspecified urinary incontinence; Z88.0 Allergy status to penicillin; Z99.3 Dependence on wheelchair; Z79.4 Long term (current) use of insulin; Z91.81 History of falling; Z74.01 Bed confinement status; Z68.22 Body mass index [BMI] 22.0-22.9, adult; Z79.84 Long term (current) use of oral hypoglycemic drugs; Z79.899 Other long term (current) drug therapy; W05.0XXA Fall from non-moving wheelchair, initial encounter; Y92.129 Unspecified place in nursing home as the place of occurrence of the external cause; Y93.9 Activity, unspecified; Y99.9 Unspecified external cause status
CPT/HCPCS: 36415; 70450; 71045; 71250; 72125; 80048; 80076; 80164; 81001; 82947; 83690; 83735; 83880; 84484; 85025; 85610; 87077; 87086; 87088; 87186; 92610; 93005; 96361; 96372; 96374; 96375; 99285; J0696; J1335; J1815; J2185; J2270; J7030

== ENCOUNTER 2024-04-09 10:57 | Observation (INO) | payer OTHER ==
[2024-04-09 11:28] LABS: Absolute Eosinophils 0.1 K/uL (0-0.5); Absolute Lymphocytes (CBC) 1.3 K/uL (0.7-4.9); Absolute Monocytes 0.5 K/uL (0.1-1.3); Absolute Neutrophil 4.9 K/uL (1.8-8.0); Basophils % 0.6 % (0-1.3); Eosinophils % 1.7 % (0-4.4); Hematocrit 37.3 % (36.0-45.0); Hemoglobin 12.1 g/dL (12.0-15.0); Lymphocytes % 18.9 % (15.3-44.8); MCH 28.9 pg (27.0-35.0); MCHC 32.5 g/dL (32.0-36.0); MCV 89.1 fL (80-100); MPV 7.6 fL (7.6-11.3); Monocytes % 6.7 % (3.3-12.3); Neutrophils % 72.1 % (41.7-73.7); Platelets 390 thou/uL (152-406); RBC Red Blood Cell Count 4.18 M/uL (3.86-4.86); Red Cell Distribution Width 15.9 % (12.1-15.2)
[2024-04-09 11:45] LABS: Specific Gravity 1.028 (1.005-1.030); Sqamous Epithelial <5 /HPF (None Seen); Urine Bacteria None Seen /HPF (<20); Urine Bilirubin NEGATIVE (Negative); Urine Blood Negative (Negative); Urine Clarity Clear (Clear); Urine Color Light-Yellow (Yellow); Urine Culture Reflex Order NOT NEEDED; Urine Glucose 4+ (Over) (Negative); Urine Ketones 1+ (Negative); Urine Micro Reflex YN NO BILL MICROSCOPIC; Urine Nitrite NEGATIVE (Negative); Urine Protein NEGATIVE (Negative); Urine RBC <5 /HPF (None Seen); Urine Urobilinogen Normal (Normal); Urine WBC <5 /HPF (<5)
[2024-04-09 11:47] LABS: Albumin 2.6 g/dL (3.4-5.0); Albumin/Globulin Ratio 0.5 (1.1-1.8); Alkaline Phosphatase 109 U/L (45-117); Anion Gap 9.1 mEq/L (5.0-15.0); BUN Blood Urea Nitrogen 16 mg/dL (7-18); Bicarbonate 29 mEq/L (21-32); Bilirubin Total 0.3 mg/dL (0.2-1.0); Globulin 4.9 g/dL (2.3-3.5); Glomerular Filtration Rate 91 ml/min (=/>90); Glucose Level 197 mg/dL (74-106); Potassium 4.1 mEq/L (3.5-5.1); Protein, Total 7.5 g/dL (6.4-8.2); Sodium Level 134 mEq/L (136-145)
[2024-04-09 11:52] LABS: ALT/SGPT < 14 U/L (13-56); AST/SGOT < 10 U/L (15-37); Bilirubin Direct < 0.2 mg/dL (0-0.2); Bilirubin Indirect, Calculated 0.1 mg/dL (0.2-0.8)
--- NOTE | 2024-04-09 12:13 | RAD REPORT ---
EXAM DESCRIPTION: RADChest Single View04/09/2024 11:41 am CLINICAL HISTORY: CHEST PAIN COMPARISON: Chest Single View dated 03/30/2024; Chest Single View dated 12/31/2023; Chest Single View dated 09/13/2023; Chest Single View dated 08/30/2023; Head C Spine Cap Wo Con dated 03/30/2024 TECHNIQUE: Portable AP view of the chest. FINDINGS: The right lung is clear. Consolidative opacity in the retrocardiac space obscuring the lef t diaphragmatic dome. Possible small left pleural effusion. No pneumothorax or sizable effusion. The cardiomediastinal contours are unremarkable. IMPRESSION: Developing retrocardiac/left basilar airspace opacity, concerning for pneumonia.
--- NOTE | 2024-04-09 12:15 | RAD REPORT ---
EXAM DESCRIPTION: CT - Head Brain Wo Cont - 04/09/2024 11:54 am CLINICAL HISTORY: CONFUSED COMPARISON: Head Brain Wo Cont dated 08/08/2020; Facial Bones W/ Mpr dated 01/25/2018; Head C Spine Cap Wo Con dated 03/30/2024 TECHNIQUE: Noncontrast head CT images were obtained without IV contrast. Multiplanar reformats were generated and reviewed. All CT scans are performed using dose optimization technique as appropriate and may include automated exposure control or mA/KV adjustment according to patient size. FINDINGS: No intracranial hemorrhage, mass, or edema. Midline structures are unremarkable. Stable ventricular caliber. Mild diffuse parenchymal volume loss. Patchy periventricular and deep white matter hypodensities, not significantly changed in extent mariano red to the most recent prior. These are nonspecific but most suggestive of chronic small vessel ische scar changes. Borges-white matter differentiation is preserved, without evidence of acute infarct. No abnormal extra- axial fluid collections. Mastoid air cells and visualized portions of the paranasal sinuses are clear. No acute bony findings. IMPRESSION: No evidence of an acute intracranial process. Stable chronic findings as above.
[2024-04-09] MEDS ORDERED: AZITHROMYCIN 500 MG INJ IVPB ONE (12:22)
[2024-04-09] MEDS ORDERED: CEFTRIAXONE 1000 MG/VIAL ONE (12:22)
[2024-04-09] MEDS ORDERED: NA CHLORIDE 0.9% 250 ML ONE (12:22)
--- NOTE | 2024-04-09 12:26 | ER ---
Nurse's Notes [facility] Name: Cora Moon Age: 78 yrs Sex: Female : 1945 Arrival Date: 04/09/2024 Time: 10:57 Bed 7 Private MD: Diagnosis: Unspecified bacterial pneumonia Presentation: 04/09 11:01 Chief complaint: EMS states: "toned out for low oxygen at 60% on RA, increases AMS, and mb9 cool to touch at [facility]. BGL 276, placed pt on non-re breather and SPO2 increased to 100%.". Coronavirus screen: Vaccine status: Patient reports receiving the 2nd dose of the covid vaccine. Ebola Screen: No symptoms or risks identified at this time. Initial Sepsis Screen: Does the patient meet any 2 criteria? No. Patient's initial sepsis screen is negative. Does the patient have a suspected source of infection? No. Patient's initial sepsis screen is negative. Risk Assessment: Do you want to hurt yourself or someone else? Patient reports no desire to harm self or others. Onset of symptoms was April 09, 2024. 11:01 Method Of Arrival: EMS: [facility] mb9 11:01 Acuity: DERRICK 2 mb9 Triage Assessment: 11:06 General: Appears uncomfortable, ill, slender, malnourished, Behavior is cooperative, mb9 quiet. Pain: Unable to use pain scale. Does not appear to understand pain scale. EENT: No signs and/or symptoms were reported regarding the EENT system. Neuro: Level of Consciousness is lethargic, Oriented to person. Cardiovascular: Heart tones S1 S2 present Patient's skin is warm and dry. Respiratory: Airway is patent Respiratory effort is even, unlabored, Respiratory pattern is regular, symmetrical, Breath sounds are clear bilaterally. GI: Abdomen is flat, non-distended, Bowel sounds present X 4 quads. Abd is soft and non tender X 4 quads. : No signs and/or symptoms were reported regarding the genitourinary system. Derm: Skin is fragile, is thin, Skin is dry, Skin is pale, Skin temperature is cool. Musculoskeletal: Range of motion: intact in all extremities. Historical: - Allergies: 11:03 PENICILLINS; mb9 - Home Meds: 11:03 aripiprazole 10 mg Oral tablet 1 tab every day at bedtime [Active]; ascorbic acid mb9 (vitamin C) 500 mg tablet 2 times per day [Active]; buspirone 5 mg Oral tablet 1 tab 3 times per day [Active]; donepezil 5 mg Oral tablet every day at bedtime [Active]; famotidine 20 mg Oral tablet daily [Active]; Lantus U-100 Insulin 100 unit/mL Sub-Q solution 25 units daily [Active]; metformin 1 Oral tablet 1 tab 2 times per day [Active]; metoprolol tartrate 25 mg Oral tablet 2 times per day [Active]; Novolin R Sub-Q [Active]; Paxil 40 mg Oral tablet 1 tab daily [Active]; Restasis 0.05 % ophthalmic (eye) Dropperette 1 drop 2 times per day [Active]; zinc sulfate 50 mg zinc (220 mg) Oral capsule 1 cap daily [Active]; - PMHx: 11:03 Anxiety; Hypertensive disorder; Diabetes - NIDDM; Dementia; DYSPHAGIA; MUSCLE WEAKNESS; mb9 cognitive communication deficit; - Immunization history:: Adult Immunizations up to date. - Infectious Disease History:: Denies. - Social history:: Smoking status: unknown. Screenin:08 [facility] ED Fall Risk Assessment (Adult) History of falling in the last 3 months, mb9 including since admission Yes- fall prone (multiple falls) (3 pts) Confusion or Disorientation Yes (5 pts) Intoxicated or Sedated No (0 pts) Impaired Gait Yes (1 pt) Mobility Assist Device Used Yes (1 pt) Altered Elimination Yes (1 pt) Score/Fall Risk Level 3 or more points = High Risk Oriented to surroundings, Maintained a safe environment, Educated pt \\T\\ family on fall prevention, incl call for assistance when getting out of bed, Assessed \\T\\ reinforced patient's understanding of fall precautions, Provided non-skid footwear, Hourly rounding (assess needs \\T\\ fall precautionary measures) done. Abuse screen: Denies threats or abuse. Nutritional screening: No deficits noted. Tuberculosis screening: No symptoms or risk factors identified. Assessment: 11:08 Reassessment: see triage assessment. mb9 12:00 Reassessment: No changes from previously documented assessment. Patient and/or family mb9 updated on plan of care and expected duration. Pain level reassessed. 12:00 Reassessment: No changes from previously documented assessment. Patient and/or family mb9 updated on plan of care and expected duration. Pain level reassessed. 13:00 Reassessment: ADMIT INITIATED. bp 14:00 Reassessment: Patient appears in no apparent distress at this time. No changes from mb9 previously documented assessment. Patient and/or family updated on plan of care and expected duration. Pain level reassessed. 14:20 Reassessment: REPORT FAXED TO [facility] FOR RM 219. bp Vital Signs: 11:01 BP 116 / 66; Pulse 67; Resp 15; Temp 98.3(A); Pulse Ox 100% on R/A; Weight 58.97 kg; mb9 Height 5 ft. 4 in. ; 11:50 BP 115 / 63; Pulse 70; Resp 14; Pulse Ox 100% on R/A; mb9 12:59 BP 111 / 57; Pulse 76; Resp 15; Pulse Ox 100% ; bp 13:41 BP 105 / 68; Pulse 69; Resp 16; Pulse Ox 97% on R/A; mb9 14:38 BP 116 / 66; Pulse 74; Resp 16; Pulse Ox 96% on R/A; mb9 11:01 Body Mass Index 22.31 (58.97 kg, 162.56 cm) mb9 ED Course: 11:01 Patient arrived in ED. mb9 11:01 Arm band placed on. mb9 11:02 Robert Mcdonald MD is Attending Physician. ec2 11:03 Triage completed. mb9 11:07 EKG done, by ED staff, reviewed by Robert Mcdonald MD. Maintain EMS IV. Dressing intact. mb9 Good blood return noted. Site clean \\T\\ dry. Gauge \\T\\ site: 20g left AC. 11:08 Nsisa Prather, BARBARA is Primary Nurse. mb9 11:08 Provided Education on: press call light if needing anything. mb9 11:08 Placed in gown. Bed in low position. Call light in reach. Side rails up X 1. Client mb9 placed on continuous cardiac and pulse oximetry monitoring. NIBP monitoring applied. campus monitor on. Door closed. Noise minimized. Warm blanket given. Pillow given. 11:08 No provider procedures requiring assistance completed. mb9 11:20 CBC with Diff Sent. bp 11:20 Basic Metabolic Panel Sent. bp 11:20 Troponin HS Sent. bp 11:35 Straight cath inserted, using sterile technique, 16 Fr. Returned clear yellow urine. mb9 Patient tolerated well. 11:40 XRAY Chest (1 view) In Process Unspecified. EDMS 11:[address] via stretcher. mb9 11:55 CT Head Brain wo Cont In Process Unspecified. EDMS 12:26 Luan Chaudhari MD is Hospitalizing Provider. ec2 14:20 Patient admitted, IV remains in place. bp Administered Medications: 12:24 Drug: Rocephin IV 1 grams IV at calculated rate once; Given slow IV push per pharmacy mb9 instructions Route: IV; Rate: calculated rate; Site: left antecubital; 13:42 Follow up: Response: No adverse reaction; IV Status: Completed infusion mb9 12:27 Drug: AZITHromycin IVPB 500 mg IVPB once over 1 hrs; (mix in 250 mL NS) Route: IVPB; mb9 Infused Over: 1 hrs; Site: left antecubital; 13:42 Follow up: Response: No adverse reaction; IV Status: Completed infusion mb9 Medication: 11:08 VIS not applicable for this client. mb9 Outcome: 12:26 Decision to Hospitalize by Provider. ec2 14:20 Admitted to Tele accompanied by tech, family with patient, via stretcher, room 219, bp with chart, Report called to FAX 14:20 Condition: stable 14:20 Instructed on the need for admit, 15:00 Patient left the ED. mb9 Signatures: Dispatcher [employer] Sarkis Sandoval RN RN bp Breneman, Mary Beth, RN RN mb9 Robert Mcdonald MD MD ec2 Corrections: (The following items were deleted from the chart) 13:41 12:00 Reassessment: No changes from previously documented assessment. Patient and/or mb9 family updated on plan of care and expected duration. Pain level reassessed. Patient is alert, oriented x 3, equal unlabored respirations, skin warm/dry/pink. mb9
--- NOTE | 2024-04-09 12:27 | EDPHYS ---
Physician Documentation [facility] Name: Cora Moon Age: 78 yrs Sex: Female : 1945 Arrival Date: 04/09/2024 Time: 10:57 Bed 7 Private MD: ED Physician Robert Mcdonald HPI: 04/09 11:15 This 78 yrs old Female presents to ER via EMS with complaints of possible hyoxia?. ec2 11:15 Patient arrives today for evaluation of possible hypoxia. Patient reportedly had a cool ec2 extremities, noted to be hypoxic with saturations in the 60s at resolved after oxygen placement. Patient arrived with no oxygen placed on the patient. Patient in no respiratory distress, patient is with a history of dementia, reportedly at her mental status baseline. No recent injuries or falls or trauma. Patient is unable provide any history and history is gathered from EMS given the patient's dementia.. Historical: - Allergies: 11:03 PENICILLINS; mb9 - Home Meds: 11:03 aripiprazole 10 mg Oral tablet 1 tab every day at bedtime [Active]; ascorbic acid mb9 (vitamin C) 500 mg tablet 2 times per day [Active]; buspirone 5 mg Oral tablet 1 tab 3 times per day [Active]; donepezil 5 mg Oral tablet every day at bedtime [Active]; famotidine 20 mg Oral tablet daily [Active]; Lantus U-100 Insulin 100 unit/mL Sub-Q solution 25 units daily [Active]; metformin 1 Oral tablet 1 tab 2 times per day [Active]; metoprolol tartrate 25 mg Oral tablet 2 times per day [Active]; Novolin R Sub-Q [Active]; Paxil 40 mg Oral tablet 1 tab daily [Active]; Restasis 0.05 % ophthalmic (eye) Dropperette 1 drop 2 times per day [Active]; zinc sulfate 50 mg zinc (220 mg) Oral capsule 1 cap daily [Active]; - PMHx: 11:03 Anxiety; Hypertensive disorder; Diabetes - NIDDM; Dementia; DYSPHAGIA; MUSCLE WEAKNESS; mb9 cognitive communication deficit; - Immunization history:: Adult Immunizations up to date. - Infectious Disease History:: Denies. - Social history:: Smoking status: unknown. ROS: 11:16 Constitutional: as per hpi ec2 Exam: 11:16 Constitutional: GEN: NAD Head: atraumatic Eyes: EOMI Ears: External ears are ec2 normal. CV: regular rate LUNGS: no respiratory distress, no wheezes, rales, or rhonchi ABD: non-distended, soft, nontender, no guarding, not rigid SKIN: no evidence of rashes MSK: no evidence of trauma NEURO: Confused individual Vital Signs: 11:01 BP 116 / 66; Pulse 67; Resp 15; Temp 98.3(A); Pulse Ox 100% on R/A; Weight 58.97 kg; mb9 Height 5 ft. 4 in. ; 11:50 BP 115 / 63; Pulse 70; Resp 14; Pulse Ox 100% on R/A; mb9 12:59 BP 111 / 57; Pulse 76; Resp 15; Pulse Ox 100% ; bp 13:41 BP 105 / 68; Pulse 69; Resp 16; Pulse Ox 97% on R/A; mb9 14:38 BP 116 / 66; Pulse 74; Resp 16; Pulse Ox 96% on R/A; mb9 11:01 Body Mass Index 22.31 (58.97 kg, 162.56 cm) mb9 MDM: 11:16 Patient medically screened. ec2 11:16 Data reviewed: vital signs. ED course: Patient arrives today for possible hypoxia. ec2 Examination remarkable for well-appearing nontoxic dividual who is saturating 100% on room air and is otherwise in no acute respiratory distress. Will obtain lab work, chest x-ray, CT scan of the head.. 12:02 ED course: Metabolic profile is reassuring. CBC reassuring, LFTs unremarkable, urine is ec2 noninfectious appearing, troponin within normal ranges. . 12:26 ED course: Chest x-ray with concern for pneumonia, patient remains with normal oxygen ec2 saturation, no respiratory distress. Will admit for pneumonia, antibiotics ordered, discussed with hospitalist, pending admission.. 04/09 11:15 Order name: Basic Metabolic Panel; Complete Time: 12:02 ec2 04/09 11:15 Order name: CBC with Diff; Complete Time: 12:02 ec2 04/09 11:15 Order name: Troponin HS; Complete Time: 12:02 ec2 04/09 11:15 Order name: LFT's; Complete Time: 12:02 ec2 04/09 11:15 Order name: UAM; Complete Time: 12:02 ec2 04/09 13:04 Order name: ABG eb 04/09 14:08 Order name: Valproic Acid (Depakene) Level EDMS 04/09 14:08 Order name: CBC with Automated Diff EDMS 04/09 14:08 Order name: CBC with Automated Diff EDMS 04/09 14:08 Order name: Comprehensive Metabolic Panel EDMS 04/09 14:08 Order name: Comprehensive Metabolic Panel EDMS 04/09 11:15 Order name: XRAY Chest (1 view); Complete Time: 12:18 ec2 04/09 11:15 Order name: CT Head Brain wo Cont; Complete Time: 12:18 ec2 04/09 11:15 Order name: EKG; Complete Time: 11:16 ec2 04/09 11:15 Order name: Cardiac monitoring; Complete Time: 11:16 ec2 04/09 11:15 Order name: EKG - Nurse/Tech; Complete Time: 11:16 ec2 04/09 11:15 Order name: IV Saline Lock; Complete Time: 11:16 ec2 04/09 11:15 Order name: Labs collected and sent; Complete Time: 11:16 ec2 04/09 11:15 Order name: O2 Per Protocol; Complete Time: 11:16 ec2 04/09 11:15 Order name: O2 Sat Monitoring; Complete Time: 11:16 ec2 04/09 11:15 Order name: Cath; Complete Time: 11:35 ec2 Administered Medications: 12:24 Drug: Rocephin IV 1 grams IV at calculated rate once; Given slow IV push per pharmacy mb9 instructions Route: IV; Rate: calculated rate; Site: left antecubital; 13:42 Follow up: Response: No adverse reaction; IV Status: Completed infusion mb9 12:27 Drug: AZITHromycin IVPB 500 mg IVPB once over 1 hrs; (mix in 250 mL NS) Route: IVPB; mb9 Infused Over: 1 hrs; Site: left antecubital; 13:42 Follow up: Response: No adverse reaction; IV Status: Completed infusion mb9 Disposition Summary: 04/09/24 12:26 Hospitalization Ordered Notes: Hospitalization Status: Inpatient Admission ec2 Provider: Luan Chaudhari ec2 Location: Telemetry/[facility] (Inpatient) ec2 Condition: Stable ec2 Problem: new ec2 Symptoms: have improved ec2 Bed/Room Type: Standard ec2 Room Assignment: 219(04/09/24 14:13) eb Diagnosis - Unspecified bacterial pneumonia ec2 Forms: - Medication Reconciliation Form ec2 - SBAR form ec2 - Leadership Thank You Letter ec2 Signatures: Dispatcher [employer] EDMS Niki Nunez, Nissa Rice RN RN mb9 Robert Mcdonald MD MD ec2 Corrections: (The following items were deleted from the chart) 11:16 11:15 BASIC METABOLIC PANEL+C.LAB.BRZ ordered. EDMS EDMS 11:16 11:15 CBC+H.LAB.BRZ ordered. EDMS EDMS 11:16 11:15 Troponin High Sensitivity+C.LAB.BRZ ordered. EDMS EDMS 11:16 11:15 HEPATIC FUNCTION+C.LAB.BRZ ordered. EDMS EDMS 11:16 11:15 Urinalysis W/Microscopic+U.LAB.BRZ ordered. EDMS EDMS 13:04 13:04 Arterial Blood Gas+RC.LAB.BRZ ordered. EDMS EDMS 14:13 12:26 ec2 eb
[2024-04-09 13:25] LABS: Blood Gas THB 11.6 g/dl (12-18); Blood O2 Saturation 94.5 % (92-98.5)
[2024-04-09] MEDS: ALBUTEROL 2.5 MG/3 ML NEB SOL NEB SCH (14:00)
--- NOTE | 2024-04-09 14:06 | P.HP ---
Certification for Inpatient Patient admitted to: Observation With expected LOS: <2 Midnights Patient will require the following post-hospital care: Other (return to [facility]) Practitioner: I am a practitioner with admitting privileges, knowledge of patient current condition, hospital course, and medical plan of care. Services: Services provided to patient in accordance with Admission requirements found in Title 42 Section 412.3 of the Code of Federal Regulations <Charito Cerda Eddy - Last Filed: 04/09/24 15:02> Patient History Date of Service: 04/09/24 Primary Care Provider: Cary Reason for admission: Pneumonia History of Present Illness: Ms. Moon is a 72-year-old female with a past medical history of severe dementia, essential hypertension, malnutrition, muscle disorder, neuroleptic induced Parkinson's, and depression. Secondary to her severe dementia, all medical history is found in the nursing notes from [facility]. EMS was called to the halfway today for an SpO2 sat of 60%. On their arrival patient was in no distress and showed no signs of hypoxia. On evaluation in the emergency department, her vital signs and laboratory evaluations are normal. Her chest x-ray however does show a "consolidative opacity in the retrocardiac space obscuring the left diaphragmatic dome. Possible small left pleural effusion. No pneumothorax or sizable effusion. The cardiomediastinal contours are unremarkable." On assessment for the admission in the emergency department, patient is awake but nonverbal, debilitated, cachectic, but in no distress. ABGs ordered and resulted with a pH of 7.427, pCO2 41.9, pO2 76.6, SpO2 94.5%. Secondary to her poor baseline, the concern for worsening prompted admission for observation. We will give Levaquin p.o. daily and observe for worsening. My expectation is that she could return to the halfway tomorrow. - Past Medical/Surgical History Diabetic: Yes -: Type 2 diabetes mellitus -: HTN -: herniated disc -: parkinsons diease -: depression -: dementia -: right foot surgery Psychosocial/ Personal History: Lives in [facility] - Social History Alcohol use: No CD- Drugs: Yes Caffeine use: No Place of Residence: [facility] <Charito Cerda Eddy - Last Filed: 04/09/24 15:02> Date of Service: 04/09/24 <Luan Chaudhari - Last Filed: 04/09/24 16:53> Allergies Penicillins Allergy (Intermediate, Verified 04/09/24 15:07) Home Medications: Cyclosporine [Restasis] 1 drop EACH EYE TID 08/08/20 Fluoxetine HCl [Prozac] 40 mg PO DAILY 08/08/20 Metformin HCl [Glucophage*] 1 tab PO BID 08/08/20 Metoprolol Tartrate 25 mg PO BID 08/08/20 ARIPiprazole [Aripiprazole] 20 mg PO BEDTIME 08/21/22 Pantoprazole [Protonix Tab*] 40 mg PO 1X 08/21/22 Trazodone [Desyrel*] 25 mg PO DAILY 08/21/22 Donepezil [Aricept*] 5 mg PO BEDTIME #30 tab 08/23/22 Hydrocodone 5/APAP 325 [[place] 5/325*] 1 tab PO Q6H PRN #20 tab 08/23/22 Insulin -Regular Human [Novolin -R*] See Protocol SQ ACHS ml 08/23/22 Insulin Degludec [Tresiba Flextouch U-100] 5 unit SQ DAILY #10 ml 08/23/22 Benztropine Mesylate [Cogentin] 0.5 mg PO BEDTIME 03/30/24 Carbidopa/Levodopa [Sinemet 25-100 mg Tablet] 0.5 tab PO TID 03/30/24 Divalproex [Depakote Sprinkle*] 125 mg PO BID 03/30/24 Famotidine 20 mg PO DAILY 03/30/24 Insulin Glargine,Hum.rec.anlog [Lantus Solostar] 25 units SQ DAILY 03/30/24 Insulin Regular, Human [Novolin R Flexpen] See Protocol SQ ACHS 03/30/24 Paroxetine HCl [Paxil] 50 mg PO BEDTIME 03/30/24 Review of Systems 10-point ROS is otherwise unremarkable General: As per HPI Neurological: As per HPI <Charito Cerda - Last Filed: 04/09/24 15:02> Physical Examination - Physical Exam General: Alert, In no apparent distress, Cachectic, Demented HEENT: Atraumatic, Normocephalic Neck: 2+ carotid pulse no bruit Respiratory: Normal air movement Cardiovascular: No edema, Regular rate/rhythm Capillary refill: <2 Seconds Gastrointestinal: Soft and benign Musculoskeletal: No swelling Integumentary: No rashes Neurological: Abnormal speech, Abnormal affect Lymphatics: No axilla or inguinal lymphadenopathy External genitalia: Deferred Rectal: Deferred - Studies Laboratory Data (last 24 hrs) 04/09/24 04/09/24 11:20 11:20 WBC 6.90 Hgb 12.1 Hct 37.3 Plt Count 390 Sodium 134 L Potassium 4.1 BUN 16 Creatinine 0.64 Glucose 197 H Total Bilirubin 0.3 AST < 10 L ALT < 14 Alkaline Phosphatase 109 <Charito Cerda Eddy - Last Filed: 04/09/24 15:02> - Studies Laboratory Data (last 24 hrs) 04/09/24 04/09/24 11:20 11:20 WBC 6.90 Hgb 12.1 Hct 37.3 Plt Count 390 Sodium 134 L Potassium 4.1 BUN 16 Creatinine 0.64 Glucose 197 H Total Bilirubin 0.3 AST < 10 L ALT < 14 Alkaline Phosphatase 109 <Luan Chaudhari C - Last Filed: 04/09/24 16:53> Assessment and Plan - Plan Lung opacity concerning for pneumonia ABG - normal, no hypoxia no WBC elevation no fever Nebs pulmonary toilet Levaquin 500mg po daily Dementia Continue halfway orders HTN continue home medications Debility fall precautions air mattress t,c,db q 2h DVT/GI prophylaxis lovenox pt on famotidine Discharge Plan: [facility] Plan to discharge in: 24 Hours - Advance Directives Does patient have a Living Will: No Does patient have a Durable POA for Healthcare: No - Code Status/Comfort Care Code Status Assessed: Yes (Full) <ZaidaCharito Eddy - Last Filed: 04/09/24 15:02> - Plan Pt seen and examined. I agree with the note by the SUPERVISOR COMPRESSED YEAST. Pt is a 78 yo female with past medical history of Anxiety, Htn, DM II, dementia, Dysphagia, and cognitive communication deficit who presents with hypoxia. 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 Chart review shows that pt was hypoxic, oxygen saturation dropped to 60% at the halfway. On admission, pt was oxygenating well on room air. Lab studies shows wbc 6.9, Hgb 12.1, NA 134, Cr 0.64. CXR shows pna. At bedside, pt is at her baseline. A/P: Pneumonia: Will continue levaquin and f/u blood cx. Acute resp failure with hypoxia: Due to pna. Will continue abx, prn duoneb and oxygen. Dementia: Continue supportive care Will continue home meds for other chronic medical problems. <Luan Chaudhari - Last Filed: 04/09/24 16:53>
[2024-04-09] MEDS: INSULIN REGULAR (HUMAN) 100 UNIT/ML SQ SCH (16:30)
[2024-04-09] MEDS: CARBIDOPA/LEVODOPA 25/100 TAB PO SCH (16:34)
[2024-04-09 17:35] VITALS: BMI 22.3
[2024-04-09] MEDS: IPRATROPIUM BROM 0.5MG/2.5ML NEB SCH (18:02)
[2024-04-09] MEDS: METOPROLOL TAR 25 MG TAB PO SCH (18:29)
[2024-04-09] MEDS: ARIPiprazole 5 MG TAB PO SCH (21:15)
[2024-04-09] MEDS: BENZTROPINE 1 MG TAB PO SCH (21:15)
[2024-04-09] MEDS: DONEPEZIL HCL 5 MG TAB PO SCH (21:16)
[2024-04-09] MEDS: DIVALPROEX NA 125 MG CAP PO SCH (21:16)
[2024-04-09] MEDS: JUVEN PACKET PO SCH (21:17)
[2024-04-10 04:22] LABS: Absolute Eosinophils 0.2 K/uL (0-0.5); Absolute Lymphocytes (CBC) 1.7 K/uL (0.7-4.9); Absolute Monocytes 0.5 K/uL (0.1-1.3); Absolute Neutrophil 3.2 K/uL (1.8-8.0); Basophils % 0.6 % (0-1.3); Eosinophils % 3.3 % (0-4.4); Hematocrit 34.4 % (36.0-45.0); Hemoglobin 11.1 g/dL (12.0-15.0); Lymphocytes % 30.4 % (15.3-44.8); MCH 28.6 pg (27.0-35.0); MCHC 32.3 g/dL (32.0-36.0); MCV 88.4 fL (80-100); MPV 7.8 fL (7.6-11.3); Monocytes % 8.4 % (3.3-12.3); Neutrophils % 57.3 % (41.7-73.7); Nucleated Red Blood Cells % 0.1 % (0-0); Platelets 426 thou/uL (152-406); RBC Red Blood Cell Count 3.88 M/uL (3.86-4.86); Red Cell Distribution Width 16.1 % (12.1-15.2)
[2024-04-10 04:47] LABS: AST/SGOT 11 U/L (15-37); Albumin 2.4 g/dL (3.4-5.0); Albumin/Globulin Ratio 0.5 (1.1-1.8); Alkaline Phosphatase 94 U/L (45-117); Anion Gap 5.6 mEq/L (5.0-15.0); BUN Blood Urea Nitrogen 15 mg/dL (7-18); Bicarbonate 31 mEq/L (21-32); Bilirubin Total 0.2 mg/dL (0.2-1.0); Globulin 4.4 g/dL (2.3-3.5); Glomerular Filtration Rate 104 ml/min (=/>90); Glucose Level 81 mg/dL (74-106); Potassium 3.6 mEq/L (3.5-5.1); Protein, Total 6.8 g/dL (6.4-8.2); Sodium Level 139 mEq/L (136-145)
[2024-04-10 04:48] LABS: ALT/SGPT < 14 U/L (13-56)
[2024-04-10] MEDS: INSULIN GLARGINE 100 UNIT/ML SQ SCH (09:00)
[2024-04-10] MEDS: FAMOTIDINE 20 MG TAB PO SCH (10:35)
[2024-04-10] MEDS: PARoxetine HCL 10 MG TAB PO SCH (10:37)
[2024-04-10] MEDS: levoFLOXacin 500 MG TAB PO SCH (10:37)
[2024-04-10 11:07] VITALS: O2SAT 93
--- NOTE | 2024-04-10 11:17 | P.PN ---
Subjective Date of Service: 04/10/24 Primary Care Provider: Cary Chief Complaint: Pneumonia Pt is resting comfortably in bed. She is talking more today. She denies any SOB or cough. No complaints. Review of Systems General: Unremarkable Eyes: Unremarkable ENT: Unremarkable Respiratory: Unremarkable Cardiovascular: Unremarkable Gastrointestinal: Unremarkable Genitourinary: Unremarkable Musculoskeletal: Unremarkable Integumentary: Unremarkable Neurological: Unremarkable Lymphatics: Unremarkable Physical Examination - Vital Signs Temperature: 98 F Blood Pressure: 107/59 Pulse: 66 Respirations: 20 Pulse Ox (%): 93 - Physical Exam General: Alert, In no apparent distress, Oriented x3, Cachectic HEENT: Atraumatic, Normocephalic, PERRLA Neck: Supple, 2+ carotid pulse no bruit, JVD not distended Respiratory: Clear to auscultation bilaterally, Normal air movement Cardiovascular: No edema, Normal pulses, Regular rate/rhythm, Normal S1 S2 Capillary refill: <2 Seconds Gastrointestinal: Normal bowel sounds, Soft and benign, Non-distended Musculoskeletal: No clubbing, No swelling Integumentary: No rashes, No breakdown Neurological: Normal speech, Normal strength at 5/5 x4 extr, Normal tone, Sensation intact Lymphatics: No axilla or inguinal lymphadenopathy - Studies Laboratory Data (last 24 hrs) 04/09/24 04/09/24 11:20 11:20 WBC 6.90 Hgb 12.1 Hct 37.3 Plt Count 390 Sodium 134 L Potassium 4.1 BUN 16 Creatinine 0.64 Glucose 197 H Total Bilirubin 0.3 AST < 10 L ALT < 14 Alkaline Phosphatase 109 Assessment And Plan - Plan Pneumonia: CXR shows lung opacity concerning for pneumonia. Will continue levaquin and f/u blood cx. Continue pulm toilet. Dementia: Continue supportive care. HTN: continue home meds Debility: Will continue fall precaution. change position in bed q2h. DVT ppx: lovenox GI ppx: protonix Code: full
--- NOTE | 2024-04-10 11:20 | P.PN ---
Subjective Date of Service: 04/10/24 Primary Care Provider: Cary Chief Complaint: Pneumonia Subjective: Improving (awake, alert, speaking in sentences, asking where she is, unable to stand TV on, turned off 2nd to anxiety over confusion) <Charito Cerda - Last Filed: 04/10/24 11:16> Date of Service: 04/11/24 <Luan Chaudhari - Last Filed: 04/11/24 07:40> Review of Systems 10-point ROS is otherwise unremarkable General: As per HPI Neurological: Weakness, Other (parkinsonian tremors) <Charito Cerda - Last Filed: 04/10/24 11:16> Physical Examination - Vital Signs Temperature: 98 F Blood Pressure: 107/59 Pulse: 66 Respirations: 20 Pulse Ox (%): 93 - Physical Exam General: Alert, In no apparent distress, Cooperative, Cachectic HEENT: Atraumatic, Normocephalic Neck: Supple Respiratory: Normal air movement Cardiovascular: Normal pulses Capillary refill: <2 Seconds Gastrointestinal: Soft and benign Musculoskeletal: No clubbing Integumentary: No rashes, Other (pallor) Neurological: Normal speech, Abnormal tone (increased), Abnormal affect Lymphatics: No axilla or inguinal lymphadenopathy External genitalia: Deferred Rectal: Deferred - Studies Laboratory Data (last 24 hrs) 04/09/24 04/09/24 11:20 11:20 WBC 6.90 Hgb 12.1 Hct 37.3 Plt Count 390 Sodium 134 L Potassium 4.1 BUN 16 Creatinine 0.64 Glucose 197 H Total Bilirubin 0.3 AST < 10 L ALT < 14 Alkaline Phosphatase 109 <Charito Cerda - Last Filed: 04/10/24 11:16> Assessment And Plan - Plan Lung opacity concerning for pneumonia ABG - normal, no hypoxia no WBC elevation no fever Nebs pulmonary toilet Levaquin 500mg po daily Dementia Continue jail orders HTN continue home medications Debility fall precautions air mattress t,c,db q 2h DVT/GI prophylaxis lovenox pt on famotidine <Charito Cerda - Last Filed: 04/10/24 11:16> - Plan Pt seen and examined. I agree with the note by the AUTO PARTS COUNTER PERSON. Continue levaquin. <Luan Chaudhari - Last Filed: 04/11/24 07:40>
[2024-04-10] MEDS ORDERED: HYDROCODONE/APAP 5/325 MG TAB PO PRN (15:01)
[2024-04-10] MEDS ORDERED: GLUCAGON 1 MG/VIAL IM PRN (16:23)
[2024-04-10] MEDS ORDERED: D50W 25 GM/50 ML SYRINGE IV PRN (16:23)
[2024-04-10] MEDS ORDERED: D10W 125 ML IV PRN (16:32)
[2024-04-10] MEDS: INSULIN LISPRO 100 UNIT/ML SQ SCH (16:43)
[2024-04-10] MEDS: ACETAMINOPHEN 500 MG TAB PO PRN (16:44)
[2024-04-11 03:27] LABS: Absolute Eosinophils 0.2 K/uL (0-0.5); Absolute Lymphocytes (CBC) 1.9 K/uL (0.7-4.9); Absolute Monocytes 0.5 K/uL (0.1-1.3); Absolute Neutrophil 2.7 K/uL (1.8-8.0); Basophils % 0.7 % (0-1.3); Eosinophils % 3.6 % (0-4.4); Hematocrit 33.2 % (36.0-45.0); Hemoglobin 10.9 g/dL (12.0-15.0); Lymphocytes % 35.3 % (15.3-44.8); MCH 28.8 pg (27.0-35.0); MCHC 32.7 g/dL (32.0-36.0); MPV 7.4 fL (7.6-11.3); Monocytes % 9.4 % (3.3-12.3); Nucleated Red Blood Cells % 0.1 % (0-0); Platelets 442 thou/uL (152-406); RBC Red Blood Cell Count 3.77 M/uL (3.86-4.86); Red Cell Distribution Width 15.6 % (12.1-15.2)
[2024-04-11 03:43] LABS: Anion Gap 5.8 mEq/L (5.0-15.0); Potassium 3.8 mEq/L (3.5-5.1)
--- NOTE | 2024-04-11 09:06 | P.DS ---
Admission Date: 04/09/24 Discharge Date: 04/11/24 Primary Care Provider: Cary Reason for Admission: Pneumonia Brief History of Present Illness: Ms. Moon is a 72-year-old female with a past medical history of severe dementia, essential hypertension, malnutrition, muscle disorder, neuroleptic induced Parkinson's, and depression. Secondary to her severe dementia, all medical history is found in the nursing notes from [facility]. [facility] to [facility] jail today for an SpO2 sat of 60%. On their arrival patient was in no distress and showed no signs of hypoxia. On evaluation in the emergency department, her vital signs and laboratory evaluations are normal. Her chest x-ray however does show a "consolidative opacity in the retrocardiac space obscuring the left diaphragmatic dome. Possible small left pleural effusion. No pneumothorax or sizable effusion. The cardiomediastinal contours are unremarkable." On assessment for the admission in the emergency department, patient is awake but nonverbal, debilitated, cachectic, but in no distress. ABGs ordered and resulted with a pH of 7.427, pCO2 41.9, pO2 76.6, SpO2 94.5%. Secondary to her poor baseline, the concern for worsening prompted admission for observation. We will give Levaquin p.o. daily and observe for worsening. My expectation is that she could return to the jail tomorrow. Hospital Course: Ms. Moon is a 78-year-old female from [facility]. She came in a few days ago with concern for hypoxia. On evaluation in the emergency room and an inpatient she has not had any episodes of cyanosis, yesterday she was much more alert and active, asking questions, but seemed a little fearful. This morning she is up, awake, alert, eating breakfast, engages in complete conversations. We will repeat her chest x-ray secondary to concern for developing pneumonia for which she has been receiving oral Levaquin. She is stable for return to [place] with continuation of p.o. antibiotics. Levaquin 500mg po daily #7 Okay to DC IV and DC home Follow-up with primary care provider in 1 to 2 weeks Please call the inpatient unit for any questions or concerns regarding hospital stay Return to the ER for worsening symptoms <Charito Cerda - Last Filed: 04/11/24 08:58> Admission Date: 04/09/24 Discharge Date: 04/11/24 Hospital Course: Pt seen and examined. I agree with the note by the COMMUNITY ORGANIZER. Will continue levaquin at SNF. Ok to discharge pt. <Luan Chaudhari - Last Filed: 04/11/24 10:47> Disposition: TRANSFER TO [facility] Discharge Condition: GOOD Vital Signs/Physical Exam: Temp Pulse Resp BP Pulse Ox 98.1 F 74 16 118/57 L 95 04/11/24 04:00 04/11/24 04:00 04/11/24 04:00 04/11/24 04:00 04/11/24 04:00 General: Alert, In no apparent distress, Cooperative HEENT: Atraumatic, Normocephalic Neck: Supple Respiratory: Normal air movement Cardiovascular: No edema, Normal pulses Capillary refill: <2 Seconds Gastrointestinal: Soft and benign Musculoskeletal: No clubbing, No swelling Integumentary: No rashes Neurological: Normal speech, Normal tone, Normal affect Lymphatics: No axilla or inguinal lymphadenopathy External genitalia: Deferred Rectal: Deferred Laboratory Data at Discharge: WBC 5.40 thou/uL (4.3-10.9) 04/11/24 03:09 Hgb 10.9 g/dL (12.0-15.0) L 04/11/24 03:09 Hct 33.2 % (36.0-45.0) L 04/11/24 03:09 Plt Count 442 thou/uL (152-406) H 04/11/24 03:09 Sodium 136 mEq/L (136-145) 04/11/24 03:09 Potassium 3.8 mEq/L (3.5-5.1) 04/11/24 03:09 BUN 18 mg/dL (7-18) 04/11/24 03:09 Creatinine 0.48 mg/dL (0.55-1.02) L 04/11/24 03:09 Glucose 181 mg/dL (74-106) H 04/11/24 03:09 Total Bilirubin 0.2 mg/dL (0.2-1.0) 04/10/24 03:08 AST 11 U/L (15-37) L 04/10/24 03:08 ALT < 14 U/L (13-56) 04/10/24 03:08 Alkaline Phosphatase 94 U/L (45-117) 04/10/24 03:08 <CerdaCharito Eddy - Last Filed: 04/11/24 08:58> Vital Signs/Physical Exam: Temp Pulse Resp BP Pulse Ox 98.5 F 68 18 110/51 L 100 04/11/24 08:00 04/11/24 08:00 04/11/24 08:00 04/11/24 08:00 04/11/24 08:00 Laboratory Data at Discharge: WBC 5.40 thou/uL (4.3-10.9) 04/11/24 03:09 Hgb 10.9 g/dL (12.0-15.0) L 04/11/24 03:09 Hct 33.2 % (36.0-45.0) L 04/11/24 03:09 Plt Count 442 thou/uL (152-406) H 04/11/24 03:09 Sodium 136 mEq/L (136-145) 04/11/24 03:09 Potassium 3.8 mEq/L (3.5-5.1) 04/11/24 03:09 BUN 18 mg/dL (7-18) 04/11/24 03:09 Creatinine 0.48 mg/dL (0.55-1.02) L 04/11/24 03:09 Glucose 181 mg/dL (74-106) H 04/11/24 03:09 Total Bilirubin 0.2 mg/dL (0.2-1.0) 04/10/24 03:08 AST 11 U/L (15-37) L 04/10/24 03:08 ALT < 14 U/L (13-56) 04/10/24 03:08 Alkaline Phosphatase 94 U/L (45-117) 04/10/24 03:08 <Luan Chaudhari - Last Filed: 04/11/24 10:47> Diet: ADA Activity: Ad claudia <CerdaCharito Eddy - Last Filed: 04/11/24 08:58> <Luan Chaudhari - Last Filed: 04/11/24 10:47> Home Medications: Cyclosporine [Restasis] 1 drop EACH EYE TID 08/08/20 Metformin HCl [Glucophage*] 1 tab PO BID 08/08/20 Metoprolol Tartrate 25 mg PO BID 08/08/20 ARIPiprazole [Aripiprazole] 20 mg PO BEDTIME 08/21/22 Donepezil [Aricept*] 5 mg PO BEDTIME #30 tab 08/23/22 Insulin -Regular Human [Novolin -R*] See Protocol SQ ACHS ml 08/23/22 Benztropine Mesylate [Cogentin] 0.5 mg PO BID 03/30/24 Carbidopa/Levodopa [Sinemet 25-100 mg Tablet] 0.5 tab PO TID 03/30/24 Divalproex [Depakote Sprinkle*] 125 mg PO BID 03/30/24 Famotidine 20 mg PO DAILY 03/30/24 Insulin Glargine,Hum.rec.anlog [Lantus Solostar] 25 units SQ DAILY 03/30/24 Paroxetine HCl [Paxil] 50 mg PO BEDTIME 03/30/24 Acetaminophen [Tylenol] 325 mg PO Q4H PRN 04/09/24 Codeine/APAP [Tylenol #3*] 1 tab PO Q8H PRN 04/09/24 Loperamide HCl [Imodium A-D] 2 mg PO PRN 04/09/24 levoFLOXacin [Levaquin] 500 mg PO DAILY #7 tab 04/11/24 New Medications: levoFLOXacin [Levaquin] 500 mg PO DAILY #7 tab Physician Discharge Instructions: Ms. Moon is a 78-year-old female from [facility]. She came in a few days ago with concern for hypoxia. On evaluation in the emergency room and an inpatient she has not had any episodes of cyanosis, yesterday she was much more alert and active, asking questions, but seemed a little fearful. This morning she is up, awake, alert, eating breakfast, engages in complete conversations. We will repeat her chest x-ray secondary to concern for developing pneumonia for which she has been receiving oral Levaquin. She is stable for return to [place] with continuation of p.o. antibiotics. Levaquin 500mg po daily #7 Okay to DC IV and DC home Follow-up with primary care provider in 1 to 2 weeks Please call the inpatient unit for any questions or concerns regarding hospital stay Return to the ER for worsening symptoms Followup: Ladi Townsend MD [Primary Care Provider] -
--- NOTE | 2024-04-11 10:00 | RAD REPORT ---
EXAM DESCRIPTION: RADChest Single View04/11/2024 8:51 am CLINICAL HISTORY: recheck opacity COMPARISON: Chest Single View dated 04/09/2024; Chest Single View dated 03/30/2024; Chest Single View dated 12/31/2023; Chest Single View dated 09/13/2023 TECHNIQUE: Portable AP view of the chest. FINDINGS: Stable retrocardiac airspace opacification, may relate to atelectasis or persistent pneumo james. Hyperinflation. No pneumothorax or sizable effusion. The cardiomediastinal contours are unremar kable. Rib deformities seen in the left lower chest and the right mid chest, suggesting healing or h ealed fractures. IMPRESSION: Left basilar airspace opacity, may relate to atelectasis or persistent pneumonia.
[2024-04-11 13:13] VITALS: BP 111/77; TEMP 97.2
--- NOTE | 2024-04-12 13:27 | EKG ---
Test Date: 2024-04-09 Test Time: 11:07:54 Finish Remover: PETE MEASUREMENT RESULTS: Intervals: Rate: 67 RI: 116 QRSD: 78 QT: 420 QTc: 443 Bimble: P: 58 RI: 116 QRS: 65 T: 103 INTERPRETIVE STATEMENTS: Normal sinus rhythm Nonspecific ST and T wave abnormality Abnormal ECG Compared to ECG 03/30/2024 10:10:49 ST (T wave) deviation now present Atrial premature complex(es) no longer present T-wave abnormality no longer present Electronically Signed On 04-12-24 13:18:55 CDT by Neftali Vu
== END 2024-04-11 14:12 ==
LOC: ER 10:57 → ERHOLD 13:53 → 2ND 14:27
PROVIDERS: ADMIT Hospitalist; ATTEND Hospitalist
DX: J18.9 Pneumonia, unspecified organism (principal); J96.01 Acute respiratory failure with hypoxia; F03.90 Unspecified dementia, unspecified severity, without behavioral disturbance, psychotic disturbance, mood disturbance, and anxiety; I10 Essential (primary) hypertension; E46 Unspecified protein-calorie malnutrition; G20.A1 Parkinson's disease without dyskinesia, without mention of fluctuations; M62.9 Disorder of muscle, unspecified; F32.A Depression, unspecified; R53.81 Other malaise; E11.9 Type 2 diabetes mellitus without complications; R13.10 Dysphagia, unspecified; Z68.22 Body mass index [BMI] 22.0-22.9, adult; F41.9 Anxiety disorder, unspecified
CPT/HCPCS: 96365; 85025 ×3; 81001; 80048 ×2; 36415 ×2; 82947 ×7; 80076; 80164; 84484; 80053; 70450; 71045 ×2; 94640; 82805; 51702; 99285; 36600; J1815 ×3; J7613 ×7; J7644 ×7; J7050; J0696; 93005; G0378